=== PATIENT | male | born 1960 | race African-American/Black ===

== ENCOUNTER 2020-04-19 05:54 | Outpatient (REF) | payer BC, SELFPAY ==
[2020-04-19 07:20] LABS: MANUAL DIFF FLAG NO
[2020-04-19 07:21] LABS: Basophils Percent Auto 0.3 % (0-2); Eosinophils Absolute Auto 0.4 X10*3/uL (0.0-0.4); Eosinophils Percent Auto 4.6 % (0-4); Hematocrit 41.9 % (42-52); Hemoglobin 13.7 g/dl (14.0-18.0); Imm Gran Abs Auto 0.03 X10*3/uL (0.00-0.03); Imm Gran Pct Auto 0.3 % (0.0-0.4); Lymphocytes Absolute Auto 4.2 X10*3/uL (1.2-4.9); Lymphocytes Percent Auto 46.3 % (20-40); Mean Corpuscular HGB Conc 32.7 g/dl (31.0-36.0); Mean Corpuscular Hemoglobin 29.1 pg (27.0-33.0); Mean Platelet Volume 12.1 fL (9.4-12.4); Monocytes Percent Auto 11.6 % (2-11); Neutrophils Absolute Auto 3.3 X10*3/uL (2.0-8.3); Neutrophils Percent Auto 36.9 % (45-73); Platelet Count 107 X10*3/uL (160-400); Red Blood Count 4.71 X10*6/uL (4.60-5.80); Red Cell Distribution Width 12.9 % (11.0-16.0)
[2020-04-19 07:34] LABS: Estimated Average Glucose 157 mg/dL; Hemoglobin A1c % 7.1 %
[2020-04-19 07:52] LABS: Alanine Aminotransferase 18 U/L (0-40); Alkaline Phosphatase 61 U/L (39-117); Anion Gap 13 (12-20); Aspartate Amino Transferase 27 U/L (5-37); Bilirubin Total 0.3 mg/dL (0.0-1.0); Blood Urea Nitrogen 37 mg/dL (9-16); Calcium 9.2 mg/dL (8.4-10.2); Carbon Dioxide 23 mmol/L (22-29); Chloride 105 mmol/L (96-108); Cholesterol 277 mg/dL; Estimated Glomerular Filt Rate 24; Glucose Random 184 mg/dL (60-115); HDL Cholesterol 27 mg/dL; Potassium 4.2 mmol/l (3.3-5.1); Sodium 137 mmol/L (135-145); Total Protein 7.4 g/dL (6.5-8.0); Triglycerides 727 mg/dL
[2020-04-20 14:47] LABS: Absolute CD3 Count 2829 cells/uL (840-3060); Absolute CD4 Count 1203 cells/uL (490-1740); Absolute CD8 Count 1442 cells/uL (180-1170); Absolute Lymphocytes 4272 cells/uL (850-3900); CD4 CD8 Ratio 0.83 (0.86-5.00); Percent CD3 Cells 66 % (57-85); Percent CD4 Cells 28 % (30-61); Percent CD8 Cells 34 % (12-42)
[2020-04-21 14:48] LABS: HIV RNA PCR Qn Copies 97 copies/mL (NOT DETECTED); HIV RNA PCR Qn Log Copies 1.99 (NOT DETECTED)
== END 2020-04-19 05:55 | disposition home or self-care (01) ==
LOC: HO.LAB 05:54
PROVIDERS: PCP Family Medicine; Visit Provider Family Medicine
DX: B20 Human immunodeficiency virus [HIV] disease (principal); E11.8 Type 2 diabetes mellitus with unspecified complications; E78.5 Hyperlipidemia, unspecified
CPT/HCPCS: 36415; 80053; 80061; 83036; 85025; 86359; 86360; 87536

== ENCOUNTER 2020-07-20 15:23 | Outpatient (REF) | payer BC, SELFPAY ==
[2020-07-20 16:09] LABS: PLT CLUMP 1; Red Cell Distribution Width 13.3 % (11.0-16.0); SCAN SMEAR FLAG 1
[2020-07-20 16:11] LABS: Basophils Percent Auto 0.5 % (0-2); Eosinophils Absolute Auto 0.3 X10*3/uL (0.0-0.4); Hematocrit 38.6 % (42-52); Hemoglobin 12.7 g/dl (14.0-18.0); Imm Gran Abs Auto 0.01 X10*3/uL (0.00-0.03); Imm Gran Pct Auto 0.1 % (0.0-0.4); Lymphocytes Absolute Auto 3.1 X10*3/uL (1.2-4.9); Lymphocytes Percent Auto 41.5 % (20-40); Mean Corpuscular HGB Conc 32.9 g/dl (31.0-36.0); Mean Corpuscular Hemoglobin 29.1 pg (27.0-33.0); Mean Corpuscular Volume 88.5 fL (80-98); Mean Platelet Volume 11.5 fL (9.4-12.4); Monocytes Absolute Auto 0.8 X10*3/uL (0.1-1.2); Monocytes Percent Auto 11.1 % (2-11); Neutrophils Absolute Auto 3.2 X10*3/uL (2.0-8.3); Neutrophils Percent Auto 42.8 % (45-73); Platelet Count 102 X10*3/uL (160-400); Red Blood Count 4.36 X10*6/uL (4.60-5.80); White Blood Count 7.5 X10*3/uL (4.8-10.8)
[2020-07-20 16:25] LABS: Alanine Aminotransferase 18 U/L (0-40); Albumin Level 3.9 g/dL (3.5-5.0); Alkaline Phosphatase 60 U/L (39-117); Anion Gap 12 (12-20); Aspartate Amino Transferase 24 U/L (5-37); Bilirubin Total 0.3 mg/dL (0.0-1.0); Blood Urea Nitrogen 31 mg/dL (9-16); Carbon Dioxide 26 mmol/L (22-29); Chloride 106 mmol/L (96-108); Estimated Glomerular Filt Rate 23; Glucose Random 156 mg/dL (60-115); Potassium 4.8 mmol/L (3.3-5.1); Sodium 139 mmol/L (135-145); Total Protein 7.1 g/dL (6.5-8.0)
[2020-07-21 09:44] LABS: CT PCR NOT DETECTED (Not Detect.); NG PCR NOT DETECTED (Not Detect.)
[2020-07-21 13:07] LABS: Absolute CD4 Count 738 cells/uL (490-1740); Absolute CD8 Count 1054 cells/uL (180-1170); Absolute Lymphocytes 3111 cells/uL (850-3900); Percent CD4 Cells 24 % (30-61); Percent CD8 Cells 34 % (12-42)
[2020-07-22 13:06] LABS: HCV Log PCR <1.18 NOT DETECTED Log IU/mL (NOT DETECTED); HepC Viral Load <15 NOT DETECTED IU/mL (NOT DETECTED)
[2020-07-22 17:02] LABS: HIV RNA PCR Qn Copies 53 Copies/mL; HIV RNA PCR Qn Log Copies 1.72 Log cps/mL
[2020-07-22 17:51] LABS: TS Negative Control Passed; TS Panel A 2; TS Panel B 0; TS Positive Control Passed; TSpotTB Negative (SeeBelow)
== END 2020-07-20 15:24 | disposition home or self-care (01) ==
LOC: HO.LAB 15:23
PROVIDERS: PCP Family Medicine; Visit Provider Internal Medicine Infectious Disease
DX: D83.1 Common variable immunodeficiency with predominant immunoregulatory T-cell disorders (principal)
CPT/HCPCS: 36415; 80053; 85025; 86360; 86481; 87491; 87522; 87536; 87591; 87900; 87901

== ENCOUNTER 2020-10-02 15:32 | Outpatient (REF) | payer BC, SELFPAY | END 2020-10-02 15:33 | disposition home or self-care (01) | LOC: HO.LAB 15:32 | PROVIDERS: Absent Provider Family Medicine; PCP Family Medicine; Visit Provider Internal Medicine Infectious Disease | DX: Z13.89 Encounter for screening for other disorder (principal) ==

== ENCOUNTER 2020-11-14 12:57 | Outpatient (REF) | payer BC, SELFPAY ==
--- NOTE | ~2020-11-14 | XR_ITS ---
EXAMINATION: XR HIP, LEFT CLINICAL INFORMATION: Pain COMPARISON: None TECHNIQUE: Two views of the left hip. FINDINGS: Bones and soft tissues are normal. No fracture. Alignment is anatomic. Hip joint space is maintained. XR/XR hip LT min 2V IMPRESSION: Normal left hip.
== END 2020-11-14 12:58 | disposition home or self-care (01) ==
LOC: HO.XRAY 12:57
PROVIDERS: Absent Provider Family Medicine; PCP Family Medicine; Visit Provider Emergency Medicine
DX: M25.552 Pain in left hip (principal)
CPT/HCPCS: 73502

== ENCOUNTER 2021-01-04 14:00 | Outpatient (RCR) | payer BC, SELFPAY | END 2021-01-19 15:11 | disposition home or self-care (01) | LOC: HO.PT 14:00 | PROVIDERS: PCP Nurse Practitioner Primary Care; Visit Provider Nurse Practitioner Primary Care | DX: M79.605 Pain in left leg (principal) | CPT/HCPCS: 97110; 97112; 97162; 97530 ==

== ENCOUNTER 2021-02-14 08:23 | Outpatient (REF) | payer BC, SELFPAY ==
--- NOTE | ~2021-02-14 | US_ITS ---
EXAMINATION: US ABDOMEN COMPLETE CLINICAL INFORMATION: Cirrhosis. COMPARISON: Abdominal ultrasound 07/28/2015. CT abdomen and pelvis 11/27/2017. TECHNIQUE: Real-time imaging of the abdominal viscera. FINDINGS: PANCREAS: The visualized pancreas is normal in size and contour and echogenicity with no pancreatic ductal distention or retroperitoneal effusion. The distal body and tail are obscured by bowel gas and not imaged. ABDOMINAL AORTA: The proximal, mid, and distal segments are normal in caliber. INFERIOR VENA CAVA: Visualized portions are normal. LIVER: The liver is within normal size and liver surface is smooth in contour. The parenchymal echogenicity appears normal and homogeneous. There is no focal parenchymal lesion or intrahepatic ductal dilatation. Doppler shows portal flow towards the liver. GALLBLADDER: No visible gallstone or sludge. No gallbladder wall thickening or pericholecystic fluid. Negative sonographic Lewis's sign. COMMON BILE DUCT: Normal in caliber measuring 0.3 cm in diameter. RIGHT KIDNEY: No hydronephrosis or renal calculi. The kidney measures 10.5 cm in maximum dimension. There is a simple cyst lower pole measuring 1.7 cm in size. A few other smaller subcentimeter cysts are also present upper to midpole. No additional follow-up required. LEFT KIDNEY: No hydronephrosis or renal calculi. The kidney measures 9.2 cm in maximum dimension. There is a simple cyst interpolar region measuring 1.1 cm. No additional follow-up required. SPLEEN: Normal. The spleen measures 11.5 cm in maximum dimension. FREE FLUID: None. US/US abdomen complete IMPRESSION: 1. Liver normal in size and homogeneous. Portal flow towards the liver. 2. Spleen normal in size. No ascites. 3. No cholelithiasis or ductal dilatation.
== END 2021-02-14 08:24 | disposition home or self-care (01) ==
LOC: HO.US 08:23
PROVIDERS: PCP Family Medicine; Visit Provider Family Medicine
DX: K74.69 Other cirrhosis of liver (principal)
CPT/HCPCS: 76700

== ENCOUNTER 2021-08-14 07:39 | Outpatient (REF) | payer BC, SELFPAY ==
--- NOTE | ~2021-08-14 | US_ITS ---
EXAMINATION: US ABDOMEN COMPLETE CLINICAL INFORMATION: Cirrhosis of liver. COMPARISON: Ultrasound abdomen complete 07/20/2021 and 02/14/2021. CT abdomen and pelvis 11/27/2017. TECHNIQUE: Real-time imaging of the abdominal viscera. FINDINGS: PANCREAS: Visualized pancreatic head and body are unremarkable. The distal body and tail are obscured by bowel gas. ABDOMINAL AORTA: The proximal, mid, and distal segments are normal in caliber. INFERIOR VENA CAVA: Visualized portions are normal. LIVER: The liver is normal in size. The liver contour is normal. Liver parenchyma is coarsened and heterogeneous compatible with history of cirrhosis. No focal hepatic lesion. There is no intrahepatic biliary duct dilatation seen. GALLBLADDER: The gallbladder is completely contracted. COMMON BILE DUCT: Normal in caliber measuring 0.3 cm in diameter. RIGHT KIDNEY: There is an anechoic 2.1 cm cyst at the lower pole of the kidney as well as an anechoic 9 mm cyst at the upper pole. No hydronephrosis or renal calculi. The kidney measures 11.4 cm in maximum dimension. LEFT KIDNEY: There is an anechoic simple cyst at the midpole which measures 1.3 x 1.1 x 1.5 cm. No hydronephrosis or renal calculi. The kidney measures 10.3 cm in maximum dimension. SPLEEN: Normal. The spleen measures 12.0 cm in maximum dimension. FREE FLUID: None. US/US abdomen complete IMPRESSION: Coarsened liver parenchyma compatible with cirrhosis without evidence of focal lesion. Incidental note of contracted gallbladder despite fasting state.
== END 2021-08-14 07:40 | disposition home or self-care (01) ==
LOC: HO.US 07:39
PROVIDERS: Visit Provider Family Medicine
DX: K74.69 Other cirrhosis of liver (principal)
CPT/HCPCS: 76700

== ENCOUNTER 2022-01-29 14:41 | Outpatient (REF) | payer BC, SELFPAY ==
--- NOTE | ~2022-01-29 | XR_ITS ---
EXAMINATION: XR SHOULDER, RIGHT CLINICAL INFORMATION: Pain right shoulder COMPARISON: None TECHNIQUE: AP external rotation, Grashey, scapular Y, and axillary views of the right shoulder. FINDINGS: There is loss of right AC joint space with periarticular spurring. Glenohumeral joint space is minimally reduced as well. No fracture, loose bodies or bony erosive changes seen no soft tissue calcification. XR/XR shoulder RT min 2V IMPRESSION: Mild degenerative changes right AC joint. No visible acute fracture or dislocation seen.
== END 2022-01-29 14:42 | disposition home or self-care (01) ==
LOC: HO.XRAY 14:41
PROVIDERS: PCP Family Medicine; Visit Provider Internal Medicine Geriatric Medicine
DX: M25.511 Pain in right shoulder (principal)
CPT/HCPCS: 73030

== ENCOUNTER 2022-02-27 09:52 | Outpatient (REF) | payer BC, SELFPAY ==
--- NOTE | ~2022-02-27 | US_ITS ---
EXAMINATION: US ABDOMEN COMPLETE CLINICAL INFORMATION: Chronic viral hepatitis C. HIV positive. COMPARISON: Ultrasound abdomen complete 08/14/2021 and 07/20/2021. CT abdomen and pelvis 11/27/2017. TECHNIQUE: Real-time imaging of the abdominal viscera. FINDINGS: PANCREAS: There is mild generalized increase in parenchymal echotexture, likely reflecting fatty infiltration. No mass or ductal dilatation is noted. There is no peripancreatic acute fluid collection. ABDOMINAL AORTA: The proximal, mid, and distal segments are normal in caliber. INFERIOR VENA CAVA: Visualized portions are normal. LIVER: The liver is normal in size, with a longitudinal span of 14.2 cm The liver contour is normal. Parenchymal echogenicity is coarse. No focal hepatic lesion. There is no intrahepatic biliary duct dilatation seen. GALLBLADDER: The gallbladder is contracted. No calculus or pericholecystic fluid is seen. COMMON BILE DUCT: Normal in caliber measuring 0.3 cm in diameter. RIGHT KIDNEY: At the lower pole, a 2.3 cm in maximal diameter anechoic, simple cyst is seen. No hydronephrosis or renal calculi. The kidney measures 12.1 cm in maximum dimension. LEFT KIDNEY: At the interpolar aspect, a 1.3 cm in maximal diameter anechoic, simple cyst is seen. No hydronephrosis or renal calculi. The kidney measures 10.6 cm in maximum dimension. At the lower pole, there is a vessel showing turbulent, bidirectional flow, possibly reflecting an arteriovenous fistula. There is a history of prior left renal biopsy. SPLEEN: Normal. The spleen measures 11.4 cm in maximum dimension. FREE FLUID: There is a small amount of free fluid posterior to the left hepatic lobe. US/US abdomen complete IMPRESSION: 1. There is generalized increase in hepatic echotexture, consistent with fatty infiltration or hepatocellular disease. Please correlate clinically. No focal hepatic mass or intrahepatic biliary dilatation is seen. 2. Benign, now simple appearing bilateral renal cysts are seen, for which no imaging follow-up is recommended. 3. There is a vessel at the inferior left kidney showing turbulent, bidirectional flow. The possibility of a fistula is raised, given the history of prior biopsy at this location. 4. There is a small amount of anechoic, free fluid noted posterior to the left hepatic lobe.
== END 2022-02-27 09:53 | disposition home or self-care (01) ==
LOC: HO.US 09:52
PROVIDERS: Visit Provider Family Medicine
DX: B18.2 Chronic viral hepatitis C (principal); B20 Human immunodeficiency virus [HIV] disease
CPT/HCPCS: 76700

== ENCOUNTER 2022-04-10 14:00 | Outpatient (RCR) | payer BC, SELFPAY ==
--- NOTE | 2022-03-01 14:01 | MHC.PT.EP ---
[facility] [place] Office [place] Office [place] Office [address] Steph Wadsworth [address] [phone] F: [phone] F: [phone] F: [phone] F: [phone] Physical Therapy Plan of Care Date of Evaluation: Date of Surgery: N/A Diagnosis: R rotator cuff tendonitis (RC) Assessment: pt is a 62 y/o male presenting to physical therapy w/ referring diagnosis of right rotator cuff tendinitis. Impairments include pain, decreased range of motion, decreased strength, impaired functional mobility, impaired postural awareness, and altered ambulation mechanics. pt is a good candidate for skilled PT due to age, potential remediation of impairments, typical disease/condition progression and prognosis, comorbidities, and motivation. pt would benefit from skilled PT intervention to provide a tailored strengthening and stretching exercise program, functional training, gait training, postural re-training, neuromuscular re-education, modalities as needed for pain, equipment safety demonstration. Frequency and Duration: The patient will be seen 2x/wk for 4 wks Short Term Goals: pt will be I w/ HEP to promote self-management of condition. pt will improve R shoulder flexion by 10 degrees to promote ease in reaching for objects on higher shelves. Senior Care Goals: pt will report a statistically significant improvement in self-reported outcome measure, SPADI, to promote return to PLOF. pt will tolerate x5 reps 50# object lifting overhead w/o verbal cueing for mechanics to promote return to work. Treatment Plan: Modalities to reduce pain, spasms and effusion. Manual therapy to restore motion and function. Therapeutic exercise to improve strength and flexibility. Neuromuscular re-education for posture and balance. Therapeutic activities to return to functional activities of daily living. Electronically signed by: Charley Manning PT, DPT Please sign and return to therapist. Thank you for your referral.
--- NOTE | 2022-04-23 17:19 | MHC.PT.DC ---
[facility] [place] Office [place] Office [place] Office [address] Steph Wadsworth 140 [facility] [phone] F: [phone] F: [phone] F: [phone] F: [phone] Physical Therapy Discharge Report Diagnosis: R rotator cuff tendonitis (RC) Date of Surgery: N/A Date of Evaluation: 03/01/22 Date of Discharge: 04/23/22 Treatments to Date: 7 Cancellations to Date: 2 No Shows to Date: 0 Discharge Status: Recommend MD Follow-up Visit Non-compliance Discharge Summary: The patient cancelled his last scheduled visit and has not attempted to make any more appointments in 25 days. He is being discharged from this physical therapy plan of care at this time. At time of last appointment he was reporting little to no improvement of his shoulder pain. He was planning to schedule an MRI of the shoulder soon. Electronically signed by: Charley Manning PT, DPT Please sign and return to therapist. Thank you for your referral.
== END 2022-04-23 17:20 | disposition home or self-care (01) ==
LOC: HO.PT 14:00
PROVIDERS: PCP Family Medicine; Visit Provider Physician Assistant
DX: M75.80 Other shoulder lesions, unspecified shoulder (principal)
CPT/HCPCS: 97110; 97162

== ENCOUNTER 2022-04-18 15:47 | Outpatient (REF) | payer BC, SELFPAY ==
--- NOTE | ~2022-04-18 | MR_ITS ---
EXAMINATION: MR SHOULDER WITHOUT CONTRAST, RIGHT CLINICAL INFORMATION: Right shoulder bicipital tendinitis. Right shoulder pain x3 months. COMPARISON: Radiograph dated 01/29/2022. TECHNIQUE: MRI of the shoulder without contrast was performed on a high-field scanner. FINDINGS: ROTATOR CUFF: A full-thickness insertional tear of the supraspinatus tendon measures 1.8 cm AP with retraction of the torn fibers medially by 1.8 cm. A partial-thickness, articular-sided component of the tear extends posteriorly into the anterior fibers of the infraspinatus tendon by 1 cm. Undersurface fibers or delaminated and medially retracted off along with the biceps britany to the level of the humeral head apex (2.4 cm). Plantar is moderate subscapularis tendinosis with fraying of the cephalad fibers at the insertion on the lesser tuberosity. Underlying subcortical cystic change and edema signal are evident at the lesser tuberosity in this region. There is grade 1 fatty replacement of the supraspinatus muscle without significant associated atrophy. Rotator cuff musculature is otherwise unremarkable. BICEPS: Normal. CORACOACROMIAL ARCH: The undersurface of the acromion is curved with a prominent anterior subacromial spur. Subacromial space measures 7 mm. The coracohumeral interval measures 7 mm. LABRUM/CAPSULE: A subtle focal tear is suspected at the posterosuperior glenoid labrum between the 10 o'clock position and 9 o'clock position, best seen on image 11/25 of series 2. The glenoid labrum appears degenerated posteriorly and relatively diminutive, partially replaced by marginal osteophytes. Labrum is otherwise intact. Joint capsule is unremarkable. GLENOHUMERAL JOINT/MARROW: No fracture or malalignment. Fgcaf-se-[id number] size marginal osteophytes at the glenoid, more pronounced posteriorly. Articular cartilage appears relatively well-preserved. No fractures. No effusion or loose bodies. MR/MR shoulder RT wo con IMPRESSION: 1. A 1.8 x 1.8 cm full-thickness insertional tear of the supraspinatus tendon with partial-thickness articular-sided extension into the anterior fibers of the infraspinatus tendon. No significant muscle atrophy. 2. Moderate subscapularis tendinosis with fraying of the cephalad fibers. 3. Prominent anterior subacromial spur. 4. Minimal glenohumeral osteoarthritis with a focal tear of the posterosuperior glenoid labrum.
== END 2022-04-18 15:48 | disposition home or self-care (01) ==
LOC: HO.MRI 15:47
PROVIDERS: Visit Provider Physician Assistant
DX: M75.21 Bicipital tendinitis, right shoulder (principal); M75.80 Other shoulder lesions, unspecified shoulder
CPT/HCPCS: 73221

== ENCOUNTER → 2022-05-02 14:27 | Outpatient (BNVA) | payer BC, SELFPAY | PROVIDERS: PCP Family Medicine; Visit Provider Orthopaedic Surgery | DX: Z13.89 Encounter for screening for other disorder (principal) ==

== ENCOUNTER 2022-05-03 09:23 | Outpatient (REF) | payer BC, SELFPAY ==
--- NOTE | ~2022-05-03 | US_ITS ---
EXAMINATION: US ABDOMEN COMPLETE CLINICAL INFORMATION: Chronic viral hepatitis C. COMPARISON: Ultrasound abdomen complete 02/27/2022 and 08/14/2021. CT abdomen and pelvis 11/27/2014. TECHNIQUE: Real-time imaging of the abdominal viscera. FINDINGS: PANCREAS: Normal. The visualized pancreatic head and body are normal in appearance. The remainder of the pancreas is obscured from visualization by the overlying bowel gas. ABDOMINAL AORTA: The proximal, mid, and distal segments are normal in caliber. INFERIOR VENA CAVA: Visualized portions are normal. LIVER: There is diffuse increased liver parenchymal echogenicity. No focal hepatic mass is seen. The liver is normal in size and contour. No biliary ductal dilatation. GALLBLADDER: The gallbladder is somewhat contracted, without evidence of stones, sludge, polyps, wall thickening or pericholecystic fluid. COMMON BILE DUCT: Normal in caliber measuring 0.2 cm in diameter. RIGHT KIDNEY: There are multiple simple cysts, the largest at the lower pole showing a maximal diameter of 2.5 cm. No hydronephrosis or renal calculi. The kidney measures 11.4 cm in maximum dimension. LEFT KIDNEY: There are multiple simple cysts, the largest at the interpolar aspect showing a maximal diameter 1.3 cm. No hydronephrosis or renal calculi. The kidney measures 10.8 cm in maximum dimension. At the lower pole, there is prominent vasculature bilaterally turbulent flow and increased velocities, suspicious for an arteriovenous fistula. SPLEEN: Normal. The spleen measures 11.6 cm in maximum dimension. FREE FLUID: None. US/US abdomen complete IMPRESSION: 1. There is generalized increase in hepatic echotexture, consistent with fatty infiltration or hepatocellular disease. Please correlate clinically. Provided history of chronic hepatitis C noted. No focal hepatic mass or intrahepatic biliary dilatation is seen. 2. There are benign, simple bilateral renal cysts, which no imaging follow-up recommended. 3. Question left renal lower pole arteriovenous fistula, again noted at the site of a prior renal biopsy.
== END 2022-05-03 09:24 | disposition home or self-care (01) ==
LOC: HO.US 09:23
PROVIDERS: PCP Family Medicine; Visit Provider Family Medicine
DX: B18.2 Chronic viral hepatitis C (principal); K74.60 Unspecified cirrhosis of liver
CPT/HCPCS: 76700

== ENCOUNTER 2022-05-17 07:19 | Outpatient (REF) | payer BC, SELFPAY ==
--- NOTE | ~2022-05-17 | XR_ITS ---
EXAMINATIONS: XR wrist RT min 3V, XR hand RT min 3V CLINICAL INFORMATION: Reason for Exam M25.539 - Pain in unspecified wrist COMPARISON: None VIEWS: Frontal lateral and oblique right wrist and right hand. FINDINGS: Mild degenerative osteoarthritic changes of the first carpometacarpal joint. Small round radiolucency with sclerotic border probably bone cyst in the head of the third metacarpal. There is no evidence of acute fracture or dislocation. The distal radius is intact. The radiocarpal, intercarpal and carpal/metacarpal joints are intact. Ulnar styloid is intact. The scapholunate joint is normal. The lunate is properly positioned. The [id number]-qdzv-qhyzjibg access is normal. The scaphoid bone is a properly articulating. XR/XR wrist RT min 3V IMPRESSION: * No fracture. * Mild degenerative osteoarthritis first carpometacarpal joint. * Small radiolucency with sclerotic border in the head of the third metacarpal suggesting nonaggressive bone lesion such as probably bone cyst or small enchondroma..
--- NOTE | ~2022-05-17 | XR_ITS ---
EXAMINATIONS: XR wrist RT min 3V, XR hand RT min 3V CLINICAL INFORMATION: Reason for Exam M25.539 - Pain in unspecified wrist COMPARISON: None VIEWS: Frontal lateral and oblique right wrist and right hand. FINDINGS: Mild degenerative osteoarthritic changes of the first carpometacarpal joint. Small round radiolucency with sclerotic border probably bone cyst in the head of the third metacarpal. There is no evidence of acute fracture or dislocation. The distal radius is intact. The radiocarpal, intercarpal and carpal/metacarpal joints are intact. Ulnar styloid is intact. The scapholunate joint is normal. The lunate is properly positioned. The [id number]-skgr-xxnbedso access is normal. The scaphoid bone is a properly articulating. XR/XR hand RT min 3V IMPRESSION: * No fracture. * Mild degenerative osteoarthritis first carpometacarpal joint. * Small radiolucency with sclerotic border in the head of the third metacarpal suggesting nonaggressive bone lesion such as probably bone cyst or small enchondroma..
== END 2022-05-17 07:20 | disposition home or self-care (01) ==
LOC: HO.HOSX 07:19
PROVIDERS: Visit Provider Physician Assistant
DX: L03.113 Cellulitis of right upper limb (principal); M79.641 Pain in right hand; M25.531 Pain in right wrist
CPT/HCPCS: 73110; 73130

== ENCOUNTER → 2022-05-20 09:22 | Outpatient (BNVA) | payer BC, SELFPAY | PROVIDERS: PCP Family Medicine; Visit Provider Physician Assistant | DX: L03.113 Cellulitis of right upper limb (principal) ==

== ENCOUNTER → 2022-05-24 10:37 | Outpatient (BNVA) | payer BC, SELFPAY | PROVIDERS: PCP Family Medicine; Visit Provider Physician Assistant | DX: Z13.89 Encounter for screening for other disorder (principal) ==

== ENCOUNTER → 2022-06-03 14:21 | Outpatient (BNVA) | payer BC, SELFPAY | PROVIDERS: PCP Family Medicine; Visit Provider Physician Assistant | DX: Z13.89 Encounter for screening for other disorder (principal) ==

== ENCOUNTER → 2022-07-08 13:03 | Outpatient (BNVA) | payer BC, SELFPAY | PROVIDERS: PCP Family Medicine; Visit Provider Physician Assistant | DX: Z13.89 Encounter for screening for other disorder (principal) ==

== ENCOUNTER 2022-07-17 11:24 | Inpatient (IN) | payer BC, SELFPAY ==
[2022-05-30 15:40] VITALS: BMI 34.0
--- NOTE | 2022-07-16 09:40 | P.CONAN_ITS ---
Documented by User: Maegan Gonzalez NP 07/16/22 09:51 HPI - Anesthesia Eval Consult details Narrative: 62yo M for Right Arthroscopic Rotator Cuff Repair Stage IV-V CKD, follows renal. Last seen 03/2022 with referral to [facility] transplant program. [facility] Active Problems Active Problems: All Active Problems (Updated 05/31/22 @ 09:46 by Karyn Toro RN) Rotator cuff tendonitis (Acute) Biceps tendinitis of right shoulder (Acute) Rotator cuff tear arthropathy of right shoulder (Acute) Diabetes mellitus (Acute) Cellulitis of right hand (Acute) Past Medical History Medical History Chronic kidney disease (CKD) Diabetes Hand pain, right HIV (human immunodeficiency virus infection) Hx of hepatitis C Hypertension Surgical History Surgical History Hx of circumcision Hx of colonoscopy Social History Social History Are you a primary director of patient care to a significant other at home: No Do you presently have visiting nurse or other home services: No Patient Tobacco Use Status: Former Tobacco user Quit Date: 2012 Tobacco use type: Cigarette Use of substances other than those prescribed or required for medical reasons: No Have you been hit, kicked, punched, or otherwise hurt by someone within the past year? 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 Meds Allergies Allergy/AdvReac Type Severity Reaction Status Date / Time No Known Allergies Allergy Verified 07/08/22 13:09 [No Known Allergies*] Home Medications Medication Instructions Recorded Confirmed Last Taken Type dolutegravir 50 mg-rilpivirine 25 1 tab PO DAILY 02/14/22 05/30/22 Unknown History mg tablet (Juluca) doxazosin 2 mg tablet 2 mg PO DAILY 02/14/22 05/30/22 Unknown History ergocalciferol (vitamin D2) 1,250 1,250 mcg PO QWEEK 02/14/22 05/30/22 Unknown History mcg (50,000 unit) capsule losartan 50 mg tablet 50 mg PO DAILY 02/14/22 05/30/22 Unknown History sitagliptin phosphate 25 mg tablet 25 mg PO DAILY 02/14/22 05/30/22 Unknown History (Januvia) acetaminophen 500 mg capsule 1,000 mg PO Q6H PRN Pain 05/30/22 05/30/22 Unknown History cholecalciferol (vitamin D3) 25 25 mcg PO DAILY 05/30/22 05/30/22 Unknown History mcg (1,000 unit) capsule (Vitamin D3) omega 3-fyk-qhr-fish oil 1,000 mg 1 cap PO DAILY 05/30/22 05/30/22 Unknown History (120 mg-180 mg) capsule (Fish Oil) Exam Exam Date and Time: July 16, 2022 0940 Height,Weight and Vital Signs: Height 5 ft 8 in Weight 101.605 kg Assessment and Plan Assessment Anesthesia Assessment: Chart Reviewed Documented by User: Charles Bae MD 07/17/22 08:52 PMFSH Past Medical History Medical History Chronic kidney disease (CKD) Diabetes Hand pain, right HIV (human immunodeficiency virus infection) Hx of hepatitis C Hypertension Family History Family history of problems with anesthesia: No Surgical History Surgical History Hx of circumcision Hx of colonoscopy History of Problems with Anesthesia: No Social History Social History Are you a primary director of patient care to a significant other at home: No Do you presently have visiting nurse or other home services: No Patient Tobacco Use Status: Former Tobacco user Quit Date: 2012 Tobacco use type: Cigarette Use of substances other than those prescribed or required for medical reasons: No Have you been hit, kicked, punched, or otherwise hurt by someone within the past year? 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 Meds Allergies Allergy/AdvReac Type Severity Reaction Status Date / Time No Known Allergies Allergy Verified 07/08/22 13:09 [No Known Allergies*] Home Medications Medication Instructions Recorded Confirmed Last Taken Type dolutegravir 50 mg-rilpivirine 25 1 tab PO DAILY 02/14/22 05/30/22 Unknown History mg tablet (Juluca) doxazosin 2 mg tablet 2 mg PO DAILY 02/14/22 05/30/22 Unknown History ergocalciferol (vitamin D2) 1,250 1,250 mcg PO QWEEK 02/14/22 05/30/22 Unknown History mcg (50,000 unit) capsule losartan 50 mg tablet 50 mg PO DAILY 02/14/22 05/30/22 Unknown History sitagliptin phosphate 25 mg tablet 25 mg PO DAILY 02/14/22 05/30/22 Unknown History (Januvia) acetaminophen 500 mg capsule 1,000 mg PO Q6H PRN Pain 05/30/22 05/30/22 Unknown History cholecalciferol (vitamin D3) 25 25 mcg PO DAILY 05/30/22 05/30/22 Unknown History mcg (1,000 unit) capsule (Vitamin D3) omega 8-qod-zgf-fish oil 1,000 mg 1 cap PO DAILY 05/30/22 05/30/22 Unknown History (120 mg-180 mg) capsule (Fish Oil) Exam Airway Mallampati Class: II TM Dist: >3cm Neck ROM: Limited Heart: rrr Lungs: cta Assessment and Plan Assessment Anesthesia Assessment: Anesthesia Plan Discussed Final Anesthetic Review Family History of Problems with Anesthesia: No History of Problems with Anesthesia: No NPO: Yes ASA Class: III Final Preanesthetic Review: No Changes in Pt Med Stat, Meds/Allgs Chart Reviewed, Consent Obtained/Reviewed and Anes Risks/Benef Reviewed Patient Risk: Intermediate Procedure Risk: Intermediate Anesthetic Plan Anesthetic Plan: GA and Regional Block Disposition: Standard PACU
[2022-07-17] VITALS (15 sets, daily range): BP systolic 97–177; BP diastolic 56–91; PULSE 75–94; RESP 15–18; TEMP 36.1–36.7; O2SAT 95–98; BMI 34.0
--- NOTE | 2022-07-17 | ECG_ITS ---
Test Reason : HTN Blood Pressure : / mmHG Vent. Rate : 089 BPM Atrial Rate : 089 BPM P-R Int : 160 ms QRS Dur : 076 ms QT Int : 354 ms P-R-T Axes : 056 -10 000 degrees QTc Int : 430 ms Normal sinus rhythm Normal ECG No previous ECGs available Referred By: Maegan Gonzalez Electronically Signed By:TOOTIE XAVIER
[2022-07-17 06:37] LABS: Glucose, Whole Blood 148 mg/dL (60-115)
[2022-07-17] MEDS: 0.9 % Sodium Chloride 1,000 ML 50 ML IVCONT (06:40)
[2022-07-17 07:22] LABS: Hematocrit 38.1 % (42.0-52.0); Hemoglobin 12.6 g/dl (14.0-18.0); Mean Corpuscular HGB Conc 33.1 g/dl (31.0-36.0); Mean Corpuscular Hemoglobin 29.1 pg (27.0-33.0); Mean Platelet Volume 11.3 fL (9.4-12.4); Platelet Count 115 X10*3/uL (160-400); Red Blood Count 4.33 X10*6/uL (4.60-5.80); Red Cell Distribution Width 13.3 % (11.0-16.0); White Blood Count 9.1 X10*3/uL (4.8-10.8)
[2022-07-17 07:23] LABS: Anion Gap 14 (12-20); Blood Urea Nitrogen 37 mg/dL (9-16); Calcium 9.1 mg/dL (8.4-10.2); Carbon Dioxide 20 mmol/L (22-29); Chloride 111 mmol/L (96-108); Glucose Fasting 159 mg/dL (60-99); Potassium 4.9 mmol/L (3.3-5.1); Sodium 140 mmol/L (135-145)
[2022-07-17 07:50] LABS: Creatinine Clr Calc Pharmacy 19.5; Estimated Glomerular Filt Rate 13
--- NOTE | 2022-07-17 09:32 | PM.OP ---
Brief Operative Note Date of Service: 07/17/22 Pre-op diagnosis: right RTC tear Post-op diagnosis: same Procedure: Right RTC repair Implants: [employer] double loaded medial row anchors [employer] knotless lateral anchors x 2 Surgeon: Isaías Cerna MD Anesthesia: GETA and regional Was an Deli Department Manager used for this Procedure?: Yes Deli Department Manager: Shyann Slaughter Estimated blood loss (mL): 20 IV fluids (mL): 50 Pathology: none sent Condition: stable Disposition: PACU
[2022-07-17 11:18] LABS: COVID-19 Test Negative (Negative); IDNOW Serial# 08D9AD1C
--- NOTE | 2022-07-17 12:55 | PM.EVENT ---
Event Note Date of Service: 07/17/22 Event Note: Patient is s/p Right shoulder RTC repair, the plan was to d/c home; however, labs performed this morning came back with BUN/Cr elevated at 37/4.46. The decision was made to admit the patient for extended stay with a nephrology consult for further evaluation and monitoring. Time Spent With Patient Time: Total time managing care of this patient today ____ minutes.
[2022-07-17] MEDS: Lactated Ringers 1,000 ML 100 ML IVCONT ×2 (14:40→22:41)
--- NOTE | 2022-07-17 14:54 | PHA.MEDREC ---
Pharmacy Consult ? Medication Reconciliation Pharmacy has reviewed the medication reconciliation completed by nursing. Add atrovastatin and allopurinol to home list. Madeline Garner, GuillerminaD
--- NOTE | 2022-07-17 15:56 | P.CONHOSP_ITS ---
History of Present Illness Data of Consult Service Date: 07/17/22 Primary Care Provider: Janet Magaña MD HPI 62 male with HTN, DM, HIV, CKD 3 . He had Right shoulder RTC repair today and after procedure was supposed to go home yet routine lab were checked and he was noted to have Cr of 4.46 so he's been observed overnight. There are no acute issues. His last know Creatine was 2. 83 in in July 2020. He has no trouble voiding Review of Systems Review of Systems: Gen: no fever Resp: no sob, no cough CV: no chest, no MONGE, no leg edema GI: No n/v, no abd pain Neuro: No confusion [facility] Medical History Chronic kidney disease (CKD) Diabetes Hand pain, right HIV (human immunodeficiency virus infection) Hx of hepatitis C Hypertension Surgical History Hx of circumcision Hx of colonoscopy Social History Household Members: Spouse Housing: House Are you a primary care transition mgr to a significant other at home: No Do you presently have visiting nurse or other home services: No Patient Tobacco Use Status: Former Tobacco user Quit Date: 2012 Tobacco use type: Cigarette Smoked in Last 30 Days: No e-Cigarette/Vaping Use: Never Used Patient Interested in Nicotine Replacement: No Patient Given Instructions on How to Stop Smoking: No Second Hand Smoke Exposure: No Use of substances other than those prescribed or required for medical reasons: No Currently Displaying Signs/Symptoms of Drug Intoxication Withdrawal: No Any prior treatment program specific to substance use: No Have you been hit, kicked, punched, or otherwise hurt by someone within the past year? 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, 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 Meds Allergies Allergy/AdvReac Type Severity Reaction Status Date / Time No Known Allergies Allergy Verified 07/08/22 13:09 [No Known Allergies*] Active Medications: Current Medications Acetaminophen (Acetaminophen 325 Mg Tablet) 650 mg PO Q6H PRN PRN Reason: Pain Dolutegravir Sodium (Dolutegravir Sodium 50 Mg Tablet) 50 mg PO DAILY [facility] Doxazosin Mesylate (Doxazosin Mesylate 2 Mg Tablet) 2 mg PO DAILY [facility]; Protocol Ergocalciferol (Ergocalciferol (Vitamin D2) 1,250 Mcg Capsule) 1,250 mcg PO Calderon@0900 [facility] Lactated Ringer's (Lr) 1,000 mls @ 100 mls/hr IVCONT .Q10H [facility] Last Admin: 07/17/22 14:40 Dose: 100 mls/hr Lactated Ringer's (Lr) 1,000 mls @ 100 mls/hr IVCONT .Q10H [facility] Last Admin: 07/17/22 14:45 Dose: Not Given Losartan Potassium (Losartan Potassium 50 Mg Tablet) 50 mg PO DAILY [facility]; Protocol Oxycodone HCl (Oxycodone Hcl Immed Release 5 Mg Tablet) 5 mg PO Q4H PRN PRN Reason: Pain, Moderate (Pain Scale 4-6 Oxycodone HCl (Oxycodone Hcl Er 10 Mg Tab.Er.12h) 10 mg PO BID [facility] Rilpivirine (Rilpivirine Hcl 25 Mg Tablet) 25 mg PO DAILY [facility] Sitagliptin Phosphate (Sitagliptin Phosphate 25 Mg Tablet) 25 mg PO DAILY [facility] Sodium Chloride (0.9 % Sodium Chloride Flush 3 Ml Syringe) 3 ml IVFLUSH QSHIFT [facility] Last Admin: 07/17/22 15:54 Dose: Not Given Vitamin D (Cholecalciferol (Vitamin D3) 25 Mcg Tablet) 25 mcg PO DAILY [facility] Home Medications Medication Instructions Recorded Confirmed Last Taken Type dolutegravir 50 mg-rilpivirine 25 1 tab PO DAILY 02/14/22 05/30/22 07/16/22 History mg tablet (Juluca) doxazosin 2 mg tablet 2 mg PO DAILY 02/14/22 05/30/22 07/16/22 History ergocalciferol (vitamin D2) 1,250 1,250 mcg PO CALDERON 02/14/22 07/17/22 07/16/22 History mcg (50,000 unit) capsule losartan 50 mg tablet 50 mg PO DAILY 02/14/22 05/30/22 07/16/22 History sitagliptin phosphate 25 mg tablet 25 mg PO DAILY 02/14/22 05/30/22 07/16/22 History (Januvia) acetaminophen 500 mg capsule 1,000 mg PO Q6H PRN Pain 05/30/22 07/17/22 Unknown History cholecalciferol (vitamin D3) 25 25 mcg PO DAILY 05/30/22 05/30/22 07/16/22 History mcg (1,000 unit) capsule (Vitamin D3) omega 6-dna-feq-fish oil 1,000 mg 1 cap PO DAILY 05/30/22 05/30/22 07/16/22 History (120 mg-180 mg) capsule (Fish Oil) allopurinol 100 mg tablet 50 mg PO MOTH 07/17/22 07/17/22 07/16/22 History atorvastatin 10 mg tablet 10 mg PO DAILY 07/17/22 07/17/22 07/16/22 History Physical Exam Vital Signs and Narrative: Vital Signs: Last Vital Signs Temp 97.6 F 07/17/22 13:33 Pulse 75 07/17/22 13:33 Resp 18 07/17/22 13:33 BP 126/71 07/17/22 13:33 Pulse Ox 96 07/17/22 13:33 O2 Del Method Room Air 07/17/22 13:33 O2 Flow Rate 5 07/17/22 10:19 BMI result Body Mass Index 34.0 Const: Other: Constitutional: Alert, in no distress, Mental Status: Oriented to person, place and time. Eyes: Pupils are equal, round and reactive to light. Ear, Nose and Throat: Oropharynx clear, mucous membranes moist. Ears and nose without eformities. Respiratory: Clear to auscultation. No wheezing, rales or rhonchi. Cardiovascular: S1 S2 regular. No murmurs, rubs or gallops. Gastrointestinal: Abdomen soft, non-tender, non-distended. Normal bowel sounds.? Neurologic: Cranial nerves II-XII grossly intact. No focal neurological deficits. Moves all extremities spontaneously.? Skin: No rashes or lesions.? Musculoskeletal: No cyanosis or clubbing. Psychiatric: Normal mood and affect? Results Labs 07/17/22 06:51 07/17/22 06:51 Labs: Laboratory Results - last 24 hr 07/17/22 07/17/22 07/17/22 06:33 06:51 06:51 MCV 88.0 MCH 29.1 MCHC 33.1 RDW 13.3 Plt Count 115 L MPV 11.3 Absolute Nucleated RBC 0.000 Nucleated RBC % (auto) 0.0 Anion Gap 14 Estim Creat Clear Calc 19.5 Estimated GFR 13 POC Glucose 148 H Fasting Glucose 159 H Calcium 9.1 COVID-19 (FRANCINE) COVID-19 Clin Com 07/17/22 10:49 MCV MCH MCHC RDW Plt Count MPV Absolute Nucleated RBC Nucleated RBC % (auto) Anion Gap Estim Creat Clear Calc Estimated GFR POC Glucose Fasting Glucose Calcium COVID-19 (FRANCINE) Negative COVID-19 Clin Com See Note Assessment and Plan (1) CKD (chronic kidney disease) stage 4, GFR 15-29 ml/min: Status: Acute Plan 62 male with HTN, DM, HIV, Hep C, HLD, CKD 3 . He had Right shoulder RTC repair today and after procedure was supposed to go home yet routine lab were checked and he was noted to have Cr of 4.46 so he's been observed overnight. There are no acute issues. His last know Creatine was 2. 83 in in July 2020. He has no trouble voiding * Stage 4 Severe CKD (GFR = 15-29 mL/min), I believe present Creatine reflects his baseline, try IVF, Kidney US, Nephrology consult as order * HTN--resume home meds * HIV-continue home meds (Losartan) * Diabetes--SSI, check glucse * HLD--statin (lipitor) Time Spent With Patient Time: Total time managing care of this patient today _30__ minutes.
[2022-07-17 16:35] LABS: Glucose, Whole Blood 130 mg/dL (60-115)
[2022-07-17] MEDS: oxyCODONE HCl Immed Release 5 MG TABLET PO (18:02)
[2022-07-17] MEDS: HYDROmorphone HCl 0.5 MG/0.5 ML SYRINGE 0.25 MG IVPUSH ×2 (18:50→22:40)
[2022-07-17 20:16] LABS: Glucose, Whole Blood 100 mg/dL (60-115)
[2022-07-17] MEDS: oxyCODONE HCl ER 10 MG TAB.ER.12H PO (20:44)
[2022-07-18 04:00] VITALS: BP 170/88; PULSE 116; RESP 18; TEMP 37.6; O2SAT 96
[2022-07-18] MEDS: HYDROmorphone HCl 0.5 MG/0.5 ML SYRINGE 0.25 MG IVPUSH (04:06)
[2022-07-18 06:33] LABS: Basophils Percent Auto 0.3 % (0-2); Eosinophils Absolute Auto 0.1 X10*3/uL (0.0-0.4); Eosinophils Percent Auto 0.9 % (0-4); Hematocrit 35.8 % (42.0-52.0); Hemoglobin 11.9 g/dl (14.0-18.0); Imm Gran Abs Auto 0.05 X10*3/uL (0.00-0.03); Imm Gran Pct Auto 0.4 % (0.0-0.4); Lymphocytes Absolute Auto 3.4 X10*3/uL (1.2-4.9); Lymphocytes Percent Auto 29.1 % (20-40); MANUAL DIFF FLAG SCAN; Mean Corpuscular HGB Conc 33.2 g/dl (31.0-36.0); Mean Corpuscular Hemoglobin 29.1 pg (27.0-33.0); Mean Corpuscular Volume 87.5 fL (80.0-98.0); Mean Platelet Volume 10.8 fL (9.4-12.4); Monocytes Absolute Auto 1.7 X10*3/uL (0.1-1.2); Monocytes Percent Auto 14.4 % (2-11); Neutrophils Absolute Auto 6.4 x10*3/uL (2.0-8.3); Neutrophils Percent Auto 54.9 % (45-73); Platelet Count 103 X10*3/uL (160-400); Red Blood Count 4.09 X10*6/uL (4.60-5.80); Red Cell Distribution Width 13.3 % (11.0-16.0); SCAN SMEAR FLAG 1; White Blood Count 11.7 X10*3/uL (4.8-10.8)
[2022-07-18 07:03] LABS: Anion Gap 15 (12-20); Blood Urea Nitrogen 31 mg/dL (9-16); Calcium 8.4 mg/dL (8.4-10.2); Carbon Dioxide 19 mmol/L (22-29); Chloride 108 mmol/L (96-108); Creatinine Clr Calc Pharmacy 21.6; Estimated Glomerular Filt Rate 15; Glucose Fasting 121 mg/dL (60-99); Glucose Random 120 mg/dL (60-115); Potassium 5.5 mmol/L (3.3-5.1); Sodium 136 mmol/L (135-145)
[2022-07-18 07:11] LABS: SLIDE REVIEW VERIFIED
[2022-07-18 07:35] LABS: Glucose, Whole Blood 115 mg/dL (60-115)
[2022-07-18] MEDS: Rilpivirine HCL 25 MG TABLET PO (07:58)
[2022-07-18] MEDS: oxyCODONE HCl ER 10 MG TAB.ER.12H PO ×2 (07:58→20:08)
[2022-07-18] MEDS: Dolutegravir Sodium 50 MG TABLET PO (07:58)
[2022-07-18] MEDS: Cholecalciferol (Vitamin D3) 25 MCG TABLET PO (07:58)
[2022-07-18] MEDS: Losartan Potassium 50 MG TABLET PO (07:59)
[2022-07-18] MEDS: Acetaminophen 325 MG TABLET 650 MG PO (07:59)
[2022-07-18 08:00] VITALS: BP 177/85; PULSE 113; RESP 20; TEMP 37.4; O2SAT 96
[2022-07-18] MEDS: oxyCODONE HCl Immed Release 5 MG TABLET PO ×3 (08:00→20:17)
[2022-07-18] MEDS: SITagliptin Phosphate 25 MG TABLET PO (08:00)
[2022-07-18] MEDS: Atorvastatin Calcium 10 MG TABLET PO (08:00)
[2022-07-18] MEDS: Doxazosin Mesylate 2 MG TABLET PO (08:00)
[2022-07-18] MEDS: Lactated Ringers 1,000 ML 100 ML IVCONT (08:03)
[2022-07-18] MEDS: allopurinoL 100 MG TABLET 50 MG PO (09:02)
--- NOTE | 2022-07-18 10:35 | PM.CNNEP ---
History of Present Illness Reason for Consult Consult date: 07/18/22 Reason for consult: CKD Chief Complaint Chief complaint: Unspecified rotator cuff tear,Other specific arthr History of Present Illness Narrative: 62-year-old man with a history of longstanding diabetes mellitus chronic kidney disease with a baseline creatinine of 3.8 back in March 2022, biopsy-proven FSGS. He has about 4 g of proteinuria. He has HIV and is on highly active anti-retroviral therapy. He underwent shoulder surgery. Subsequently blood work revealed a serum creatinine of 4.4. He was admitted for observation. Ringer's lactate has been started. Serum creatinine is marginally improved to 4.04. Potassium increased to 5.5. This consultation requested for management of acute kidney injury. Review of Systems Constitutional: Denies fatigue Eyes: Denies blurry vision Denies epistaxis and Denies tinnitus Respiratory: Denies chest congestion and Denies cough Genitourinary: Denies oliguria and Denies difficulty urinating Musculoskeletal: Denies numbness and Denies stiffness Skin/Breast: Denies dry skin and Denies pruritus Denies numbness Psychiatric: Denies irritability Endocrine: Denies fatigue PMFSH Past Medical History Medical History Chronic kidney disease (CKD) Diabetes Hand pain, right HIV (human immunodeficiency virus infection) Hx of hepatitis C Hypertension Surgical History Surgical History Hx of circumcision Hx of colonoscopy Social History Social History Household Members: Spouse Housing: House Are you a primary managed care liaison to a significant other at home: No Do you presently have visiting nurse or other home services: No Patient Tobacco Use Status: Former Tobacco user Quit Date: 2012 Tobacco use type: Cigarette e-Cigarette/Vaping Use: Never Used Second Hand Smoke Exposure: No service: No Current occupational status: employed 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, 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 Meds Allergies Allergy/AdvReac Type Severity Reaction Status Date / Time No Known Allergies Allergy Verified 07/08/22 13:09 [No Known Allergies*] Active Medications: Current Medications Acetaminophen (Acetaminophen 325 Mg Tablet) 650 mg PO Q6H PRN PRN Reason: Pain Last Admin: 03/30/23 07:59 Dose: 650 mg Allopurinol (Allopurinol 100 Mg Tablet) 50 mg PO MOTH [facility] Last Admin: 07/18/22 09:02 Dose: 50 mg Atorvastatin Calcium (Atorvastatin Calcium 10 Mg Tablet) 10 mg PO DAILY [facility] Last Admin: 07/18/22 08:00 Dose: 10 mg Dolutegravir Sodium (Dolutegravir Sodium 50 Mg Tablet) 50 mg PO DAILY [facility] Last Admin: 07/18/22 07:58 Dose: 50 mg Doxazosin Mesylate (Doxazosin Mesylate 2 Mg Tablet) 2 mg PO DAILY [facility]; Protocol Last Admin: 07/18/22 08:00 Dose: 2 mg Ergocalciferol (Ergocalciferol (Vitamin D2) 1,250 Mcg Capsule) 1,250 mcg PO Calderon@0900 [facility] Hydromorphone HCl (Hydromorphone Hcl 0.5 Mg/0.5 Ml Syringe) 0.25 mg IVPUSH Q4H PRN; Protocol PRN Reason: Pain, Severe (Pain Scale 7-10) Last Admin: 07/18/22 04:06 Dose: 0.25 mg Lactated Ringer's (Lr) 1,000 mls @ 100 mls/hr IVCONT .Q10H [facility] Last Admin: 07/18/22 08:03 Dose: 100 mls/hr Insulin Human Lispro (Insulin Lispro 100 Unit/Ml 3 Ml Vial) 0 unit SUBCUT QIDACHS [facility]; Protocol Last Admin: 07/18/22 07:42 Dose: Not Given Losartan Potassium (Losartan Potassium 50 Mg Tablet) 50 mg PO DAILY [facility]; Protocol Last Admin: 07/18/22 07:59 Dose: 50 mg Oxycodone HCl (Oxycodone Hcl Immed Release 5 Mg Tablet) 5 mg PO Q4H PRN PRN Reason: Pain, Moderate (Pain Scale 4-6 Last Admin: 07/18/22 08:00 Dose: 5 mg Oxycodone HCl (Oxycodone Hcl Er 10 Mg Tab.Er.12h) 10 mg PO BID [facility] Last Admin: 07/18/22 07:58 Dose: 10 mg Rilpivirine (Rilpivirine Hcl 25 Mg Tablet) 25 mg PO DAILY [facility] Last Admin: 07/18/22 07:58 Dose: 25 mg Sitagliptin Phosphate (Sitagliptin Phosphate 25 Mg Tablet) 25 mg PO DAILY [facility] Last Admin: 07/18/22 08:00 Dose: 25 mg Sodium Chloride (0.9 % Sodium Chloride Flush 3 Ml Syringe) 3 ml IVFLUSH QSHIFT [facility] Last Admin: 07/18/22 08:35 Dose: Not Given Vitamin D (Cholecalciferol (Vitamin D3) 25 Mcg Tablet) 25 mcg PO DAILY [facility] Last Admin: 07/18/22 07:58 Dose: 25 mcg Home Medications Medication Instructions Recorded Confirmed Last Taken Type dolutegravir 50 mg-rilpivirine 25 1 tab PO DAILY 02/14/22 05/30/22 07/16/22 History mg tablet (Juluca) doxazosin 2 mg tablet 2 mg PO DAILY 02/14/22 05/30/22 07/16/22 History ergocalciferol (vitamin D2) 1,250 1,250 mcg PO CALDERON 02/14/22 07/17/22 07/16/22 History mcg (50,000 unit) capsule losartan 50 mg tablet 50 mg PO DAILY 02/14/22 05/30/22 07/16/22 History sitagliptin phosphate 25 mg tablet 25 mg PO DAILY 02/14/22 05/30/22 07/16/22 History (Januvia) acetaminophen 500 mg capsule 1,000 mg PO Q6H PRN Pain 05/30/22 07/17/22 Unknown History cholecalciferol (vitamin D3) 25 25 mcg PO DAILY 05/30/22 05/30/22 07/16/22 History mcg (1,000 unit) capsule (Vitamin D3) omega 6-tfq-dpi-fish oil 1,000 mg 1 cap PO DAILY 05/30/22 05/30/22 07/16/22 History (120 mg-180 mg) capsule (Fish Oil) allopurinol 100 mg tablet 50 mg PO MOTH 07/17/22 07/17/22 07/16/22 History atorvastatin 10 mg tablet 10 mg PO DAILY 07/17/22 07/17/22 07/16/22 History Physical Exam Vital Signs: Last Vital Signs Temp 99.4 F 07/18/22 08:00 Pulse 113 H 07/18/22 08:00 Resp 20 07/18/22 08:00 BP 177/85 H 07/18/22 08:00 Pulse Ox 96 07/18/22 08:00 O2 Del Method Room Air 07/18/22 08:00 O2 Flow Rate 5 07/17/22 10:19 BMI result Body Mass Index 34.0 Constitutional: Alert, in no distress, Mental Status: Oriented to person, place and time. Eyes: Pupils are equal, round and reactive to light. Ear, Nose and Throat: Oropharynx clear, mucous membranes moist. Ears and nose without eformities. Respiratory: Clear to auscultation. No wheezing, rales or rhonchi. Cardiovascular: S1 S2 regular. No murmurs, rubs or gallops. Gastrointestinal: Abdomen soft, non-tender, non-distended. Normal bowel sounds.? Neurologic: Cranial nerves II-XII grossly intact. No focal neurological deficits. Moves all extremities spontaneously.? Skin: No rashes or lesions.? Musculoskeletal: No cyanosis or clubbing. Psychiatric: Normal mood and affect? Results Lab Results 07/18/22 06:21 07/18/22 06:21 Lab results: Chemistry 07/17/22 07/18/22 06:51 06:21 Sodium 140 136 Potassium 4.9 5.5 H Carbon Dioxide 20 L 19 L BUN 37 H 31 H Creatinine 4.46 H* 4.04 H* Calcium 9.1 8.4 D Hematology 07/17/22 07/18/22 06:51 06:21 WBC 9.1 11.7 H Hgb 12.6 L 11.9 L Plt Count 115 L 103 L Assessment and Plan (1) CKD (chronic kidney disease) stage 4, GFR 15-29 ml/min: Status: Acute Plan Novel has stage 4 chronic kidney disease with a baseline creatinine of about 3.8 mg/dL with EGFR of 17 mL/minute. He sustained acute kidney injury postoperatively most likely due to hypoperfusion. With volume repletion the serum creatinine is marginally improved. At present renal function is close to baseline. He has mild hyperkalemia this may be due to use of Ringer's lactate with continuous potassium in the setting of advanced renal failure. He has membranes obstructive uropathy. Recommendation Agree with IV hydration. I will change Ringer's lactate to normal saline at 80 cc/hour x1 L. Lokelma 10 g p.o. x1 g to correct the hyperkalemia. He should be ready for discharge in the next 24 hours if serum creatinine continues to improve. He needs close outpatient follow-up. We will be happy to follow him as needed. Thank you Time Spent With Patient Time: Total time managing care of this patient today ____ minutes. Procedures Date of Service Date of Service: 07/18/22
[2022-07-18 11:10] LABS: Glucose, Whole Blood 165 mg/dL (60-115)
[2022-07-18] MEDS: Sodium Zirconium Cyclosilicate 10 GM POWD.PACK PO (11:21)
[2022-07-18] MEDS: 0.9 % Sodium Chloride 1,000 ML 80 ML IVCONT (11:23)
[2022-07-18] MEDS: Insulin Lispro 100 UNIT/ML 3 ML VIAL SUBCUT (11:41)
--- NOTE | 2022-07-18 12:36 | PM.PNORT ---
Subjective Subjective Date of Service: 07/18/22 Interval history: POD 1 s/p Rt RTC repair no overnight events sling intact denies sob, cp, palpitations. Physical Exam Vital Signs: Vital Signs: Last Vital Signs Temp 99.4 F 07/18/22 08:00 Pulse 113 H 07/18/22 08:00 Resp 20 07/18/22 08:00 BP 177/85 H 07/18/22 08:00 Pulse Ox 96 07/18/22 08:00 O2 Del Method Room Air 07/18/22 08:00 O2 Flow Rate 5 07/17/22 10:19 BMI result Body Mass Index 34.0 Extrem: Other: incision clean dry and intact. No erythema or effusion. Neurovascularly intact. Procedures Date of Service Date of Service: 07/18/22 Progress Note: A&P Assessment and plan (1) Rotator cuff tear arthropathy of right shoulder: Status: Acute Assessment and Plan: Pain mgmnt Sling at all times ok to remove with PT nephrology consult: IV fluids recheck labs tomorrow dispo pending med clearance. Time Spent With Patient Time: Total time managing care of this patient today ____ minutes. Quality Stroke Does the patient have a stroke diagnosis?: No VTE Prior VTE?: No VTE Risk Level:: Surgical - moderate VTE Device Contraindication: N/A - Device Ordered VTE Drug Contraindication: Treatment Not Indicated
--- OUTSIDE RECORDS SUMMARY | 2022-07-18 13:02 | XMS_ITS | Continuity of Care Document ---
Author Name Unknown Organization [facility] ter Address [address] [place] [id number]- Care Team Providers Care Director Enterprise Sales Name Role Phone Janet Magaña MD Primary Care Physician [place] [facility] [place](s): 03/29/22 - 05/08/[address] [address]- Attending Physician: Yaya Dawson MD Admitting Physician: Yaya Dawson MD Referring Physician: Yaya Dawson MD Allergies, Adverse Reactions, Alerts No Known Allergies Medications Biktarvy oral tablet 1 tablet, By Mouth, Daily, 0 Refills, Maintenance, 11/21/17 8:27:48 EDT Start Date: 11/21/17 Status: Ordered Fish Oil 1000 mg oral capsule 1 capsule = 1,000 mg, By Mouth, 2 times a day, 0 Refills, Maintenance, 11/21/17 8:26:35 EDT, Capsule Start Date: 11/21/17 Status: Ordered Januvia 25 mg oral tablet 1 tablet = 25 mg, By Mouth, Daily, # 30 tablet, 0 Refills, Maintenance, 11/21/17 8:27:01 EDT, Tablet Start Date: 11/21/17 Status: Ordered losartan 25 mg oral tablet 25 mg, 1, tablet, By Mouth, Daily, # 30 tablet, Refills 0, Maintenance, 11/21/17 8:25:43 EDT Start Date: 11/21/17 Status: Ordered Vitamin D3 oral tablet 1 tablet = 400 International_Units, By Mouth, Daily, # 30 tablet, 0 Refills, Maintenance, 11/21/17 8:26:46 EDT, Tablet Start Date: 11/21/17 Status: Ordered Patient Care team information Care Team Personnel Name: Janet Magaña MD Position: [facility] Outreach Member Role: PCP Address: Address: [address] [place] [address]- Care Team Related Persons Name: BRAGADAQUAN Address: [place] [address]
--- OUTSIDE RECORDS SUMMARY | 2022-07-18 13:02 | XMS_ITS | Continuity of Care Document ---
Author Name Unknown Organization [facility] Address [address] [facility] [address] [place] [address]- Care Team Providers Care Family Practice Physician Assistant Name Role Phone Janet Magaña MD Primary Care Physician [id number] Date(s): 03/09/22 - 05/08/22 [facility] [address] [facility] [address] [place] [address]- Attending Physician: Yaya Dawson MD Admitting Physician: Yaya Dawson MD Allergies, Adverse Reactions, [...] Team Personnel Name: Janet Magaña MD Position: S Outreach Member Role: PCP Address: Address: [address] [place] [address]- Care Team Related Persons Name: DAQUAN BRAGA Address: [place] [address]
--- OUTSIDE RECORDS SUMMARY | 2022-07-18 13:02 | XMS_ITS | Continuity of Care Document ---
Author Name Unknown Organization [facility] ter Address [address] [place] [address]- Care Team Providers Care Marketing Communications Associate Name Role Phone Gómez GONZALEZ, Janet Primary Care Physician [phone] Encounter [facility] [place] Date(s): 05/27/22 - 07/06/[address] [address]- Attending Physician: Jayme Littlejohn MD Admitting Physician: Jayme Littlejohn MD Referring Physician: Jayme Littlejohn MD Allergies, Adverse Reactions, Alerts No Known [...] S Outreach Member Role: PCP Address: Address: [address] [place] [address]- Care Team Related Persons Name: DAQUAN BRAGA Address: [place] [address]
--- OUTSIDE RECORDS SUMMARY | 2022-07-18 13:02 | XMS_ITS | Continuity of Care Document ---
Author Name Unknown Organization [facility] Address [address] [facility] [address] [place] [address]- Care Team Providers Care Watershed Manager Name Role Phone Janet Magaña MD Primary Care Physician [phone] Encounter [facility] [place] Date(s): 05/07/22 - 07/06/22 [facility] [address] [facility] [address] [place] [address]- Attending Physician: Jayme Littlejohn MD Admitting Physician: Jayme Littlejohn MD Allergies, Adverse Reactions, [...] Team Personnel Name: Janet Magaña MD Position: [facility] Outreach Member Role: PCP Address: Address: [address] [place] [address]- Care Team Related Persons Name: DAQUAN BRAGA Address: [place] [address]
--- NOTE | 2022-07-18 14:10 | HO.POSTANES ---
Post Anesthesia Evaluation Post Anesthesia Evaluation Vital Signs: Vital Signs Temp Pulse Resp BP Pulse Ox O2 Del Method 07/18/22 08:00 99.4 F 113 H 20 177/85 H 96 Room Air 07/18/22 04:00 99.6 F 116 H 18 170/88 H 96 Room Air Anesthesia: Nerve Block and General Mental Status: Awake Pain Control: Satisfactory Nausea/Vomiting: None Hydration: Adequate Anesthesia-Related Issues: No Anes. Related Issues
--- NOTE | 2022-07-18 15:22 | MHC.CM.PN ---
DEMETRA 07/18/22 MALE S/P ROTATOR [facility]IVES WITH [facility] WILL TRANSPORT VAXXED X4
[2022-07-18 16:00] VITALS: BP 157/79; PULSE 109; RESP 18; TEMP 37.6; O2SAT 96
[2022-07-18 16:29] LABS: Glucose, Whole Blood 128 mg/dL (60-115)
[2022-07-18 19:49] VITALS: PULSE 109; RESP 18; TEMP 37.9; O2SAT 96
[2022-07-18 20:19] VITALS: BP 183/104; PULSE 103
--- NOTE | 2022-07-18 20:24 | PC.NURSE ---
BP elevated 183/104 pule 103,temp 100.3 ,medicated with Roxicodone for # 4 surgical pain,Dr. Christine notified
[2022-07-18 21:41] LABS: Glucose, Whole Blood 120 mg/dL (60-115)
[2022-07-19] MEDS: 0.9 % Sodium Chloride 1,000 ML 80 ML IVCONT (00:07)
[2022-07-19 01:12] VITALS: BP 168/94; PULSE 100; RESP 20; TEMP 37.7
[2022-07-19 04:00] VITALS: BP 162/82; PULSE 117; RESP 18; TEMP 38.3; O2SAT 99
[2022-07-19] MEDS: Acetaminophen 325 MG TABLET 650 MG PO (04:25)
[2022-07-19] MEDS: oxyCODONE HCl Immed Release 5 MG TABLET PO (04:26)
[2022-07-19 06:05] VITALS: TEMP 37.6
[2022-07-19 06:20] LABS: Basophils Percent Auto 0.2 % (0-2); Eosinophils Absolute Auto 0.1 X10*3/uL (0.0-0.4); Eosinophils Percent Auto 0.8 % (0-4); Hematocrit 35.7 % (42.0-52.0); Hemoglobin 11.9 g/dl (14.0-18.0); Imm Gran Abs Auto 0.06 X10*3/uL (0.00-0.03); Imm Gran Pct Auto 0.4 % (0.0-0.4); Lymphocytes Percent Auto 30.1 % (20-40); MANUAL DIFF FLAG SCAN; Mean Corpuscular HGB Conc 33.3 g/dl (31.0-36.0); Mean Corpuscular Hemoglobin 29.1 pg (27.0-33.0); Mean Corpuscular Volume 87.3 fL (80.0-98.0); Mean Platelet Volume 10.4 fL (9.4-12.4); Monocytes Absolute Auto 2.2 X10*3/uL (0.1-1.2); Monocytes Percent Auto 16.4 % (2-11); Neutrophils Percent Auto 52.1 % (45-73); Red Blood Count 4.09 X10*6/uL (4.60-5.80); Red Cell Distribution Width 13.2 % (11.0-16.0); SCAN SMEAR FLAG 1; White Blood Count 13.4 X10*3/uL (4.8-10.8)
[2022-07-19 06:21] LABS: Platelet Count 97 X10*3/uL (160-400)
[2022-07-19 06:34] LABS: Anion Gap 13 (12-20); Blood Urea Nitrogen 31 mg/dL (9-16); Calcium 8.4 mg/dL (8.4-10.2); Carbon Dioxide 20 mmol/L (22-29); Chloride 107 mmol/L (96-108); Creatinine Clr Calc Pharmacy 22.5; Estimated Glomerular Filt Rate 16; Glucose Fasting 118 mg/dL (60-99); Potassium 5.1 mmol/L (3.3-5.1); Sodium 135 mmol/L (135-145)
[2022-07-19 06:42] LABS: SLIDE REVIEW VERIFIED
[2022-07-19] MEDS: oxyCODONE HCl ER 10 MG TAB.ER.12H PO (07:08)
[2022-07-19] MEDS: Rilpivirine HCL 25 MG TABLET PO (07:08)
[2022-07-19] MEDS: Cholecalciferol (Vitamin D3) 25 MCG TABLET PO (07:09)
[2022-07-19] MEDS: Atorvastatin Calcium 10 MG TABLET PO (07:09)
[2022-07-19] MEDS: Losartan Potassium 50 MG TABLET PO (07:09)
[2022-07-19] MEDS: Dolutegravir Sodium 50 MG TABLET PO (07:09)
[2022-07-19] MEDS: SITagliptin Phosphate 25 MG TABLET PO (07:09)
[2022-07-19] MEDS: Doxazosin Mesylate 2 MG TABLET PO (07:10)
[2022-07-19 08:00] VITALS: BP 168/93; PULSE 112; RESP 20; TEMP 37.4; O2SAT 92
--- NOTE | 2022-07-19 08:08 | PM.DS ---
DS: Providers Provider Date of Service: 07/19/22 Date of admission: 07/17/22 11:24 Primary care physician: Janet Magaña MD Consults: 07/17/22 09:47 Consult to Nephrology Stat Consulting Provider: Ole Lopez Reason for consultation: poor renal fxn prior to shldr sx. Eval renal fxn 07/17/22 13:00 Consult to Hospitalist Routine Consulting Provider: Hospitalist Reason For Exam: Routine medical management/ eval renal function DS: Diagnosis Discharge Diagnosis (1) CKD (chronic kidney disease) stage 4, GFR 15-29 ml/min: Status: Acute DS: Summary Hospital Course Hospital Course: The patient underwent a successful right shoulder rotator cuff repair, they were transferred to PACU and then to the floor to recover due to CrCl/kidney fxn. During their stay, their vitals were stable, afebrile at 99.7. Nephrology was consulted and CrCl improved from 4.04 to 3.87. Prior to discharge, their dressing and incisions were clean dry and intact and the plan was to be discharged home with out patient nephrology followup. Time Spent with Patient Time attestation: Total time managing care of this patient today ____ minutes. Discharge coordination time: Less than 30 minutes Quality: Safe Use of Opioids Does Pt have an Active Cancer Diagnosis on the Problem List?: No Quality: Stroke Does the patient have a stroke diagnosis?: No Physical Exam Vital Signs: Vital Signs: Last Vital Signs Temp 99.7 F 07/19/22 06:05 Pulse 117 H 07/19/22 04:00 Resp 18 07/19/22 04:00 BP 162/82 H 07/19/22 04:00 Pulse Ox 99 07/19/22 04:00 O2 Del Method Room Air 07/19/22 04:00 O2 Flow Rate 5 07/17/22 10:19 BMI result Body Mass Index 34.0 Extrem: Other: incision clean dry and intact. No erythema or effusion. Neurovascularly intact. DS: Data Data Completed and Pending Labs on day of discharge: Laboratory Results - last 24 hr 07/18/22 07/18/22 07/18/22 11:06 16:18 21:38 WBC RBC Hgb Hct MCV MCH MCHC RDW Plt Count MPV Immature Gran % (Auto) Neut % (Auto) Lymph % (Auto) [place] % (Auto) Eos % (Auto) Baso % (Auto) Lymph # (Auto) [place] # (Auto) Eos # (Auto) Baso # (Auto) Abs Immat Gran (auto) Absolute Neuts (auto) Absolute Nucleated RBC Nucleated RBC % (auto) Smear Tech's Comments Sodium Potassium Chloride Carbon Dioxide Anion Gap BUN Creatinine Estim Creat Clear Calc Estimated GFR POC Glucose 165 H 128 H 120 H Fasting Glucose Calcium 07/19/22 07/19/22 06:04 06:04 WBC 13.4 H RBC 4.09 L Hgb 11.9 L Hct 35.7 L MCV 87.3 MCH 29.1 MCHC 33.3 RDW 13.2 Plt Count 97 L MPV 10.4 Immature Gran % (Auto) 0.4 Neut % (Auto) 52.1 Lymph % (Auto) 30.1 [place] % (Auto) 16.4 H Eos % (Auto) 0.8 Baso % (Auto) 0.2 Lymph # (Auto) 4.0 [place] # (Auto) 2.2 H Eos # (Auto) 0.1 Baso # (Auto) 0.0 Abs Immat Gran (auto) 0.06 H Absolute Neuts (auto) 7.0 Absolute Nucleated RBC 0.000 Nucleated RBC % (auto) 0.0 Smear Tech's Comments VERIFIED Sodium 135 Potassium 5.1 Chloride 107 Carbon Dioxide 20 L Anion Gap 13 BUN 31 H Creatinine 3.87 H Estim Creat Clear Calc 22.5 Estimated GFR 16 POC Glucose Fasting Glucose 118 H Calcium 8.4 Discharge Plan Discharge Anticipated Discharge Date/Time: 07/19/22 08:07 Patient Disposition: Home, Self-Care Discharge Diagnosis: s/p rt shldr ARCR Kidney disease Ref[place]: [place] [facility] [place] 1 Week (07/30/22 11:00 Physical Therapy ) Shyann Slaughter PA-C [Physician Burglar Alarm Inspector] - 1 Week (07/29/22 12:30 [facility] [place] [facility] Shyann Slaughter PA-C) Janet Magaña MD [Primary Care Provider] - 1 Week Discharge Medications: New oxycodone 5 mg Tablet 5 mg PO Q4H PRN (Reason: Pain, Moderate (Pain Scale 4-6) 7 Days Qty: 42 0RF Rx Instructions: Partial Fill upon patient request. Continued acetaminophen 500 mg Capsule 1,000 mg PO Q6H PRN (Reason: Pain) cholecalciferol (vitamin D3) [Vitamin D3] 25 mcg (1,000 unit) Capsule 25 mcg PO DAILY omega 4-srm-ots-fish oil [Fish Oil] 1,000 mg (120 mg-180 mg) Capsule 1 cap PO DAILY atorvastatin 10 mg tablet 10 mg PO DAILY allopurinol 100 mg tablet 50 mg PO MOTH Juluca 50-25 mg tablet 1 tab PO DAILY Januvia 25 mg tablet 25 mg PO DAILY ergocalciferol (vitamin D2) 1,250 mcg (50,000 unit) capsule 1,250 mcg PO CALDERON doxazosin 2 mg tablet 2 mg PO DAILY losartan 50 mg tablet 50 mg PO DAILY Discharge Orders: Discharge Order (Routine); Ordered 07/19/22 Ordered By: Shyann Slaughter Diet: Regular diet Activity on Discharge: Sling Stand Alone Forms: Patient Portal Discharge page Care Plan Goals: recover from rt shoulder rotator cuff repair Health Concerns: Renal fxn Plan of Treatment: Wear sling at all times-OK to remove for pendulum exercises throughout the day No lifting-OK to move arm at elbow and wrist Do not bathe or shower--OK to remove bandage after day 3, cover with bandaids. [place] [facility] [place] with any questions or concerns. Follow up with orthopedics in 7-10 days post op FOLLOWUP WITH DR. FORD OUTPATIENT NEPHROLOGY Assessment: Stable for d/c
[2022-07-19 08:14] LABS: Glucose, Whole Blood 118 mg/dL (60-115)
--- NOTE | 2022-07-19 08:26 | P.PNIM_ITS ---
Subjective Subjective Date of Service: 07/19/22 Physical Exam Vital Signs: Vital Signs: Last Vital Signs Temp 99.4 F 07/19/22 08:00 Pulse 112 H 07/19/22 08:00 Resp 20 07/19/22 08:00 BP 168/93 H 07/19/22 08:00 Pulse Ox 92 07/19/22 08:00 O2 Del Method Room Air 07/19/22 08:00 O2 Flow Rate 5 07/17/22 10:19 BMI result Body Mass Index 34.0 Objective Data Active Medications Acetaminophen (Acetaminophen 325 Mg Tablet) 650 mg PO Q6H PRN PRN Reason: Pain Last Admin: 07/19/22 04:25 Dose: 650 mg Documented By: ASHU Allopurinol (Allopurinol 100 Mg Tablet) 50 mg PO MOTH [facility] Last Admin: 07/18/22 09:02 Dose: 50 mg Documented By: KEO Atorvastatin Calcium (Atorvastatin Calcium 10 Mg Tablet) 10 mg PO DAILY [facility] Last Admin: 07/19/22 07:09 Dose: 10 mg Documented By: ASHU Dolutegravir Sodium (Dolutegravir Sodium 50 Mg Tablet) 50 mg PO DAILY [facility] Last Admin: 07/19/22 07:09 Dose: 50 mg Documented By: ASHU Doxazosin Mesylate (Doxazosin Mesylate 2 Mg Tablet) 2 mg PO DAILY [facility]; Protocol Last Admin: 07/19/22 07:10 Dose: 2 mg Documented By: ASHU Ergocalciferol (Ergocalciferol (Vitamin D2) 1,250 Mcg Capsule) 1,250 mcg PO Cat@0900 [facility] Hydromorphone HCl (Hydromorphone Hcl 0.5 Mg/0.5 Ml Syringe) 0.25 mg IVPUSH Q4H PRN; Protocol PRN Reason: Pain, Severe (Pain Scale 7-10) Last Admin: 07/18/22 04:06 Dose: 0.25 mg Documented By: NOÉ Insulin Human Lispro (Insulin Lispro 100 Unit/Ml 3 Ml Vial) 0 unit SUBCUT QIDACHS [facility]; Protocol Last Admin: 07/19/22 08:17 Dose: Not Given Documented By: KEO Non-Admin Reason: No Insulin Coverage Losartan Potassium (Losartan Potassium 50 Mg Tablet) 50 mg PO DAILY [facility]; Protocol Last Admin: 07/19/22 07:09 Dose: 50 mg Documented By: ASHU Oxycodone HCl (Oxycodone Hcl Immed Release 5 Mg Tablet) 5 mg PO Q4H PRN PRN Reason: Pain, Moderate (Pain Scale 4-6 Last Admin: 07/19/22 04:26 Dose: 5 mg Documented By: ASHU Oxycodone HCl (Oxycodone Hcl Er 10 Mg Tab.Er.12h) 10 mg PO BID [facility] Last Admin: 07/19/22 07:08 Dose: 10 mg Documented By: ASHU Rilpivirine (Rilpivirine Hcl 25 Mg Tablet) 25 mg PO DAILY [facility] Last Admin: 07/19/22 07:08 Dose: 25 mg Documented By: ASHU Sitagliptin Phosphate (Sitagliptin Phosphate 25 Mg Tablet) 25 mg PO DAILY [facility] Last Admin: 07/19/22 07:09 Dose: 25 mg Documented By: ASHU Sodium Chloride (0.9 % Sodium Chloride Flush 3 Ml Syringe) 3 ml IVFLUSH QSHIFT [facility] Last Admin: 07/19/22 07:09 Dose: Not Given Documented By: ASHU Non-Admin Reason: IV Running Vitamin D (Cholecalciferol (Vitamin D3) 25 Mcg Tablet) 25 mcg PO DAILY [facility] Last Admin: 07/19/22 07:09 Dose: 25 mcg Documented By: ASHU Labs 07/19/22 06:04 07/19/22 06:04 Labs: Laboratory Results - last 24 hr 07/18/22 07/18/22 07/18/22 11:06 16:18 21:38 MCV MCH MCHC RDW Plt Count MPV Immature Gran % (Auto) Neut % (Auto) Lymph % (Auto) [place] % (Auto) Eos % (Auto) Baso % (Auto) Lymph # (Auto) [place] # (Auto) Eos # (Auto) Baso # (Auto) Abs Immat Gran (auto) Absolute Neuts (auto) Absolute Nucleated RBC Nucleated RBC % (auto) Smear Tech's Comments Anion Gap Estim Creat Clear Calc Estimated GFR POC Glucose 165 H 128 H 120 H Fasting Glucose Calcium 07/19/22 07/19/22 07/19/22 06:04 06:04 08:09 MCV 87.3 MCH 29.1 MCHC 33.3 RDW 13.2 Plt Count 97 L MPV 10.4 Immature Gran % (Auto) 0.4 Neut % (Auto) 52.1 Lymph % (Auto) 30.1 [place] % (Auto) 16.4 H Eos % (Auto) 0.8 Baso % (Auto) 0.2 Lymph # (Auto) 4.0 [place] # (Auto) 2.2 H Eos # (Auto) 0.1 Baso # (Auto) 0.0 Abs Immat Gran (auto) 0.06 H Absolute Neuts (auto) 7.0 Absolute Nucleated RBC 0.000 Nucleated RBC % (auto) 0.0 Smear Tech's Comments VERIFIED Anion Gap 13 Estim Creat Clear Calc 22.5 Estimated GFR 16 POC Glucose 118 H Fasting Glucose 118 H Calcium 8.4 Assessment and Plan (1) CKD (chronic kidney disease) stage 4, GFR 15-29 ml/min: Status: Acute (2) PAULINA (acute kidney injury): Status: Acute Plan 62 male with HTN, DM, HIV, Hep C,? HLD, CKD 3 . He had? Right shoulder RTC repair today and after procedure was supposed to go home yet routine lab were checked and he was noted to have Cr of 4.46 so he's been observed overnight. The re are no acute issues. His last know Creatine was 2. 83 in? in July 2020. He has no trouble voiding * Stage 4 Severe CKD (GFR = 15-29 mL/min), with mild PAULINA, improved with fluid. Outpatient follow up with PCP and Nephrology * HTN--resume home meds * HIV-continue home meds (Losartan) * Diabetes--SSI, check glucse * HLD--statin (lipitor) * Ok to dc outpatient follow up Time Spent With Patient Time: Total time managing care of this patient today ____ minutes. Quality Stroke Does the patient have a stroke diagnosis?: No VTE Prior VTE?: No VTE Risk Level:: Surgical - moderate VTE Device Contraindication: N/A - Device Ordered VTE Drug Contraindication: Treatment Not Indicated
--- NOTE | 2022-07-19 09:10 | MHC.CM.PN ---
pt dcd home no skilled servceis ordered by
--- NOTE | 2022-07-26 16:13 | P.OP_ITS ---
Operative Note Operative Note Date of Service: 07/17/22 Narrative: Date of Service: 07/17/22 Pre-op diagnosis: right RTC tear Post-op diagnosis: same Procedure: Right RTC repair Implants: Yates [employer] Nephew double loaded medial row anchors Yates [employer]hew knotless lateral anchors x 2 Surgeon: Isaías Cerna MD Anesthesia: GETA and regional Was an Mainframe Systems Administrator used for this Procedure?: Yes Mainframe Systems Administrator: Shyann Slaughter Estimated blood loss (mL): 20 IV fluids (mL): 50 Pathology: none sent Condition: stable Disposition: PACU Procedure in detail:? Patient was brought to the operating room and placed the the beach chair position. All bony prominences were well padded and the limb was prepped and draped in standard sterile fashion. A time out was called to identify proper site, proper procedure and proper surgeon. IV antibiotics per weight were administered. I began by making a posterolateral stab incision with a 15 blade. A blunt trochar was placed into the glenohumeral joint and I insufflated the joint with saline and a 30 degree arthroscope was placed. I established an outside- in anterior portal just distal to the biceps tendon. I then began my inspection of the glenohumeral joint. There was an intact biceps and biceps- labral anchor with mild degenerative tearing of the labrum circumferentially with G1 change at the inferior glenoid without associated humeral head changes. There was a full thickness undersurface RTC tear. The subcapularis was intact I debrided the loose cartilage of the glenoid and the degenerative labral tearing. I then removed the trochar and entered the subacromial space. A direct lateral portal was then established and I performed a bursectomy. The cuff was then examined. There was a retracted tear of the supra and infraspinatus with retraction.The tear was mobile to the bare area. I released the suscapularis an terioly and superiorly.? I then placed two medial row double loaded anchors and then brought the suture tape through the medial cuff. I added two looped sutures at the anterior and posterior most aspect of the tear. I then debrided the bare area down to bleeding bone and, using a cross bridge configuration, brought the limbs to each of 2 lateral anchors. This re-approximated the cuff anatomy near anatomically. I was satisfied with the repair and there was no tension on the cuff. I then performed a 5 mm subacromial decompression. Once I was satisfied with the repair final images were captured and I removed all instrumentation. Portals were closed with nylon. Patient was placed in an abduction sling, extubated and brought to the recovery room in stable condition. There were no known complications. Large RTC rehab protocol
== END 2022-07-19 09:34 | disposition home or self-care (01) | DRG 317 ==
LOC: HO.S3 22:02 → HO.SSSA 07-18 13:00
PROVIDERS: Nurse Practitioner; Physician Assistant; Admitting Provider Orthopaedic Surgery; PCP Family Medicine; Visit Provider Orthopaedic Surgery
PROC: 0LM14ZZ Reattachment of Right Shoulder Tendon, Percutaneous Endoscopic Approach (ICD-10-PCS; principal; 2022-07-17 07:30)
DX: M75.101 Unspecified rotator cuff tear or rupture of right shoulder, not specified as traumatic (principal); E11.22 Type 2 diabetes mellitus with diabetic chronic kidney disease; N17.9 Acute kidney failure, unspecified; N18.4 Chronic kidney disease, stage 4 (severe); E87.5 Hyperkalemia; E78.5 Hyperlipidemia, unspecified; I12.9 Hypertensive chronic kidney disease with stage 1 through stage 4 chronic kidney disease, or unspecified chronic kidney disease; Z21 Asymptomatic human immunodeficiency virus [HIV] infection status; Z20.822 Contact with and (suspected) exposure to COVID-19; Z86.19 Personal history of other infectious and parasitic diseases; Z87.891 Personal history of nicotine dependence; Z79.899 Other long term (current) drug therapy
CPT/HCPCS: 36415; 80048; 82947; 85025; 85027; 87635; 93005; C1713; J0131; J0171; J0690; J1170; J2250; J2370; J2405; J3010

== ENCOUNTER → 2022-07-22 10:44 | Outpatient (BNVA) | payer BC, SELFPAY | PROVIDERS: PCP Family Medicine; Visit Provider Physician Assistant | DX: Z13.89 Encounter for screening for other disorder (principal) ==

== ENCOUNTER 2022-07-30 06:05 | Emergency (ER) | payer BC, SELFPAY ==
--- NOTE | ~2022-07-30 | XR_ITS ---
EXAMINATION: XR FOOT, RIGHT CLINICAL INFORMATION: Swelling of right foot COMPARISON: None available. TECHNIQUE: 3 views of the right foot. FINDINGS: The three views of the right foot are obtained without weightbearing. There is likely a chronic pes planus and hindfoot valgus deformity. Although a mild dorsal talar beak is noted, there is no visible tarsal coalition. Bones have normal alignment. Joint spaces are maintained. No fracture or subluxation. No erosions or periostitis. Peripheral vascular calcifications are noted, including posterior tibial artery and dorsalis pedis. There appears to be nonspecific, mild soft tissue swelling of the medial hindfoot/midfoot region. XR/XR foot RT min 3V IMPRESSION: * No acute osseous injury in the right foot. * No evidence of osteomyelitis. * There appears to be mild soft tissue swelling of the medial hindfoot/midfoot region. Query if this corresponds to the clinical site of swelling. This is a nonspecific observation. These radiographs would not be able to exclude any tendon abnormality.
[2022-07-30 06:15] VITALS: BMI 32.2
[2022-07-30 06:17] VITALS: BP 114/77; PULSE 87; RESP 18; TEMP 36.7; O2SAT 97
[2022-07-30 06:30] LABS: Glucose, Whole Blood 125 mg/dL (60-115)
[2022-07-30 06:30] LABS: MANUAL DIFF FLAG NO
[2022-07-30 06:31] LABS: Basophils Percent Auto 0.4 % (0-2); Eosinophils Absolute Auto 0.3 X10*3/uL (0.0-0.4); Eosinophils Percent Auto 3.1 % (0-4); Hematocrit 35.4 % (42.0-52.0); Hemoglobin 11.8 g/dl (14.0-18.0); Imm Gran Abs Auto 0.05 X10*3/uL (0.00-0.03); Imm Gran Pct Auto 0.5 % (0.0-0.4); Lymphocytes Absolute Auto 3.4 X10*3/uL (1.2-4.9); Lymphocytes Percent Auto 33.1 % (20-40); Mean Corpuscular HGB Conc 33.3 g/dl (31.0-36.0); Mean Corpuscular Hemoglobin 29.1 pg (27.0-33.0); Mean Corpuscular Volume 87.2 fL (80.0-98.0); Mean Platelet Volume 9.7 fL (9.4-12.4); Monocytes Absolute Auto 1.5 X10*3/uL (0.1-1.2); Monocytes Percent Auto 14.2 % (2-11); Neutrophils Percent Auto 48.7 % (45-73); Platelet Count 205 X10*3/uL (160-400); Red Blood Count 4.06 X10*6/uL (4.60-5.80); Red Cell Distribution Width 13.1 % (11.0-16.0); White Blood Count 10.2 X10*3/uL (4.8-10.8)
[2022-07-30 06:48] LABS: Alanine Aminotransferase 14 U/L (0-40); Albumin Level 3.5 g/dL (3.5-5.0); Alkaline Phosphatase 74 U/L (39-117); Anion Gap 14 (12-20); Aspartate Amino Transferase 25 U/L (5-37); Bilirubin Total 0.5 mg/dL (0.0-1.0); Blood Urea Nitrogen 54 mg/dL (9-16); Carbon Dioxide 20 mmol/L (22-29); Chloride 107 mmol/L (96-108); Creatinine Clr Calc Pharmacy 17.4; Estimated Glomerular Filt Rate 12; Glucose Random 158 mg/dL (60-115); Potassium 5.3 mmol/L (3.3-5.1); Sodium 136 mmol/L (135-145); Total Protein 6.3 g/dL (6.5-8.0); Uric Acid 8.7 mg/dL (3.4-7.0)
--- NOTE | 2022-07-30 07:32 | ED.GENADULT ---
HPI - General Adult General Chief complaint: Extremity Injury, Lower Stated complaint: Foot Swelling/Pain Time Seen by Provider: 07/30/22 07:30 Source: patient Limitations: no limitations History of Present Illness HPI narrative: Patient with increased pain with walking, no trauma, no redness, no fever, no swelling Onset (ago): month(s) Severity: mild Quality: burning Pain Consistency: intermittent Exacerbating factors: other (walking on foot) Associated symptoms: denies other symptoms Related Data Home Medications Medication Instructions Recorded Confirmed dolutegravir 50 mg-rilpivirine 25 1 tab PO DAILY 02/14/22 05/30/22 mg tablet (Juluca) doxazosin 2 mg tablet 2 mg PO DAILY 02/14/22 05/30/22 ergocalciferol (vitamin D2) 1,250 1,250 mcg PO CALDERON 02/14/22 07/17/22 mcg (50,000 unit) capsule losartan 50 mg tablet 50 mg PO DAILY 02/14/22 05/30/22 sitagliptin phosphate 25 mg tablet 25 mg PO DAILY 02/14/22 05/30/22 (Januvia) acetaminophen 500 mg capsule 1,000 mg PO Q6H PRN Pain 05/30/22 07/17/22 cholecalciferol (vitamin D3) 25 25 mcg PO DAILY 05/30/22 05/30/22 mcg (1,000 unit) capsule (Vitamin D3) omega 3-ulc-xee-fish oil 1,000 mg 1 cap PO DAILY 05/30/22 05/30/22 (120 mg-180 mg) capsule (Fish Oil) allopurinol 100 mg tablet 50 mg PO MOTH 07/17/22 07/17/22 atorvastatin 10 mg tablet 10 mg PO DAILY 07/17/22 07/17/22 Previous Rx's Medication Instructions Recorded docusate sodium 100 mg capsule 200 mg PO DAILY #180 caps 07/24/22 oxycodone 5 mg tablet 5 mg PO Q6H PRN Pain, Moderate 07/25/22 (Pain Scale 4-6 7 days #28 tabs Allergies Allergy/AdvReac Type Severity Reaction Status Date / Time No Known Allergies Allergy Verified 07/22/22 10:46 [No Known Allergies*] Review of Systems Review of Systems: Yes all other systems are reviewed and are negative Musculoskeletal: Comments: foot pain PMFSH Past Medical History Medical History Chronic kidney disease (CKD) Diabetes Hand pain, right HIV (human immunodeficiency virus infection) Hx of hepatitis C Hypertension Surgical History Hx of circumcision Hx of colonoscopy Social History Social History Household Members: Spouse Housing: House Are you a primary care transition manager to a significant other at home: No Do you presently have visiting nurse or other home services: No Patient Tobacco Use Status: Former Tobacco user Quit Date: 2012 Tobacco use type: Cigarette Smoked in Last 30 Days: No e-Cigarette/Vaping Use: Never Used Second Hand Smoke Exposure: No Use of substances other than those prescribed or required for medical reasons: No Advance Directives: No Advance Directives Information Provided: Yes service: No Current occupational status: employed 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, 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 Physical Exam ED Vital Signs: Vital Signs - 24 hr 07/30/22 06:17 07/30/22 08:02 Temperature 98.1 F 97.5 F Pulse Rate 87 84 Respiratory Rate 18 18 Blood Pressure 114/77 130/80 Pulse Oximetry 97 98 Oxygen Delivery Method Room Air Room Air BMI result Body Mass Index 32.2 Const General: healthy appearing Nutritional Appearance: average body habitus Orientation/consciousness: oriented to person and patient oriented x3 Limitations: no limitations HENMT Head: Yes normal to inspection Ears: external ears normal General nose exam: Normal external nose present Mouth: Normal oral and palatal mucosa present and oropharynx normal Throat: Yes posterior oropharynx normal Eyes General: appearance normal, both eyes and all related structures Neck Neck: Yes normal visual inspection Chest Chest palpation & inspection: normal inspection of the chest Resp Auscultation: clear to auscultation bilaterally Cardio Jugular venous distension: no JVD Rate: regular rate Rhythm: regular rhythm Heart sounds: S1 normal heart sound present and S2 normal heart sound present GI Inspection: Yes normal to inspection Palpation (GI): Soft to palpation, nontender and No hepatosplenomegaly present Auscultation: normal bowel sounds General: Yes no CVA tenderness Back/Spine/Pelvis Back: no CVA tenderness Skin General skin exam: no rashes or lesions noted Neuro General: oriented to person and patient oriented x3 Cranial nerves: Yes CN's II-XII intact bilaterally Motor exam (neuro): 5/5 motor strength present throughout Extrem Other: no redness, no swelling, good pulses, pain to plantar fascia Psych Appearance: grossly normal Course Reevaluation(s) Reevaluation #1: Patient with a combination of plantar fascitis and diabetic neuropathy, no evidence of infection, or vascular insufficiency. His renal function is worse Time: 08:21 Medical Decision Making Differential Diagnosis Differential Diagnoses: The differential diagnosis associated with the presentation includes (Plantar fascitis, diabetic neuropathy, vascular insufficiency, kidney failure were all considered) Admission/Observation Consideration of admission/observation: Escalation of care including admission/observation considered (In a patient with worsening renal function and leg pain, admission was considered) Lab Data MDM Lab Attestation statement: I reviewed the patient's lab results. (worsening renal function was noted) 07/30/22 06:25 07/30/22 06:24 Labs: Lab Results 07/30/22 07/30/22 07/30/22 Range/Units 06:14 06:24 06:25 WBC 10.2 (4.8-10.8) X10*3/uL RBC 4.06 L (4.60-5.80) X10*6/uL Hgb 11.8 L (14.0-18.0) g/dl Hct 35.4 L (42.0-52.0) % MCV 87.2 (80.0-98.0) fL MCH 29.1 (27.0-33.0) pg MCHC 33.3 (31.0-36.0) g/dl RDW 13.1 (11.0-16.0) % Plt Count 205 D (160-400) X10*3/uL MPV 9.7 (9.4-12.4) fL Immature Gran % (Auto) 0.5 H (0.0-0.4) % Neut % (Auto) 48.7 (45-73) % Lymph % (Auto) 33.1 (20-40) % Banner % (Auto) 14.2 H (2-11) % Eos % (Auto) 3.1 (0-4) % Baso % (Auto) 0.4 (0-2) % Lymph # (Auto) 3.4 (1.2-4.9) X10*3/uL Banner # (Auto) 1.5 H (0.1-1.2) X10*3/uL Eos # (Auto) 0.3 (0.0-0.4) X10*3/uL Baso # (Auto) 0.0 (0.0-0.2) X10*3/uL Abs Immat Gran (auto) 0.05 H (0.00-0.03) X10*3/uL Absolute Neuts (auto) 5.0 (2.0-8.3) x10*3/uL Absolute Nucleated RBC 0.000 (0.0-0.012) X10*3/uL Nucleated RBC % (auto) 0.0 (0.0-0.2) /100WBC Sodium 136 (135-145) mmol/L Potassium 5.3 H (3.3-5.1) mmol/L Chloride 107 (96-108) mmol/L Carbon Dioxide 20 L (22-29) mmol/L Anion Gap 14 (12-20) BUN 54 H (9-16) mg/dL Creatinine 4.86 H* (0.5-1.4) mg/dL Estim Creat Clear Calc 17.4 Estimated GFR 12 POC Glucose 125 H (60-115) mg/dL Random Glucose 158 H (60-115) mg/dL Uric Acid 8.7 H (3.4-7.0) mg/dL Calcium 9.0 D (8.4-10.2) mg/dL Total Bilirubin 0.5 (0.0-1.0) mg/dL AST 25 (5-37) U/L ALT 14 (0-40) U/L Alkaline Phosphatase 74 (39-117) U/L Total Protein 6.3 L (6.5-8.0) g/dL Albumin 3.5 (3.5-5.0) g/dL Independent Interpretation I performed an independent interpretation of an: Plain X-Ray (osteopenia and osteoarthritis of foot) Chronic Conditions Patient?s care impacted by: Diabetes, Hypertension and Other (renal failure) Discharge Plan Discharge Clinical Impression: Plantar fasciitis, Diabetic neuropathy, Renal failure Patient Disposition: Home, Self-Care Instructions: Plantar Fasciitis (ED), Plantar Fasciitis Exercises (ED), Diabetic Peripheral Neuropathy (ED), Impaired Kidney Function (ED) Additional Instructions: You may take tylenol for pain Prescriptions: No Action docusate sodium 100 mg capsule 200 mg PO DAILY Qty: 180 0RF oxycodone 5 mg tablet 5 mg PO Q6H PRN (Reason: Pain, Moderate (Pain Scale 4-6) 7 Days Qty: 28 0RF Rx Instructions: Partial Fill upon patient request. acetaminophen 500 mg Capsule 1,000 mg PO Q6H PRN (Reason: Pain) cholecalciferol (vitamin D3) [Vitamin D3] 25 mcg (1,000 unit) Capsule 25 mcg PO DAILY omega 2-ssj-umg-fish oil [Fish Oil] 1,000 mg (120 mg-180 mg) Capsule 1 cap PO DAILY atorvastatin 10 mg tablet 10 mg PO DAILY allopurinol 100 mg tablet 50 mg PO MOTH Juluca 50-25 mg tablet 1 tab PO DAILY Januvia 25 mg tablet 25 mg PO DAILY ergocalciferol (vitamin D2) 1,250 mcg (50,000 unit) capsule 1,250 mcg PO CALDERON doxazosin 2 mg tablet 2 mg PO DAILY losartan 50 mg tablet 50 mg PO DAILY Referrals: Janet Magaña MD [Primary Care Provider] - 3 days
[2022-07-30 08:02] VITALS: BP 130/80; PULSE 84; RESP 18; TEMP 36.4; O2SAT 98
[2022-07-30] MEDS: Acetaminophen 325 MG TABLET 650 MG PO (08:42)
== END 2022-07-30 08:44 | disposition home or self-care (01) ==
PROVIDERS: Emergency Provider Emergency Medicine; PCP Family Medicine
DX: M72.2 Plantar fascial fibromatosis (principal); R60.0 Localized edema; E11.40 Type 2 diabetes mellitus with diabetic neuropathy, unspecified; M79.671 Pain in right foot; N19 Unspecified kidney failure; Z79.899 Other long term (current) drug therapy; Z87.891 Personal history of nicotine dependence
CPT/HCPCS: 36415; 73630; 80053; 82947; 84550; 85025; 99283; 99284

== ENCOUNTER → 2022-08-19 13:09 | Outpatient (BNVA) | payer BC, SELFPAY | PROVIDERS: PCP Family Medicine; Visit Provider Physician Assistant | DX: Z13.89 Encounter for screening for other disorder (principal) ==

== ENCOUNTER → 2022-09-25 11:23 | Outpatient (BNVA) | payer BC, SELFPAY | PROVIDERS: PCP Family Medicine; Referring Provider Family Medicine; Visit Provider Surgery ==

== ENCOUNTER → 2022-09-30 11:06 | Outpatient (BNVA) | payer BC, SELFPAY | PROVIDERS: PCP Family Medicine; Visit Provider Physician Assistant ==

== ENCOUNTER 2022-10-30 14:00 | Outpatient (RCR) | payer BC, SELFPAY ==
--- NOTE | 2022-11-19 07:41 | MHC.PT.DC ---
[facility] [place] Office [place] Office [place] Office [address] Steph Wadsworth [address] [phone] F: [phone] F: [phone] F: [phone] F: [phone] Physical Therapy Discharge Report Diagnosis: S/P R RTCR Date of Surgery: 07/18/22 Date of Evaluation: 07/23/22 Date of Discharge: 11/19/22 Treatments to Date: 20 Cancellations to Date: 0 No Shows to Date: 0 Discharge Status: Achieved Goals Improved Function Independent with HEP Discharge Summary: The patient reported he only consistently has discomfort with sleeping and certain weather conditions. He does continue to demonstrate some upper trapezius compensation with active range above 100* but has a comprehensive home exercise program to continue working on his mobility and strength. He is discharged from this physical therapy plan of care to his home exercise program. Electronically signed by: ABDIEL RAYGOZA PT DPT Please sign and return to therapist. Thank you for your referral.
== END 2022-11-19 07:40 | disposition home or self-care (01) ==
LOC: HO.PT 14:00
PROVIDERS: PCP Family Medicine; Visit Provider Orthopaedic Surgery
DX: Z98.890 Other specified postprocedural states (principal)
CPT/HCPCS: 97110; 97140; 97161; 97530

== ENCOUNTER 2022-11-28 13:59 | Outpatient (AMB) | payer SELFPAY ==
--- NOTE | 2022-11-28 14:03 | MHC.OFFVIS ---
Intake Intake Visit Reasons: OV - RT RTC Repair 07/17/22 NE Intake Note: Joselo is a 62 year old right hand dominant male who presents today for a follow up appointment his right RTC repair, 07/17/22. Patient reports no pain or discomfort. He states he finish PT and it helped him with his ROM and strength. Having concerns of left ankle pain. Allergies No Known Allergies [No Known Allergies*] Allergy (Verified 11/28/22 14:07) HPI OV - RT RTC Repair 07/17/22 NE HPI Details 62-year-old right hand dominant male who presents in the office today 4 months status post right rotator cuff repair, which was performed on 07/17/[address] Cerna. The patient reports no pain or discomfort while in the office today. Patient confirms completion of physical therapy, with improvement of ROM and strengthening. Patient reports having left ankle pain. [facility] Medical History Chronic kidney disease (CKD) Diabetes Encounter for screening colonoscopy Hand pain, right HIV (human immunodeficiency virus infection) Hx of hepatitis C Hypertension Surgical History Hx of circumcision Hx of colonoscopy Social History Household Members: Spouse Housing: House Are you a primary school child care attendant to a significant other at home: No Do you presently have visiting nurse or other home services: No Patient Tobacco Use Status: Former Tobacco user Quit Date: 2012 Tobacco use type: Cigarette e-Cigarette/Vaping Use: Never Used Second Hand Smoke Exposure: No service: No Current occupational status: employed 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 55 strength with empty can. Negative drop arm. NVI. Assessment & Plan Assessment & Plan (1) S/P right rotator cuff repair: Comment: Right rotator cuff repair 07/17/2022 NE Code(s): Z98.890 - Other specified postprocedural states Plan Mr. Santana is a 62-year-old right hand dominant male who presents in the office today 4 months status post right rotator cuff repair, which was performed on 07/17/[address] Cerna. The patient reports no pain or discomfort while in the office today. Patient confirms completion of physical therapy, with improvement of ROM and strengthening. Patient reports having left ankle pain. The patient has completed physical therapy and has met all goals. No additional treatment is required. Follow up will be PRN, or sooner if needed. The patient will be referred to Rhematology for further evaluation and treatment of a gout flare up in his left foot. He has a history of gout in his hand. Orders: Referrals Rheumatology Referral M10.9 - Gout, unspecified Patient Instructions: Scribed for Shyann Slaughter PA-C by Brii Crouch medical technologist prn, on 11/28/2022 at 2:01 pm, EST. Coding Level of Care Code Est Pt Level 3 (66935) Diagnoses S/P right rotator cuff repair Z98.890
== END 2022-11-28 14:19 | disposition home or self-care (01) ==
PROVIDERS: PCP Family Medicine; Visit Provider Physician Assistant
DX: Z47.89 Encounter for other orthopedic aftercare (principal); M75.101 Unspecified rotator cuff tear or rupture of right shoulder, not specified as traumatic; M12.811 Other specific arthropathies, not elsewhere classified, right shoulder
CPT/HCPCS: 99213

== ENCOUNTER → 2022-11-28 13:59 | Outpatient (BNVA) | payer BC, SELFPAY | PROVIDERS: PCP Family Medicine; Visit Provider Physician Assistant ==

== ENCOUNTER 2022-12-16 11:46 | Outpatient (REF) | payer OTHER, SELFPAY ==
[2022-12-16 13:02] LABS: MANUAL DIFF FLAG NO
[2022-12-16 13:15] LABS: Basophils Absolute Auto 0.1 X10*3/uL (0.0-0.2); Basophils Percent Auto 0.6 % (0-2); Eosinophils Absolute Auto 0.3 X10*3/uL (0.0-0.4); Eosinophils Percent Auto 3.5 % (0-4); Hematocrit 37.5 % (42.0-52.0); Hemoglobin 12.2 g/dl (14.0-18.0); Imm Gran Abs Auto 0.03 X10*3/uL (0.00-0.03); Imm Gran Pct Auto 0.4 % (0.0-0.4); Lymphocytes Absolute Auto 3.7 X10*3/uL (1.2-4.9); Lymphocytes Percent Auto 42.7 % (20-40); Mean Corpuscular HGB Conc 32.5 g/dl (31.0-36.0); Mean Corpuscular Hemoglobin 29.2 pg (27.0-33.0); Mean Corpuscular Volume 89.7 fL (80.0-98.0); Mean Platelet Volume 11.3 fL (9.4-12.4); Monocytes Absolute Auto 0.9 X10*3/uL (0.1-1.2); Monocytes Percent Auto 10.9 % (2-11); Neutrophils Absolute Auto 3.6 x10*3/uL (2.0-8.3); Neutrophils Percent Auto 41.9 % (45-73); Platelet Count 119 X10*3/uL (160-400); Red Blood Count 4.18 X10*6/uL (4.60-5.80); Red Cell Distribution Width 13.2 % (11.0-16.0); White Blood Count 8.6 X10*3/uL (4.8-10.8)
[2022-12-16 14:19] LABS: Alanine Aminotransferase 10 U/L (0-40); Albumin Level 3.5 g/dL (3.5-5.0); Alkaline Phosphatase 73 U/L (39-117); Anion Gap 12 (12-20); Aspartate Amino Transferase 18 U/L (5-37); Bilirubin Total 0.3 mg/dL (0.0-1.0); Blood Urea Nitrogen 58 mg/dL (9-16); Calcium 8.9 mg/dL (8.4-10.2); Carbon Dioxide 19 mmol/L (22-29); Chloride 114 mmol/L (96-108); Estimated Glomerular Filt Rate 9; Glucose Random 119 mg/dL (60-115); Potassium 5.8 mmol/L (3.3-5.1); Sodium 139 mmol/L (135-145); Total Protein 6.7 g/dL (6.5-8.0)
[2022-12-17 14:04] LABS: HIV RNA PCR Qn Copies 33 copies/mL (NOT DETECTED); HIV RNA PCR Qn Log Copies 1.52 (NOT DETECTED)
== END 2022-12-16 11:47 | disposition home or self-care (01) ==
LOC: HO.HHCL 11:46
PROVIDERS: Visit Provider Family Medicine
DX: B20 Human immunodeficiency virus [HIV] disease (principal)
CPT/HCPCS: 36415; 80053; 85025; 87536

== ENCOUNTER 2023-05-08 11:57 | Outpatient (REF) | payer OTHER, SELFPAY ==
[2023-05-08 13:20] LABS: MANUAL DIFF FLAG NO
[2023-05-08 13:34] LABS: Basophils Percent Auto 0.5 % (0-2); Eosinophils Absolute Auto 0.2 X10*3/uL (0.0-0.4); Eosinophils Percent Auto 2.8 % (0-4); Hematocrit 35.8 % (42.0-52.0); Hemoglobin 11.8 g/dl (14.0-18.0); Imm Gran Abs Auto 0.03 X10*3/uL (0.00-0.03); Imm Gran Pct Auto 0.4 % (0.0-0.4); Lymphocytes Absolute Auto 3.4 X10*3/uL (1.2-4.9); Lymphocytes Percent Auto 39.7 % (20-40); Mean Corpuscular Hemoglobin 29.9 pg (27.0-33.0); Mean Corpuscular Volume 90.9 fL (80.0-98.0); Mean Platelet Volume 11.7 fL (9.4-12.4); Monocytes Percent Auto 11.6 % (2-11); Neutrophils Absolute Auto 3.8 x10*3/uL (2.0-8.3); Platelet Count 104 X10*3/uL (160-400); Red Blood Count 3.94 X10*6/uL (4.60-5.80); Red Cell Distribution Width 12.8 % (11.0-16.0); White Blood Count 8.5 X10*3/uL (4.8-10.8)
[2023-05-08 14:02] LABS: Alanine Aminotransferase 10 U/L (0-40); Albumin Level 3.2 g/dL (3.5-5.0); Alkaline Phosphatase 75 U/L (39-117); Anion Gap 13 (12-20); Aspartate Amino Transferase 16 U/L (5-37); Bilirubin Total 0.4 mg/dL (0.0-1.0); Blood Urea Nitrogen 47 mg/dL (9-16); Calcium 8.9 mg/dL (8.4-10.2); Carbon Dioxide 23 mmol/L (22-29); Chloride 110 mmol/L (96-108); Estimated Glomerular Filt Rate 7; Glucose Random 95 mg/dL (60-115); Potassium 4.6 mmol/L (3.3-5.1); Sodium 141 mmol/L (135-145); Total Protein 6.4 g/dL (6.5-8.0)
[2023-05-09 12:04] LABS: Absolute CD3 Count 2436 cells/uL (840-3060); Absolute CD4 Count 821 cells/uL (490-1740); Absolute CD8 Count 1563 cells/uL (180-1170); Absolute Lymphocytes 3686 cells/uL (850-3900); CD4 CD8 Ratio 0.53 (0.86-5.00); Percent CD3 Cells 66 % (57-85); Percent CD4 Cells 22 % (30-61); Percent CD8 Cells 42 % (12-42)
[2023-05-09 13:59] LABS: HCV Log PCR <1.18 NOT DETECTED Log IU/mL (NOT DETECTED); HepC Viral Load <15 NOT DETECTED IU/mL (NOT DETECTED)
[2023-05-09 14:59] LABS: HIV RNA PCR Qn Copies 25 copies/mL (NOT DETECTED)
== END 2023-05-08 11:58 | disposition home or self-care (01) ==
LOC: HO.HHCL 11:57
PROVIDERS: Visit Provider Student in an Organized Health Care Education/Training Program
DX: B20 Human immunodeficiency virus [HIV] disease (principal)
CPT/HCPCS: 36415; 80053; 85025; 86359; 86360; 87522; 87536

== ENCOUNTER 2023-08-08 10:19 | Outpatient (REF) | payer OTHER, SELFPAY ==
[2023-08-08 12:49] LABS: Creatinine Urine 165.94 mg/dL
[2023-08-08 13:07] LABS: Microalbum/Creatinine Ratio Ur 1205.2 ug/mg cr (<30); Microalbumin Urine > 2000.0 mg/L
[2023-08-08 14:16] LABS: Cholesterol 199 mg/dL (<200); HDL Cholesterol 41 mg/dL (>40); LDL Cholesterol Calculated 113 mg/dL (<100); Triglycerides 225 mg/dL (<150)
[2023-08-08 14:35] LABS: Uric Acid 4.3 mg/dL (3.4-7.0)
[2023-08-08 15:18] LABS: Reflex LDLD? No
== END 2023-08-08 10:20 | disposition home or self-care (01) ==
LOC: HO.HHCL 10:19
PROVIDERS: Visit Provider Family Medicine
DX: I12.0 Hypertensive chronic kidney disease with stage 5 chronic kidney disease or end stage renal disease (principal); E11.22 Type 2 diabetes mellitus with diabetic chronic kidney disease; N18.6 End stage renal disease; E78.5 Hyperlipidemia, unspecified; M1A.30X0 Chronic gout due to renal impairment, unspecified site, without tophus (tophi); Z99.2 Dependence on renal dialysis
CPT/HCPCS: 36415; 80061; 82043; 82570; 84550

== ENCOUNTER 2023-08-13 13:44 | Outpatient (REF) | payer OTHER, SELFPAY ==
--- NOTE | ~2023-08-13 | MM_ITS ---
EXAMINATION: BONE DENSITOMETRY CLINICAL INDICATION: Other specified disorders of bone density. COMPARISON: This is the patient's baseline examination. TECHNIQUE: Using a [employer] [place] DXA System (software version: 13.1) manufactured by [employer], dual-energy x-ray absorptiometry was performed of the lumbar spine and left hip. The images are of good technical quality. Summary results are attached. FINDINGS: LEFT FEMUR, NECK: BMD 1.347 g/cm2, Z-score 2.9, T-score 2.1, normal. LEFT FEMUR, TOTAL: BMD 1.330 g/cm2, Z-score 1.9, T-score 1.6, normal. AP SPINE L1-L4: BMD 1.486 g/cm2, Z-score 2.2, T-score 2.2, normal. IDENTIFIED RISK FACTORS: Renal, secondary osteoporosis (chronic liver disease?). HISTORY OF FRACTURE: None listed. MEDICATIONS: Vitamin D. MM/XR DEXA axial skeleton IMPRESSION: 1. DIAGNOSIS: Normal bone density based on the lowest T-score value of 1.6 in the total femur applying World Health Organization criteria. 2. 10-YEAR FRACTURE RISK PREDICTION, FRAX: According to the guidelines, FRAX calculation should only be performed on patients in the osteopenia bone density category. Therefore, FRAX was not performed on this patient.? 3. Treatment Recommendations: NOF guidelines recommend consideration for treatment in postmenopausal women and men age 50 and older presenting with the following: -A hip or vertebral (clinical or morphometric) fracture. -T-score less than or equal to -2.5 at the femoral neck or spine after appropriate evaluation to exclude secondary causes. -Low bone mass at the hip or spine and a 10-year fracture probability by FRAX of greater than or equal to 3% for hip fracture or greater than or equal to 20% for major osteoporotic fracture based on the [place] adapted WHO algorithm. 4. Other Recommendations: All treatment decisions require clinical judgment and consideration of individual patient factors, including patient preferences, comorbidities, previous drug use, risk factors not captured in the FRAX model (e.g. frailty, falls, vitamin D deficiency, increased bone turnover, interval significant decline in bone density) and possible under or overestimation of fracture risk by FRAX. FUTURE SCAN RECOMMENDATION: People with diagnosed cases of osteoporosis or at high risk for fracture should have regular bone mineral density tests. For patients eligible for Medicare, routine testing is allowed once every 2 years. The testing frequency can be increased to one year for patients who have rapidly progressing disease, those who are receiving or discontinuing medical therapy to restore bone mass, or have additional risk factors.
== END 2023-08-13 13:45 | disposition home or self-care (01) ==
LOC: HO.MAMMO 13:44
PROVIDERS: PCP Family Medicine; Visit Provider Family Medicine
DX: N18.6 End stage renal disease (principal); B20 Human immunodeficiency virus [HIV] disease; E21.3 Hyperparathyroidism, unspecified; M85.80 Other specified disorders of bone density and structure, unspecified site; Z13.820 Encounter for screening for osteoporosis; Z99.2 Dependence on renal dialysis
CPT/HCPCS: 77080

== ENCOUNTER 2023-08-18 07:43 | Outpatient (REF) | payer OTHER, SELFPAY ==
--- NOTE | ~2023-08-18 | US_ITS ---
EXAMINATION: US COMPLETE ABDOMEN WITH LIVER ELASTOGRAPHY CLINICAL INFORMATION: Hepatitis C and cirrhosis. COMPARISON: Abdominal ultrasound dated 05/03/2022. TECHNIQUE: Real-time imaging of the abdominal viscera. Noninvasive ultrasound liver fibrosis assessment is performed using [employer] point quantification shear wave elastography (2D-SWE) with a C5-2 MHz transducer. Multiple elastography samples are obtained. FINDINGS: PANCREAS: Normal. The visualized pancreatic head and body are normal in appearance. The remainder of the pancreas is obscured from visualization by the overlying bowel gas. ABDOMINAL AORTA: The proximal, middle, and distal aortic segments are normal in caliber. INFERIOR VENA CAVA: Visualized portions are normal. LIVER: The liver demonstrates normal size, contour and heterogeneously increased echogenicity. No focal lesion or intrahepatic biliary duct dilatation. The right lobe measures 13.8 cm in length. The left lobe measures 12.6 cm in length. Portal flow is towards the liver (hepatopetal). Shear wave liver elastography median stiffness is 1.84 m/s (reference: normal median stiffness is 1.3 m/s or less). IQR/median stiffness to assess sampling precision is 0.11 (reference: good quality data set is IQR/median stiffness of 0.15 or less). GALLBLADDER: Toward the gallbladder fossa in the body portion, there is focal wall thickening to 8 mm. The gallbladder is physiologically distended without evidence of stones, sludge, polyps or pericholecystic fluid. COMMON BILE DUCT: Normal in caliber measuring 0.3 cm in diameter. RIGHT KIDNEY: There are benign, simple cysts, the largest at the lower pole measuring 2.4 cm. These require no imaging follow-up. No hydronephrosis. No renal calculi or focal parenchymal lesions. The kidney measures 10.4 cm in maximum dimension. LEFT KIDNEY: At the interpolar aspect, a 1.3 cm benign, simple cyst is seen, for which no imaging follow-up is recommended. No hydronephrosis. No renal calculi or focal parenchymal lesions. The kidney measures 10.1 cm in maximum dimension. SPLEEN: Normal. The spleen measures 11.4 cm in maximum dimension. FREE FLUID: None. US/US abdomen comp w elastography IMPRESSION: 1. There is generalized increase in hepatic echotexture, consistent with fatty infiltration or hepatocellular disease. Please correlate clinically. No focal hepatic mass or intrahepatic biliary dilatation is seen. 2. Liver elastography: Measurements are suggestive of compensated advanced chronic liver disease but need further test for confirmation. 3. There is focal gallbladder wall thickening to 8 mm, suggesting adenomyomatosis. General Surgery evaluation and management is recommended. REFERENCE: Society of Radiologists in Ultrasound Liver Stiffness Thresholds (2020): LIVER STIFFNESS THRESHOLDS: *Liver Stiffness equal or less than 1.3 m/s: High probability of being normal. *Liver Stiffness less than 1.7 m/s: In the absence of other known clinical signs, rules out compensated advanced chronic liver disease. *Liver Stiffness 1.7-2.1 m/s: Suggestive of compensated advanced chronic liver disease but need further test for confirmation. *Liver Stiffness over 2.1 m/s: Rules in compensated advanced chronic liver disease. *Liver Stiffness over 2.4 m/s: Suggestive of clinically significant portal hypertension. QUALITY OF DATA SET: *IQR/Median value equal or less than 0.15 implies a quality data set. *IQR/Median value over 0.15 implies a poor quality data set. SIGNIFICANT CHANGE FROM PRIOR EXAM: Significant change if liver stiffness measurement is 10% or greater from prior exam. OTHER CONSIDERATIONS: The stage of liver fibrosis may be overestimated in the setting of acute hepatitis, liver inflammation, elevated liver function tests, hepatic vascular congestion, obstructive cholestasis, non-fasting state, and infiltrative diseases such as amyloidosis and lymphoma. In some patients with NAFLD, the liver stiffness thresholds for compensated advanced chronic liver disease may be lower. In causes other than viral hepatitis and NAFLD, liver stiffness thresholds are not well established.
== END 2023-08-18 07:44 | disposition home or self-care (01) ==
LOC: HO.US 07:43
PROVIDERS: PCP Family Medicine; Visit Provider Family Medicine
DX: B18.2 Chronic viral hepatitis C (principal); K74.60 Unspecified cirrhosis of liver
CPT/HCPCS: 76700; 76981

== ENCOUNTER 2023-08-18 09:23 | Outpatient (REF) | payer OTHER, SELFPAY ==
[2023-08-18 11:40] LABS: MANUAL DIFF FLAG NO
[2023-08-18 11:49] LABS: Basophils Percent Auto 0.4 % (0-2); Eosinophils Absolute Auto 0.3 X10*3/uL (0.0-0.4); Eosinophils Percent Auto 3.7 % (0-4); Hematocrit 36.8 % (42.0-52.0); Imm Gran Abs Auto 0.03 X10*3/uL (0.00-0.03); Imm Gran Pct Auto 0.4 % (0.0-0.4); Lymphocytes Absolute Auto 3.2 X10*3/uL (1.2-4.9); Lymphocytes Percent Auto 39.3 % (20-40); Mean Corpuscular HGB Conc 32.6 g/dl (31.0-36.0); Mean Corpuscular Hemoglobin 29.9 pg (27.0-33.0); Mean Corpuscular Volume 91.8 fL (80.0-98.0); Mean Platelet Volume 11.2 fL (9.4-12.4); Monocytes Absolute Auto 0.9 X10*3/uL (0.1-1.2); Monocytes Percent Auto 11.3 % (2-11); Neutrophils Absolute Auto 3.7 x10*3/uL (2.0-8.3); Neutrophils Percent Auto 44.9 % (45-73); Platelet Count 88 X10*3/uL (160-400); Red Blood Count 4.01 X10*6/uL (4.60-5.80); Red Cell Distribution Width 14.8 % (11.0-16.0); White Blood Count 8.2 X10*3/uL (4.8-10.8)
[2023-08-18 13:07] LABS: Alanine Aminotransferase 24 U/L (0-40); Albumin Level 3.9 g/dL (3.5-5.0); Alkaline Phosphatase 79 U/L (39-117); Anion Gap 16 (12-20); Aspartate Amino Transferase 22 U/L (5-37); Bilirubin Total 0.4 mg/dL (0.0-1.0); Blood Urea Nitrogen 40 mg/dL (9-16); Calcium 9.5 mg/dL (8.4-10.2); Carbon Dioxide 21 mmol/L (22-29); Chloride 109 mmol/L (96-108); Estimated Glomerular Filt Rate 8; Glucose Random 122 mg/dL (60-115); Potassium 4.8 mmol/L (3.3-5.1); Sodium 141 mmol/L (135-145); Total Protein 6.9 g/dL (6.5-8.0)
[2023-08-18 13:22] LABS: CT PCR NOT DETECTED (Not Detect.); NG PCR NOT DETECTED (Not Detect.)
[2023-08-18 13:29] LABS: HBS Num1 175.31 mIU/mL (0-7.99); HBc Num1 0.76 S/CO (0.00-0.79); Hepatitis B Core Antibody Nonreactive (Nonreactive); ~Hepatitis B Surface Antibody REACTIVE (Nonreactive)
[2023-08-18 13:34] LABS: HBsAGNum1 0.28 S/CO (0.00-0.99); Hepatitis B Surface Antigen Negative (Negative); Syphilis Screen Nonreactive (Nonreactive)
[2023-08-19 09:29] LABS: Absolute CD3 Count 2086 cells/uL (840-3060); Absolute CD4 Count 866 cells/uL (490-1740); Absolute CD8 Count 1166 cells/uL (180-1170); Absolute Lymphocytes 3471 cells/uL (850-3900); CD4 CD8 Ratio 0.74 (0.86-5.00); Percent CD3 Cells 60 % (57-85); Percent CD4 Cells 25 % (30-61); Percent CD8 Cells 34 % (12-42)
[2023-08-20 12:59] LABS: HIV RNA PCR Qn Copies 61 copies/mL (NOT DETECTED); HIV RNA PCR Qn Log Copies 1.79 (NOT DETECTED)
[2023-08-20 20:03] LABS: Alpha Fetoprotein 8.9 ng/mL (<6.1)
[2023-08-21 05:09] LABS: Rubeola IgG (Measles) >300.00 AU/mL
[2023-08-21 08:49] LABS: TS Negative Control Passed; TS Panel A 1; TS Panel B 0; TS Positive Control Passed; TSpotTB Negative (Negative)
== END 2023-08-18 09:24 | disposition home or self-care (01) ==
LOC: HO.HHCL 09:23
PROVIDERS: Visit Provider Student in an Organized Health Care Education/Training Program
DX: B20 Human immunodeficiency virus [HIV] disease (principal)
CPT/HCPCS: 0353U; 36415; 80053; 82105; 85025; 86359; 86360; 86481; 86704; 86706; 86735; 86762; 86765; 86780; 87340; 87536

== ENCOUNTER 2023-10-15 09:04 | Outpatient (REF) | payer OTHER, SELFPAY ==
[2023-10-16 12:58] LABS: HIV RNA PCR Qn Copies 80 copies/mL (NOT DETECTED)
[2023-10-26 22:09] LABS: HIV 1 Integrase Proviral DNA DETECTED; HIV 1 PR RT Proviral DNA DETECTED
== END 2023-10-15 09:05 | disposition home or self-care (01) ==
LOC: HO.HHCL 09:04
PROVIDERS: Visit Provider Student in an Organized Health Care Education/Training Program
DX: B20 Human immunodeficiency virus [HIV] disease (principal)
CPT/HCPCS: 36415; 87536; 87900; 87901; 87906

== ENCOUNTER 2023-10-20 13:13 | Outpatient (AMB) | payer BC, SELFPAY ==
--- NOTE | 2023-10-20 13:25 | A.OFFVIS_ITS ---
Vital Signs 10/20/23 13:35 Height 5 ft 6 in Weight 202 lb BMI 32.6 BP 160/93 H Blood Pressure Location Rt brachial Position Sitting Pulse 77 Intake Visit Reasons: abnorman US Intake Note: Patient referred for abnormal abdomen US. Kidney dialsis 3x wk. Patient c/o: denies abdominal pain, vomiting, nausea. Reports normal BM. ABD US: 08-18-23. Clinical Appeals Auditor Required: No Accompanied by: Leni spouse Allergies No Known Allergies [No Known Allergies*] Allergy (Verified 10/20/23 13:30) HPI Comments Details: Patient presents with his . He is unclear as to why he is here. Patient had a liver elastography demonstrating portal hypertensive changes. Patient has history of hep C and has received immunotherapy in the past for this. Proximally 3 years ago, patient was doing heavy lifting has placed him employment and noticed some discomfort in his umbilicus and has a hernia here. Patient has no other GI issues or complaints. Chart was reviewed and patient evaluate [facility] Medical History (Updated 10/20/23 @ 13:34 by JOSE Amanda) Fistula of artery Rotator cuff impingement syndrome of left shoulder Encounter for screening colonoscopy HIV (human immunodeficiency virus infection) Chronic kidney disease (CKD) Hand pain, right Hx of hepatitis C Diabetes Hypertension Surgical History (Updated 10/20/23 @ 13:47 by Venkatesh Bloom MD) Hx of circumcision Hx of colonoscopy Social History (Updated 10/20/23 @ 13:35 by JOSE Amanda) Household Members: Spouse Housing: House Are you a primary housekeeper child care to a significant other at home: No Do you presently have visiting nurse or other home services: No Alcohol intake: former Patient Tobacco Use Status: Former Tobacco user Tobacco use type: Cigarette e-Cigarette/Vaping Use: Never Used Second Hand Smoke Exposure: No service: No Current occupational status: employed 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 Bilateral groin exam negative. Genitalia within normal limits. Small reducible proximally 2 cm umbilical hernia. Abdomen corpulent, otherwise benign Assessment & Plan Assessment & Plan (1) Umbilical hernia: Code(s): K42.9 - Umbilical hernia without obstruction or gangrene Category: Surgical Plan Regarding umbilical hernia, at present, the patient wishes to be treated conservatively. Patient may need to follow-up with either her quality control assessor or senior qa engineer regarding his liver findings on ultrasound. No acute surgical issues at this time. We will defer to patient's private medical doctor regarding further workup. All questions answered. Coding Level of Care Code New Pt Level 4 (99091) Diagnoses Umbilical hernia K42.9
[2023-10-20 13:35] VITALS: BP 160/93; PULSE 77; BMI 32.6
== END 2023-10-20 13:50 | disposition home or self-care (01) ==
PROVIDERS: PCP Family Medicine; Visit Provider Surgery
DX: K42.9 Umbilical hernia without obstruction or gangrene (principal)
CPT/HCPCS: 99203

== ENCOUNTER → 2023-10-20 13:13 | Outpatient (BNVA) | payer OTHER, SELFPAY | PROVIDERS: PCP Family Medicine; Visit Provider Surgery ==

== ENCOUNTER 2024-06-23 09:37 | Outpatient (REF) | payer BC, SELFPAY ==
--- NOTE | ~2024-06-23 | XR_ITS ---
EXAMINATION: XR KNEE, RIGHT CLINICAL INFORMATION: right knee pain and swelling. Hx gout COMPARISON: None available. TECHNIQUE: Four views of the right knee. FINDINGS: No acute cortical disruption or malalignment. No lytic or blastic lesions. No suprapatellar bursa joint effusion. Small exostosis at the quadriceps tendon insertion. Vascular calcifications.. XR/XR knee RT 3V IMPRESSION: No acute fracture or dislocation. Enthesopathy, quadriceps tendon. Atherosclerosis disease, peripheral. Electronically signed by: Mckay Mensah MD 06/23/2024 10:16 AM KAMRYN
--- OUTSIDE RECORDS SUMMARY | 2024-06-23 10:57 | XMS_ITS | Clinical Summary ---
Author Organization [facility], Address [address] [place] [address] Phone Care Team Providers Care Electric Motor Analyst Name Role Phone Janet Magaña MD Primary Care Provider [phone] Allergies Active Allergy Reactions Criticality Noted Date Comments Aspirin Other (see comments) Low 06/19/2016 Pt states not allergy Glipizide Other (see comments) Low 06/19/2016 Not an allergy per patient Caused hypoglycemia Nsaids Low 03/27/2023 Unaware/Not sure Just can't take them Medications Januvia 25 MG tablet 1 Active Juluca 50-25 MG tablet Take 1 tablet by mouth 1 (one) time each day 2 Active doxazosin (CARDURA) 2 MG tablet Take 2 mg by mouth every night Active ergocalciferol 1.25 MG (39847 UT) capsule TAKE 1 CAPSULE EVERY WEEK 13 capsule 3 3 Active sodium bicarbonate 650 MG tablet Take 1 tablet (650 mg total) by mouth in the morning and 1 tablet (650 mg total) in the evening and 1 tablet (650 mg total) before bedtime. 90 tablet 3 3 Active allopurinol (ZYLOPRIM) 100 MG tablet TAKE 0.5 TABLET BY MOUTH TWICE A WEEK ON FRIDAY AND Friday 3 Active atorvastatin (LIPITOR) 10 MG tablet 3 Active Sodium Zirconium Cyclosilicate (Lokelma) 10 g pack Take 10 g by mouth 3 times weekly on Friday 12 each 4 Active Additional Information Patient not taking.Reported on 08/22/2023 omega-3 (FISH OIL) 300 MG capsule Take by mouth 1 (one) time each day Active Folic Acid-Cholecalcife rol (CHOLECAL DF PO) Take by mouth Active Active Problems Problem Noted Date Diagnosed Date Acidosis 02/25/2023 Hyperkalemia 02/25/2023 Hepatitis 02/24/2023 Tuberculosis 02/24/2023 HIV detected 02/24/2023 Gout 02/24/2023 Stage 5 chronic kidney disease 10/08/2022 Focal segmental glomerulosclerosis 02/10/2020 Renal disorder due to type 2 diabetes mellitus 0 08/02/2019 Proteinuria 08/02/2019 Chronic kidney disease, stage 4 (severe) 019 Hypertensive disorder 04/08/2019 IgA nephropathy 04/08/2019 Resolved Problems Problem Noted Date Diagnosed Date Resolved Date Hyperlipidemia 08/02/2019 11/20/2020 Dyslipidemia 04/08/2019 07/27/2019 Type 2 diabetes mellitus 04/08/201905/2020 Encounters Date Type Department Care Team Description 06/22/2024 Treatment [facility], [address] [place] [address] Cristino Greene MD End stage renal disease; Dependence on renal dialysis 06/17/2024 Orders Only [facility] [address] [address] Dae Lentz MD 06/15/2024 Treatment [facility], [address] [place] [address] Cristino Greene MD 06/10/2024 Orders Only [facility] [address] [address] Dae Lentz MD 06/08/2024 Treatment [facility], [address] [place] [address] Anna Stuart FNP-C 06/03/2024 Orders Only [facility] [address] [address] Dae Lentz MD 06/01/2024 Treatment [facility] [address] [place] [address] Cristino Greene MD 05/27/2024 Orders Only [facility] [address] [place] [address] Dae Lentz MD 05/25/2024 Treatment [facility] [address] [place] [address] Anna Stuart TABLE KEEPER-C 05/20/2024 Orders Only [facility] [address] [address] Dae Lnetz MD 05/18/2024 Treatment [facility] [address] [place] [address] Anna Stuart TABLE KEEPER-C 05/15/2024 Orders Only [facility] [address] [address] Dae Lentz MD 05/07/2024 Treatment [facility] [address] [place] [address] Cristino Greene MD 05/06/2024 Orders Only [facility] [address] [address] Dae Lentz MD 04/29/2024 Orders Only [facility] [address] [address] Dae Lentz MD 04/29/2024 Treatment [facility] [address] [place] [address] Olu Robles PA 04/22/2024 Orders Only [facility] [address] [address] Dae Lentz MD 04/22/2024 Treatment [facility] [address] [place] [address] Olu Robles PA 04/15/2024 Orders Only [facility] [address] [address] Dae Lentz MD 04/08/2024 Orders Only [facility] [address] [address] Dae Lentz MD 04/06/2024 Treatment [facility] [address] [place] [address] Olu Robles PA 04/01/2024 Orders Only [facility] [address] [address] Dae Lentz MD 03/30/2024 Treatment [facility] [address] [place] [address] Olu Robles PA 03/25/2024 Orders Only [facility] [address] [address] Dae Lentz MD 03/25/2024 Treatment [facility] [address] [place] [address] Cristino Greene MD from Last 3 Months Immunizations Name Administration Dates Next Due Hepatitis B 05/09/2016, 6,07/31/2015,03/28 Influenza Split High Dose Pr eservative Free IM 12/05/2014 Influenza, Recombinant, Quad rivalent, Pf 02/27/2020 Influenza, Unspecified 02/07/2022,2020,02/27/2020,01/19,02/06/2018,03/10/2017,01/25/2016 ,01/17/2015,12/20/2009 Meningococcal, Unspecified 03/27/2017,10/17/2016 Moderna SARS-COV-2 01/12/2021,07/06/2020, 021 Pneumococcal Conjugate 13-Valent 01/25/2016 Pneumococcal Polysaccharide 03/28/2014 SARS-CoV-2, Unspecified 02/07/2022 Td, Unspecified 04/21/2005 Tdap 05/06/2012 Family History Medical History Relation Comments Diabetes Mother Hypertension Mother Relation Status Comments Father Mother Unknown Social History Tobacco Use Types Packs/Day Years Used Date Smoking Tobacco: Former Cigarettes Q uit: 09/01/2012 Tobacco Cessation:Counseling Given: Not Answered Comments:Smoking History Info:Every day Alcohol Use Standard Drinks/Week Comments Not Currently 0 (1 standard drink = 0.6 oz pure alcohol) Alcoholic Drinks/day: Occasional social drink Sex and Gender Information Value Date Recorded Sex Assigned at Not on file Legal Sex Male 4:37 PM EST Gender Identity Not on file Sexual Orientation Not on file Last Filed Vital Signs Vital Sign Reading Time Taken Comments Blood Pressure 158/86 09/18/2023 7:58 AM EDT Pulse 83 09/18/2023 7:58 AM EDT Temperature 36.3 ??C (97.3 ??F) 08/22/2023 9:50 AM ED T Respiratory Rate 16 05/16/2023 1:16 PM EST Oxygen Saturation 96% 09/18/2023 7:58 AM EDT Inhaled Oxygen Concentration - - Weight 90.7 kg (200 lb) 09/18/2023 7:58 AM EDT Height 172.7 cm (5' 8 ) 09/18/2023 7:58 AM EDT Body Mass Index 30.41 09/18/2023 7:58 AM EDT Plan of Treatment Health Maintenance Due Date Last Done Comments Hepatitis B Vaccine (1 of 5 - Risk Dialysis 4-dose series) 1980 05/09/2016, 02/20/2016, 07/31/2015, Additional history exists Colorectal Cancer Screening: Annual FOBT 01/31/2008 Colorectal Cancer Screening: Colonoscopy 01/31/2008 Colorectal Cancer Screening: Sigmoidoscopy 01/31/2008 Pneumococcal Vaccine: 65+ Ye ars (3 of 3 - PPSV23 or PCV20) 03/28/2019 01/25/2016, 03/28/2014 Pneumococcal Vaccine: Pediat rics (0 to 5 Years) and At-Risk Patients (6 to 64 Years) (3 of 3 - PPSV23 or PCV20) 03/28/2019 01/25/2016, 03/28/2014 Diabetes: Ophthalmology Exam 04/08/2019 Diabetes: Pedal Pulse Checked 04/08/2019 Diabetes: Sensory Foot Exam 04/08/2019 Diabetes: Visual Foot Exam 04/08/2019 Influenza Vaccine (#1) 2023 2, 01/12/2021, 02/27/2020, Additional history exists Diabetes: Hemoglobin A1C 08/04/2024 025, 02/05/2024, 08/07/2023, Additional history exists Procedures Procedure Name Priority Date/Time Associated Diagnosis Comments HEMATOLOGY Routine 06/17/2024 IMMUNO CHEMISTRY Routine 06/10/2024 CHEMISTRY Routine 06/10/2024 HEMATOLOGY Routine 06/10/2024 CHEMISTRY Routine 06/10/2024 HEMATOLOGY Routine 06/03/2024 [facility] LAB RESULTS Routine 05/27/2024 HD KINETICS Routine 05/27/2024 POST CHEMISTRY Routine 05/27/2024 CHEMISTRY Routine 05/27/2024 HEMATOLOGY Routine 05/27/2024 HEMATOLOGY Routine 05/20/2024 CHEMISTRY Routine 05/15/2024 HEMATOLOGY Routine 05/15/2024 TRACE ELEMENTS Routine 05/06/2024 IMMUNO CHEMISTRY Routine 05/06/2024 SPECIAL CHEMISTRY Routine 05/06/2024 CHEMISTRY Routine 05/06/2024 SPECIAL CHEMISTRY Routine 05/06/2024 HEMATOLOGY Routine 05/06/2024 CHEMISTRY Routine 05/06/2024 RENAL FUNCTION PANEL Routine 05/04/2024 9:20 AM EST HEMATOLOGY Routine 04/29/2024 [facility] LAB RESULTS Routine 04/22/2024 HD KINETICS Routine 04/22/2024 POST CHEMISTRY Routine 04/22/2024 CHEMISTRY Routine 04/22/2024 HEMATOLOGY Routine 04/22/2024 HEMATOLOGY Routine 04/15/2024 HEMATOLOGY Routine 04/08/2024 IMMUNO CHEMISTRY Routine 04/08/2024 CHEMISTRY Routine 04/08/2024 CHEMISTRY Routine 04/08/2024 HEMATOLOGY Routine 04/01/2024 [facility] LAB RESULTS Routine 03/25/2024 HD KINETICS Routine 03/25/2024 POST CHEMISTRY Routine 03/25/2024 CHEMISTRY Routine 03/25/2024 HEMATOLOGY Routine 03/25/2024 from Last 3 Months Results * (ABNORMAL) HEMATOLOGY (06/17/2024) Only the most recent of13 resultswithin the time period is included. Hemoglobin 12.8(L) 14.0 - 18.0 g/dL [facility] Hemoglobin x 3 38.4(L) 42.0 - 54.0 % [facility] 06/17/2024 06/19/2024 11: 11 AM EST Narrative [facility] - 06/19/2024 Unless otherwise specified, test(s) performed at: [facility], [address] [place] [address] OVERNIGHT CASHIER: Joey Ornelas M.D. For any questions, please call customer service at FREQUENCY:OTHER Resulting Agency Comment Specimen source: Blood Dae Lentz MD LAB BLOOD ORDERABLES Final Re sult Performing Organization Address City/[facility]/ZIP Co de Phone Number [facility] See order comments or contact performing lab Unknown, [place] * IMMUNO CHEMISTRY (06/10/2024) Only the most recent of3 resultswithin the time period is included. Pathologist [facility] Hep B Surface Ag Negative Negative [facility] 06/10/2024 06/11/2024 9:3 5 AM EST Narrative Resulting Agency Comment Specimen source: Serum Dae Lentz MD LAB BLOOD ORDERABLES Final Re sult Performing Organization Address [facility] Co de Phone Number [facility] See order comments or contact performing lab Unknown, [place] * (ABNORMAL) [facility] Chemistry (06/10/2024) Only the most recent of10 resultswithin the time period is included. Pathologist [facility] Creatinine 10.09(H) 0.60 - 1.30 mg/dL [facility] Sodium 141 136 - 145 mEq/L [facility] Potassium 4.8 3.5 - 5.1 mEq/L [facility] Bicarbonate (CO2) 23 22 - 29 mEq/L [facility] Calcium 9.3 8.4 - 10.2 mg/dL [facility] Corrected Calcium 9.2 8.4 - 10.2 mg/dL [facility] Comment: Corrected Calcium is not equivalent to measured Ionized Calcium. Phosphorus 5.9(H) 2.6 - 4.5 mg/dL [facility] Calcium Phosphorus Product 55(H) 0 - 54 [facility] Calcium Phosporus Product, Cor 54 0 - 54 [facility] Alkaline Phosphatase 69 40 - 129 U/L [facility] ALT (SGPT) 14 7 - 52 U/L [facility] Albumin 4.1 3.5 - 5.2 g/dL [facility] Iron 105 45 - 160 mcg/dL [facility] UIBC 225 155 - 355 mcg/dL [facility] TIBC 330 185 - 515 mcg/dL [facility] Iron Saturation (TSat) 32 20 - 55 % [facility] Ferritin 121 22 - 322 ng/mL [facility] 06/10/2024 06/11/2024 9:3 5 AM EST Narrative [facility] - 06/11/2024 Unless otherwise specified, test(s) performed at: [facility], [address] [place] [address] OVERNIGHT CASHIER: Joey Ornelas M.D. For any questions, please call customer service at FREQUENCY:MONTHLY Resulting Agency Comment Specimen source: Serum Dae Lentz MD LAB BLOOD ORDERABLES Edited R esult - Final Performing Organization Address [facility] de Phone Number [facility] See order comments or contact performing lab Unknown, [place] * HD KINETICS (05/27/2024) Only the most recent of3 resultswithin the time period is included. % Urea Reduction 69 65 - 80 % [facility] 05/27/2024 06/01/2024 10: 29 AM EST Narrative Resulting Agency Comment Specimen source: Plasma Dae Lentz MD LAB BLOOD ORDERABLES Final Re sult Performing Organization Address [facility] de Phone Number [facility] See order comments or contact performing lab Unknown, [place] * POST CHEMISTRY (05/27/2024) Only the most recent of3 resultswithin the time period is included. BUN Post Dialysis 16 6 - 19 mg/dL [facility] 05/27/2024 06/01/2024 10: 29 AM EST Narrative [facility] - 06/01/2024 Unless otherwise specified, test(s) performed at: [facility], [address] [place] [id number] OVERNIGHT CASHIER: Joey Ornelas M.D. For any questions, please call customer service at FREQUENCY:OTHER Resulting Agency Comment Specimen source: Plasma Dae Lentz MD LAB BLOOD ORDERABLES Final Re sult [facility] See order comments or contact performing lab Unknown, [place] * [facility] Lab Results (05/27/2024) Only the most recent of3 resultswithin the time period is included. Pathologist [facility] eKdrt/V 1.23 [facility] PCR 69.59 [facility] spKt/V Gotch 1.41 [facility] eKt/V ([place]) 1.22 [facility] spKt/V (Daugirdas II) 1.40 [facility] nPCR_HD 0.90 [facility] WSTDKT/V 2.3 [facility] eKt/V Gotch 1.23 [facility] e Center eNPCR 0.84 [facility] 05/27/2024 05/27/2024 [facility] [place] LAB BLOOD ORDERABLES Final Result Performing Organization Address [facility] de Phone Number [facility] Contact Performing lab Unknown, [place] * SPECIAL CHEMISTRY (05/06/2024) Only the most recent of2 resultswithin the time period is included. Vitamin D, 25-OH, Total 57.1 30.0 - 100.0 ng/mL [facility] Comment: Please Note:? Effective February 17, 2023, the methodology for this test has changed to the [facility]. 05/06/2024 05/08/2024 11: 30 AM EST Narrative Resulting Agency Comment Specimen source: Serum Dae Lentz MD LAB BLOOD BANK TEST ORDERABLE S Final Result Performing Organization Address City/[facility]/ZIP Co de Phone Number [facility] See order comments or contact performing lab Unknown, [place] * TRACE ELEMENTS (05/06/2024) Aluminum <5 0 - 10 mcg/L [facility] Comment: This test was developed and its performance characteristics determined by [facility]. It has not been cleared or approved by the FDA. The laboratory is regulated under CLIA as qualified to perform high complexity testing. This test is used for clinical purposes. It should not be regarded as investigational or for research. 05/06/2024 05/08/2024 11: 28 AM EST Narrative [facility] - 05/10/2024 Unless otherwise specified, test(s) performed at: [facility], [address] [place] [address] OVERNIGHT CASHIER: Joey Ornelas M.D. For any questions, please call customer service at FREQUENCY:MONTHLY Resulting Agency Comment Specimen source: Serum Dae Lentz MD LAB BLOOD ORDERABLES Final Re sult [facility] See order comments or contact performing lab Unknown, [place] * (ABNORMAL) Renal Function Panel (05/04/2024 9:20 AM EST) Pathologist [facility] Glucose 93 70 - 99 mg/dL [facility] BUN 54(H) 8 - 27 mg/dL [facility] Creatinine 9.94(H) 0.76 - 1.27 mg/dL [facility] eGFR CKD-EPI CR 2020 5(L) >59 mL/min/1.7 3 [facility] BUN/Creatinine Ratio 5(L) 10 - 24 [facility] Sodium 139 134 - 144 mmol/L [facility] Potassium 5.1 3.5 - 5.2 mmol/L [facility] Chloride 102 96 - 106 mmol/L [facility] Bicarbonate (CO2) 21 20 - 29 mmol/L [facility] Calcium 9.5 8.6 - 10.2 mg/dL [facility] Albumin 4.4 3.9 - 4.9 g/dL [facility] Phosphorus 5.5(H) 2.8 - 4.1 mg/dL [facility] 05/04/2024 9:20 AM EST 05/04/2024 us Jeffry Santana MD LAB BLOOD ORDERABLES Final Resul t [facility] [address] [place] [address] from Last [address] [place] [address] [place] [address] Care Teams Electric Motor Analyst Relationship Specialty Start Date End Date Janet Magaña MD PCP - General 02/23/19
--- OUTSIDE RECORDS SUMMARY | 2024-06-23 10:57 | XMS_ITS | Encounter Summary ---
Author Organization [facility], Address [address] [place] [address] Phone Care Team Providers Care Shore Working Supervisor Name Role Phone Janet Magaña MD Primary Care Provider [phone] Encounter Details Date Type Department Care Team (Late st Contact Info) Description 08/05/2022 Documentation Only [facility], [address] [place] [address] Jeffry Santana MD [address] [place] [address] Social History Tobacco Use Types Packs/Day Years Used Date Smoking Tobacco: Former Cigarettes Q uit: 09/01/2012 Comments:Smoking History Inf o:Every day Sex and Gender Information Value Date Recorded Sex Assigned at Not on file Legal Sex Male 4:37 PM EST Gender Identity Not on file Sexual Orientation Not on file documented as of this encounter Plan of Treatment Not on file documented as of this encounter Visit Diagnoses Not on filedocumented in this encounter Care Teams Shore Working Supervisor Relationship Specialty Start Date End Date Janet Magaña MD PCP - General 02/23/19 documented as of this encounter
--- OUTSIDE RECORDS SUMMARY | 2024-06-23 10:57 | XMS_ITS | Encounter Summary ---
Author Organization [facility], Address [address] [place] [address] Phone Care Team Providers Care Meringuer Name Role Phone Janet Magaña MD Primary Care Provider [phone] Encounter Details Date Type Department Care Team (Late st Contact Info) Description 08/05/2022 Documentation Only [facility], [address] [place] [address] Jeffry Santana MD [address] [place] [address] Social History Tobacco Use Types [...] on filedocumented in this encounter Care Teams Meringuer Relationship Specialty Start Date End Date Janet Magaña MD PCP - General 02/23/19 documented as of this encounter
--- OUTSIDE RECORDS SUMMARY | 2024-06-23 10:57 | XMS_ITS | Encounter Summary ---
Author Organization [facility], Address [address] [place] [address] Phone Care Team Providers Care Deportation Officer Name Role Phone Janet Magaña MD Primary Care Provider [phone] Encounter Details Date Type Department Care Team (Late st Contact Info) Description 06/13/2023 Orders Only [facility], [address] [place] [address] Jeffry Santana MD [address] [facility] [place] [id number] Stage 5 chronic kidney disease (HCC) Social History Tobacco Use Types Packs/Day Years Used Date Smoking Tobacco: Former Cigarettes Q uit: 09/01/2012 Comments:Smoking History Inf o:Every day Alcohol Use Standard Drinks/Week Comments Not [...] Procedure Name Priority Date/Time Associated Diagnosis Comments RENAL FUNCTION PANEL Routine 06/16/2023 2:25 PM EST Stage 5 chronic kidney disease (HCC) documented in this encounter Results * (ABNORMAL) Renal Function Panel (06/16/2023 2:25 PM EST) Glucose 155(H) (70-99) MG/DL [facility] BUN 39(H) (8-23) MG/DL [facility] Creatinine 7.3(H) (0.7-1.2) MG/DL [facility] Sodium 141 (133-145) MMOL/L [facility] Potassium 5.1 (3.6-5.2) MMOL/L [facility] Chloride 106 (98-107) MMOL/L [facility] Bicarbonate (CO2) 22 (22-29) MMOL/L [facility] Anion Gap 13 (4-17) [facility] Albumin 3.9 (3.4-4.8) GM/DL [facility] Calcium 9.3 (8.6-10.5) MG/DL [facility] Phosphorus, Serum 3.9 (2.5-4.5) MG/DL [facility] Est GFR Non 8 ML/MIN/1.7 3 M2 [facility] Comment: Creatinine based estimated glomerular filtration (eGFR) in adults is calculated using the National Kid[employer] recommended 2020 CKD-EPI equation. Estimates GFR from serum creatinine, age and sex. Testing performed or reported by [facility], a Service of [facility], [address] [place] [address] Naun Ha MD, Neonatal Icu Coordinator [facility]# [id number] Blood (Blood, Venous) 06/16/2023 2:25 PM EST 06/16/2023 2:36 PM EST us Jeffry Santana MD LAB BLOOD ORDERABLES Final Resul t [facility] documented in this encounter Visit Diagnoses Diagnosis Stage 5 chronic kidney disease (HCC) documented in this encounter Care Teams Deportation Officer Relationship Specialty Start Date End Date Janet Magaña MD PCP - General 02/23/19 documented as of this encounter
--- OUTSIDE RECORDS SUMMARY | 2024-06-23 10:57 | XMS_ITS | Encounter Summary ---
Author Organization [facility], Address [address] [place] [address] Phone Care Team Providers Care Button Cutter Name Role Phone Janet Magaña MD Primary Care Provider [phone] Encounter Details Date Type Department Care Team (Late st Contact Info) Description 07/17/2022 Documentation Only [facility], [address] [place] [address] Merrill Ariza, DO [address] [place] [address] Social History Tobacco Use Types [...] on filedocumented in this encounter Care Teams Button Cutter Relationship Specialty Start Date End Date Janet Magaña MD PCP - General 02/23/19 documented as of this encounter
--- OUTSIDE RECORDS SUMMARY | 2024-06-23 10:57 | XMS_ITS | Encounter Summary ---
Author Organization [facility], Address [address] [place] [address] Phone Care Team Providers Care Science Editor Name Role Phone Janet Magaña MD Primary Care Provider [phone] Encounter Details Date Type Department Care Team (Late st Contact Info) Description 04/18/2023 Orders Only [facility], [address] [place] [address] Jeffry Santana MD [address] [facility] [place] [address] Stage 5 chronic kidney disease (HCC) Social [...] Associated Diagnosis Comments RENAL FUNCTION PANEL Routine 04/23/2023 1:01 PM EST Stage 5 chronic kidney disease (HCC) documented in this encounter Results * (ABNORMAL) Renal Function Panel (04/23/2023 1:01 PM EST) Glucose 81 (70-99) MG/DL [facility] BUN 52(H) (8-23) MG/DL [facility] Creatinine 7.8(H) (0.7-1.2) MG/DL [facility] Sodium 142 (133-145) MMOL/L [facility] Potassium 4.9 (3.6-5.2) MMOL/L [facility] Chloride 108(H) (98-107) MMOL/L [facility] Bicarbonate (CO2) 24 (22-29) MMOL/L [facility] Anion Gap 10 (4-17) [facility] Albumin 3.4 (3.4-4.8) GM/DL [facility] Calcium 8.2(L) (8.6-10.5) MG/DL [facility] Phosphorus, Serum 4.4 (2.5-4.5) MG/DL [facility] Est GFR Non 7 ML/MIN/1.7 3 M2 [facility] Comment: Creatinine based estimated glomerular filtration (eGFR) in adults is calculated using the National Kidney Foundation recommended 2020 CKD-EPI equation. Estimates GFR from serum creatinine, age and sex. Testing performed or reported by [facility], a Service of [facility], [address] [place] [address] Naun Ha MD, Plug Making Operator [facility]# [id number] Blood (Blood, Venous) 04/23/2023 1:01 PM EST 04/23/2023 1:02 PM EST us Jeffry Santana MD LAB BLOOD ORDERABLES Final Resul t [facility] documented in this encounter Visit Diagnoses Diagnosis Stage 5 chronic kidney disease (HCC) documented in this encounter Care Teams Science Editor Relationship Specialty Start Date End Date Janet Magaña MD PCP - General 02/23/19 documented as of this encounter
--- OUTSIDE RECORDS SUMMARY | 2024-06-23 10:57 | XMS_ITS | Encounter Summary ---
Author Organization [facility] [place], Address [address] [place] [address] Phone Care Team Providers Care Hydrometeorology Teacher Name Role Phone Janet Magaña MD Primary Care Provider [phone] Encounter Details Date Type Department Care Team (Late st Contact Info) Description 02/21/2023 Documentation Only [facility], [address] [place] [address] Jenn Vivar [address] [place] [address] Social History Tobacco Use Types Packs/Day Years [...] on filedocumented in this encounter Care Teams Hydrometeorology Teacher Relationship Specialty Start Date End Date Janet Magaña MD PCP - General 02/23/19 documented as of this encounter
--- OUTSIDE RECORDS SUMMARY | 2024-06-23 10:57 | XMS_ITS | Encounter Summary ---
Author Organization [facility] [place], Address [address] [place] [address] Phone Care Team Providers Care Consulting Group Analyst Name Role Phone Janet Magaña MD Primary Care Provider [phone] Encounter Details Date Type Department Care Team (Late st Contact Info) Description 08/05/2022 Documentation Only [facility] [place], [address] [place] [address] Jeffry Santana MD [address] [place] [address] Social History Tobacco Use Types [...] on filedocumented in this encounter Care Teams Consulting Group Analyst Relationship Specialty Start Date End Date Janet Magaña MD PCP - General 02/23/19 documented as of this encounter
--- OUTSIDE RECORDS SUMMARY | 2024-06-23 10:57 | XMS_ITS | Encounter Summary ---
Author Organization [facility] [place], Address [address] [place] [address] Phone Care Team Providers Care Geochemistry Teacher Name Role Phone Janet Magaña MD Primary Care Provider [phone] Encounter Details Date Type Department Care Team (Late st Contact Info) Description 12/26/2023 Orders Only [facility] [place], [address] [place] [address] Jeffry Santana MD [address] [facility] [address] [place] [phone] Stage 5 chronic kidney disease (HCC) Social [...] Associated Diagnosis Comments RENAL FUNCTION PANEL Routine 05/04/2024 9:20 AM EST documented in this encounter Results * (ABNORMAL) Renal Function Panel (05/04/2024 9:20 AM EST) Glucose 93 70 - 99 mg/dL [facility] BUN 54(H) 8 - 27 mg/dL [facility] Creatinine 9.94(H) 0.76 - 1.27 mg/dL [facility] eGFR CKD-EPI CR 2020 5(L) >59 mL/min/1.7 3 [facility] BUN/Creatinine Ratio 5(L) 10 - 24 [facility] Sodium 139 134 - 144 mmol/L [facility] Potassium 5.1 3.5 - 5.2 mmol/L [facility] Chloride 102 96 - 106 mmol/L [facility] Bicarbonate (CO2) 21 20 - 29 mmol/L [facility] Calcium 9.5 8.6 - 10.2 mg/dL [facility] Albumin 4.4 3.9 - 4.9 g/dL [facility] Phosphorus 5.5(H) 2.8 - 4.1 mg/dL [facility] 05/04/2024 9:20 AM EST 05/04/2024 us Jeffry Santana MD LAB BLOOD ORDERABLES [facility] [address] [place] [address] documented in this encounter Visit Diagnoses Diagnosis Stage 5 chronic kidney disease (HCC) documented in this encounter Care Teams Geochemistry Teacher Relationship Specialty Start Date End Date Janet Magaña MD PCP - General 02/23/19 documented as of this encounter
--- OUTSIDE RECORDS SUMMARY | 2024-06-23 10:57 | XMS_ITS | Encounter Summary ---
Author Organization [facility] [place], Address [address] [place] [address] Phone Care Team Providers Care Nutrition Teacher Name Role Phone Janet Magaña MD Primary Care Provider [phone] Encounter Details Date Type Department Care Team (Late st Contact Info) Description 11/28/2023 Orders Only [facility] [place], [address] [place] [address] Jeffry Santana MD [address] [place] [phone] Stage 5 chronic kidney disease (HCC) Social [...] documented as of this encounter Visit Diagnoses Diagnosis Stage 5 chronic kidney disease (HCC) documented in this encounter Care Teams Nutrition Teacher Relationship Specialty Start Date End Date Janet Magaña MD PCP - General 02/23/19 documented as of this encounter
--- OUTSIDE RECORDS SUMMARY | 2024-06-23 10:57 | XMS_ITS | Encounter Summary ---
Author Organization [facility] [place], Address [address] [place] [address] Phone Care Team Providers Care Consultative Sales Associate Name Role Phone Janet Magaña MD Primary Care Provider [phone] Encounter Details Date Type Department Care Team (Late st Contact Info) Description 02/21/2023 Documentation Only [facility] [place], [address] [place] [address] Jenn Vivar [address] [place] [address] Social History Tobacco Use Types [...] on filedocumented in this encounter Care Teams Consultative Sales Associate Relationship Specialty Start Date End Date Janet Magaña MD PCP - General 02/23/19 documented as of this encounter
--- OUTSIDE RECORDS SUMMARY | 2024-06-23 10:57 | XMS_ITS | Encounter Summary ---
Author Organization [facility] [place], Address [address] [place] [address] Phone Care Team Providers Care Glass Driller Name Role Phone Janet Magaña MD Primary Care Provider [phone] Encounter Details Date Type Department Care Team (Late st Contact Info) Description 11/21/2017 Documentation Only [facility] [place], [address] [place] [address] Jeffry Santana MD [address] [place] [address] Social History Tobacco Use Types Packs/Day Years Used Date Smoking Tobacco: Never Assessed Sex and Gender Information Value Date Recorded Sex Assigned at Not on file Legal Sex Male 4:37 PM EST Gender Identity Not on file Sexual Orientation Not on file documented as of this encounter Plan of Treatment Not on file documented as of this encounter Visit Diagnoses Not on filedocumented in this encounter Care Teams Glass Driller Relationship Specialty Start Date End Date Janet Magaña MD PCP - General 02/23/19 documented as of this encounter
--- OUTSIDE RECORDS SUMMARY | 2024-06-23 10:57 | XMS_ITS | Encounter Summary ---
Author Organization [facility] [place], Address [address] [place] [address] Phone Care Team Providers Care Metal Sprayer Protective Coating Name Role Phone Janet Magaña MD Primary Care Provider [phone] Encounter Details Date Type Department Care Team (Late st Contact Info) Description 10/31/2023 Orders Only [facility] [place], [address] [place] [address] Jeffry Santana MD [address] [place] [phone] Stage 5 chronic kidney disease (HCC) Social [...] (HCC) documented in this encounter Care Teams Metal Sprayer Protective Coating Relationship Specialty Start Date End Date Janet Magaña MD PCP - General 02/23/19 documented as of this encounter
--- OUTSIDE RECORDS SUMMARY | 2024-06-23 10:57 | XMS_ITS | Encounter Summary ---
Author Organization [facility] [place], Address [address] [place] [address] Phone Care Team Providers Care History Faculty Member Name Role Phone Janet Magaña MD Primary Care Provider [phone] Encounter Details Date Type Department Care Team (Late st Contact Info) Description 03/21/2023 Orders Only [facility] [place], [address] [place] [address] Jeffry Santana MD [address] [facility] [place] [address] Stage 5 chronic kidney disease [...] Associated Diagnosis Comments RENAL FUNCTION PANEL Routine 03/24/2023 12:19 PM EST Stage 5 chronic kidney disease (HCC) documented in this encounter Results * (ABNORMAL) Renal Function Panel (03/24/2023 12:19 PM EST) Glucose 100(H) (70-99) MG/DL [facility] BUN 54(H) (8-23) MG/DL [facility] Creatinine 6.6(H) (0.7-1.2) MG/DL [facility] Sodium 142 (133-145) MMOL/L [facility] Potassium 4.9 (3.6-5.2) MMOL/L [facility] Chloride 111(H) (98-107) MMOL/L [facility] Bicarbonate (CO2) 19(L) (22-29) MMOL/L [facility] Anion Gap 12 (4-17) [facility] Albumin 3.7 (3.4-4.8) GM/DL [facility] Calcium 8.7 (8.6-10.5) MG/DL [facility] Phosphorus, Serum 4.4 (2.5-4.5) MG/DL [facility] Est GFR Non 9 ML/MIN/1.7 3 M2 [facility] Comment: Creatinine based estimated glomerular filtration (eGFR) in adults is calculated using the National Kidney Foundation recommended 2020 CKD-EPI equation. Estimates GFR from serum creatinine, age and sex. Testing performed or reported by [facility], a Service of [facility], [address] [place] [address] Naun Ha MD, Slip Cover Cutter [facility]# [id number] Blood (Blood, Venous) 03/24/2023 12:19 PM EST 03/24/2023 12:33 PM EST us Jeffry Santana MD LAB BLOOD ORDERABLES Final Resul t [facility] documented in this encounter Visit Diagnoses Diagnosis Stage 5 chronic kidney disease (HCC) documented in this encounter Care Teams History Faculty Member Relationship Specialty Start Date End Date Janet Magaña MD PCP - General 02/23/19 documented as of this encounter
--- OUTSIDE RECORDS SUMMARY | 2024-06-23 10:57 | XMS_ITS | Encounter Summary ---
Author Organization [facility] [place], Address [address] [place] [address] Phone Care Team Providers Care Costume Technician Name Role Phone Janet Magaña MD Primary Care Provider [phone] Encounter Details Date Type Department Care Team (Late st Contact Info) Description 09/30/2022 Documentation Only [facility], [address] [place] [address] Merle Figueredo [address] [place] [address] Social History Tobacco Use Types [...] on filedocumented in this encounter Care Teams Costume Technician Relationship Specialty Start Date End Date Janet Magaña MD PCP - General 02/23/19 documented as of this encounter
--- OUTSIDE RECORDS SUMMARY | 2024-06-23 10:57 | XMS_ITS | Encounter Summary ---
Author Organization [facility] [place], Address [address] [place] [address] Phone Care Team Providers Care Insecticide Supervisor Name Role Phone Janet Magaña MD Primary Care Provider [phone] Encounter Details Date Type Department Care Team (Late st Contact Info) Description 09/18/2022 Documentation Only [facility], [address] [place] [address] Merle Figueredo [address] [place] [address] Social History Tobacco Use Types [...] on filedocumented in this encounter Care Teams Insecticide Supervisor Relationship Specialty Start Date End Date Janet Magaña MD PCP - General 02/23/19 documented as of this encounter
--- OUTSIDE RECORDS SUMMARY | 2024-06-23 10:57 | XMS_ITS | Encounter Summary ---
Author Organization [facility] [place], Address [address] [place] [address] Phone Care Team Providers Care Ammonia Operator Name Role Phone Janet Magaña MD Primary Care Provider [phone] Encounter Details Date Type Department Care Team (Late st Contact Info) Description 06/29/2021 Documentation Only [facility] [place], [address] [place] [place] [address] Jeffry Santana MD [address] [place] [address] Social History Tobacco Use Types [...] on filedocumented in this encounter Care Teams Ammonia Operator Relationship Specialty Start Date End Date Janet Magaña MD PCP - General 02/23/19 documented as of this encounter
--- OUTSIDE RECORDS SUMMARY | 2024-06-23 10:57 | XMS_ITS | Encounter Summary ---
Author Organization [facility] [place], Address [address] [place] [address] Phone Care Team Providers Care Fretted Instruments Inspector Name Role Phone Janet Magaña MD Primary Care Provider [phone] Encounter Details Date Type Department Care Team (Late st Contact Info) Description 08/29/2022 Documentation Only [facility], [address] [place] [address] Merrill Ariza, DO [address] [place] [address] Social History Tobacco Use Types [...] on filedocumented in this encounter Care Teams Fretted Instruments Inspector Relationship Specialty Start Date End Date Janet Magaña MD PCP - General 02/23/19 documented as of this encounter
--- OUTSIDE RECORDS SUMMARY | 2024-06-23 10:57 | XMS_ITS | Encounter Summary ---
Author Organization [facility] [place], Address [address] [place] [address] Phone Care Team Providers Care Pet Care Attendant Name Role Phone Janet Magaña MD Primary Care Provider [phone] Encounter Details Date Type Department Care Team (Late st Contact Info) Description 08/05/2022 Documentation Only [facility] [place], [address] [place] [address] Jeffry Santana MD [address] [place] [address] Social History Tobacco Use Types [...] on filedocumented in this encounter Care Teams Pet Care Attendant Relationship Specialty Start Date End Date Janet Magaña MD PCP - General 02/23/19 documented as of this encounter
--- OUTSIDE RECORDS SUMMARY | 2024-06-23 10:57 | XMS_ITS | Encounter Summary ---
Author Organization [facility] [place], Address [address] [place] [address] Phone Care Team Providers Care Emu Farm Worker Name Role Phone Janet Magaña MD Primary Care Provider [phone] Encounter Details Date Type Department Care Team (Late st Contact Info) Description 12/09/2022 Documentation Only [facility] [place], [address] [place] [address] Jeffry Santana MD [address] [place] [address] Social History Tobacco Use Types [...] on filedocumented in this encounter Care Teams Emu Farm Worker Relationship Specialty Start Date End Date Janet Magaña MD PCP - General 02/23/19 documented as of this encounter
--- OUTSIDE RECORDS SUMMARY | 2024-06-23 10:57 | XMS_ITS | Encounter Summary ---
Author Organization [facility] [place], Address [address] [place] [address] Phone Care Team Providers Care Store Team Member Name Role Phone Janet Magaña MD Primary Care Provider [phone] Encounter Details Date Type Department Care Team (Late st Contact Info) Description 12/05/2021 Documentation Only [facility] [place], [address] [place] [address] Jeffry Santana MD [address] [place] [address] Social History Tobacco Use Types [...] on filedocumented in this encounter Care Teams Store Team Member Relationship Specialty Start Date End Date Janet Magaña MD PCP - General 02/23/19 documented as of this encounter
--- OUTSIDE RECORDS SUMMARY | 2024-06-23 10:57 | XMS_ITS | Encounter Summary ---
Author Organization [facility] [place], Address [address] [place] [address] Phone Care Team Providers Care Buying Agent Name Role Phone Janet Magaña MD Primary Care Provider [phone] Encounter Details Date Type Department Care Team (Late st Contact Info) Description 10/03/2023 Orders Only [facility], [address] [place] [address] Jeffry Santana MD [address] [place] [address] Stage 5 chronic kidney disease (HCC) Social [...] (HCC) documented in this encounter Care Teams Buying Agent Relationship Specialty Start Date End Date Janet Magaña MD PCP - General 02/23/19 documented as of this encounter
--- OUTSIDE RECORDS SUMMARY | 2024-06-23 10:57 | XMS_ITS | Encounter Summary ---
Author Organization [facility] [place], Address [address] [place] [address] Phone Care Team Providers Care Medical Insurance Biller Name Role Phone Janet Magaña MD Primary Care Provider [phone] Encounter Details Date Type Department Care Team (Late st Contact Info) Description 03/27/2022 Documentation Only [facility] [place], [address] [place] [address] Jeffry Santana MD [address] [place] [address] Social History Tobacco Use Types [...] on filedocumented in this encounter Care Teams Medical Insurance Biller Relationship Specialty Start Date End Date Janet Magaña MD PCP - General 02/23/19 documented as of this encounter
--- OUTSIDE RECORDS SUMMARY | 2024-06-23 10:57 | XMS_ITS | Encounter Summary ---
Author Organization [facility] [place], Address [address] [place] [address] Phone Care Team Providers Care Control Room Tender Name Role Phone Janet Magaña MD Primary Care Provider [phone] Encounter Details Date Type Department Care Team (Late st Contact Info) Description 11/08/2022 Office Communication [facility] [place], - [place] [address] [facility] [address] [place] [address] Jeffry Santana MD [address] [place] [address] [facility] [id number] Social History Tobacco Use Types Packs/Day Years [...] on filedocumented in this encounter Care Teams Control Room Tender Relationship Specialty Start Date End Date Janet Magaña MD PCP - General 02/23/19 documented as of this encounter
--- OUTSIDE RECORDS SUMMARY | 2024-06-23 10:57 | XMS_ITS | Encounter Summary ---
Author Organization [facility] [place], Address [address] [place] [address] Phone Care Team Providers Care Superintendent Renting Managing Name Role Phone Janet Magaña MD Primary Care Provider [phone] Encounter Details Date Type Department Care Team (Late st Contact Info) Description 08/05/2022 Documentation Only [facility], [address] [place] [address] Jeffry Santana MD [address] [place] [address] Social History Tobacco Use Types [...] on filedocumented in this encounter Care Teams Superintendent Renting Managing Relationship Specialty Start Date End Date Janet Magaña MD PCP - General 02/23/19 documented as of this encounter
--- OUTSIDE RECORDS SUMMARY | 2024-06-23 10:57 | XMS_ITS | Encounter Summary ---
Author Organization [facility] [place], Address [address] [place] [address] Phone Care Team Providers Care Dental Ceramist Helper Name Role Phone Janet Magaña MD Primary Care Provider [phone] Encounter Details Date Type Department Care Team (Late st Contact Info) Description 03/25/2022 Documentation Only [facility] [place], [address] [place] [address] Jeffry Santana MD [address] [place] [address] Social History Tobacco Use Types [...] on filedocumented in this encounter Care Teams Dental Ceramist Helper Relationship Specialty Start Date End Date Janet Magaña MD PCP - General 02/23/19 documented as of this encounter
--- OUTSIDE RECORDS SUMMARY | 2024-06-23 10:57 | XMS_ITS | Encounter Summary ---
Author Organization [facility] [place], Address [address] [place] [address] Phone Care Team Providers Care Stacker Straightener Name Role Phone Janet Magaña MD Primary Care Provider [phone] Reason for Visit * Reason Comments Med Refill Encounter Details Date Type Department Care Team (Late st Contact Info) Description 06/17/2023 Refill [facility] [place], [facility] [address] [facility] [address] [place] [address] Jeffry Santana MD [address] [place] [address] [facility] [place] [address] Social History Tobacco Use Types Packs/Day Years [...] on filedocumented in this encounter Care Teams Stacker Straightener Relationship Specialty Start Date End Date Janet Magaña MD PCP - General 02/23/19 documented as of this encounter
--- OUTSIDE RECORDS SUMMARY | 2024-06-23 10:57 | XMS_ITS | Encounter Summary ---
Author Organization [facility] [place], Address [address] [place] [address] Phone Care Team Providers Care Gun Perforator Name Role Phone Janet Magaña MD Primary Care Provider [phone] Encounter Details Date Type Department Care Team (Late st Contact Info) Description 07/11/2023 Orders Only [facility] [place], [address] [place] [address] Jeffry Santana MD [address] [place] [address] Stage 5 chronic kidney disease (HCC) Social [...] (HCC) documented in this encounter Care Teams Gun Perforator Relationship Specialty Start Date End Date Janet Magaña MD PCP - General 02/23/19 documented as of this encounter
--- OUTSIDE RECORDS SUMMARY | 2024-06-23 10:58 | XMS_ITS | Encounter Summary ---
Author Organization [facility], Address [address] [place] [address] Phone Care Team Providers Care Straightedge Man Name Role Phone Janet Magaña MD Primary Care Provider Encounter Details Date Type Department Care Team (Late st Contact Info) Description 06/10/2024 Orders Only [facility] [address] [place] [phone] Dae Lentz MD [address] [place] [address] [place] [phone] Social History Tobacco Use Types Packs/Day Years [...] Procedure Name Priority Date/Time Associated Diagnosis Comments IMMUNO CHEMISTRY Routine 06/10/2024 HEMATOLOGY Routine 06/10/2024 CHEMISTRY Routine 06/10/2024 CHEMISTRY Routine 06/10/2024 documented in this encounter Results * IMMUNO CHEMISTRY (06/10/2024) Hep B Surface Ag Negative Negative [facility] 06/10/2024 06/11/2024 9:3 5 AM EST Narrative Resulting Agency Comment Specimen source: Serum Dae Lentz MD LAB BLOOD ORDERABLES Final Re sult [facility] See order comments or contact performing lab Unknown, [place] * (ABNORMAL) [facility] (06/10/2024) Pathologist [facility] Creatinine 10.09(H) 0.60 - 1.30 mg/dL [...] 06/11/2024 Unless otherwise specified, test(s) performed at: [facility], [address] [place] [id number] AIRLINE DISPATCHER: Joey Ornelas M.D. For any questions, please call customer service at FREQUENCY:MONTHLY Resulting Agency Comment Specimen source: Serum Dae Lentz MD LAB BLOOD ORDERABLES Edited R esult - Final Performing Organization Address [facility] de Phone Number [facility] See order comments or contact performing lab Unknown, [place] * (ABNORMAL) HEMATOLOGY (06/10/2024) Hemoglobin 13.0(L) 14.0 - 18.0 g/dL [facility] Hemoglobin x 3 39(L) 42.0 - 54.0 % [facility] 06/10/2024 06/11/2024 9:0 0 AM EST Narrative [facility] - 06/11/2024 Unless otherwise specified, test(s) performed at: [facility], [address] [place], [place] [id number] AIRLINE DISPATCHER: Joey Ornelas M.D. For any questions, please call customer service at FREQUENCY:MONTHLY Resulting Agency Comment Specimen source: Blood Dae Lentz MD LAB BLOOD ORDERABLES Final Re sult Performing Organization Address [facility] de Phone Number [employer] See order comments or contact performing lab Unknown, [place] * (ABNORMAL) [facility] (06/10/2024) Pathologist [facility] PTH 528(H) 16 - 80 pg/mL [facility] 06/10/2024 06/11/2024 8:5 5 AM EST Narrative [facility] - 06/11/2024 Unless otherwise specified, test(s) performed at: [facility], [address] [place] [id number] AIRLINE DISPATCHER: Joey Ornelas M.D. For any questions, please call customer service at FREQUENCY:MONTHLY Resulting Agency Comment Specimen source: Plasma Dae Lentz MD LAB BLOOD ORDERABLES Final Re sult Performing Organization Address [facility] de Phone Number [employer] See order comments or contact performing lab Unknown, [place] documented in this encounter Visit Diagnoses Not on filedocumented in this encounter Care Teams Straightedge Man Relationship Specialty Start Date End Date Janet Magaña MD PCP - General 02/23/19 documented as of this encounter
--- OUTSIDE RECORDS SUMMARY | 2024-06-23 10:58 | XMS_ITS | Encounter Summary ---
Author Organization [facility], Address [address] [place] [address] Phone Care Team Providers Care Manager Government Name Role Phone Janet Magaña MD Primary Care Provider [phone] Encounter Details Date Type Department Care Team (Late st Contact Info) Description 06/17/2024 Orders Only [facility] [address] [place] [address] Dae Lentz MD [address] [place] [address] [place] [phone] Social History Tobacco Use Types Packs/Day Years [...] Date/Time Associated Diagnosis Comments HEMATOLOGY Routine 06/17/2024 documented in this encounter Results * (ABNORMAL) HEMATOLOGY (06/17/2024) Hemoglobin 12.8(L) 14.0 - 18.0 g/dL [facility] Hemoglobin x 3 38.4(L) 42.0 - 54.0 % [facility] 06/17/2024 06/19/2024 11: 11 AM EST Narrative [facility] - 06/19/2024 Unless otherwise specified, test(s) performed at: [facility], [address] [place], [place] [id number] REFERRAL RN: Joey Ornelas M.D. For any questions, please call customer service at FREQUENCY:OTHER Resulting Agency Comment Specimen source: Blood us Dae Lentz MD LAB BLOOD ORDERABLES Final Re sult [facility] See order comments or contact performing lab Unknown, [place] documented in this encounter Visit Diagnoses Not on filedocumented in this encounter Care Teams Manager Government Relationship Specialty Start Date End Date Janet Magaña MD PCP - General 02/23/19 documented as of this encounter
--- OUTSIDE RECORDS SUMMARY | 2024-06-23 10:58 | XMS_ITS | Encounter Summary ---
Author Organization [facility] [place], Address [address] [place] [address] Phone Care Team Providers Care Copy Reader Name Role Phone Janet Magaña MD Primary Care Provider [phone] Encounter Details Date Type Department Care Team (Late st Contact Info) Description 06/29/2021 Documentation Only [facility], [address] [place] [address] Jeffry Santana MD [address] [place] [address] Social History Tobacco Use Types [...] on filedocumented in this encounter Care Teams Copy Reader Relationship Specialty Start Date End Date Janet Magaña MD PCP - General 02/23/19 documented as of this encounter
--- OUTSIDE RECORDS SUMMARY | 2024-06-23 10:58 | XMS_ITS | Encounter Summary ---
Author Organization [facility], Address [address] [place] [address] Phone Care Team Providers Care Broomcorn Thresher Name Role Phone Janet Magaña MD Primary Care Provider [phone] Encounter Details Date Type Department Care Team (Late st Contact Info) Description 06/15/2024 Treatment [facility], [address] [place] [address] Cristino Alvarado MD [address] [place] [address] [place] [phone] Social History Tobacco Use Types Packs/Day Years [...] on file documented as of this encounter Miscellaneous Notes * Dialysis Note - Cristino Alvarado MD - 06/15/2024 12:00 AM EST Patient: Joselo Santana : 1960 Note Type: Dialysis Rounds-Basic Service Date: 06/15/2024 This patient was personally seen for a basic visit as part of routine monthly dialysis care for end stage renal disease. Attending Planer Chain Offbearer: CRISTINO ALVARADO Dialysis Location: [facility] Schedule: Tu-Th-Sa Shift: 2 HOME MEDICATIONS [facility] Outpatient Medications atorvastatin 20 mg tablet Take 1 tablet by mouth once a day. doxazosin 2 mg tablet Take 1 tablet by mouth once a day. Januvia 25 mg tablet Take 1 tablet by mouth once a day. losartan 100 mg tablet Take 1 tablet by mouth every night at bedtime. Sevelamer Carbonate Tablet 800 mg tablet Take 3 Tablet By Mouth Three times a day With Meals. Current [facility] Allergies Allergen: No Known Allergies Allergen: No Known Drug Allergies Allergen: No Known Food Allergies DIALYSIS PRESCRIPTION Treatment Data Treatment Date: 06/15/2024 started at: 11:12 AM Dialysate / Machine Temp (prescribed): 36.0*C Dialysate / Machine Temp (actual): 36.0*C BFR (prescribed): 450 BFR (actual): 425 DFR (prescribed): Manual 800 DFR (actual): 800 Prescribed Time: 04:00 EDW (kg): 88.5 Dialyzer: 180NRe Optiflux Dialysate: 2.0 K, 2.50 Ca, 1.0 Mg, 100 Dextrose ([id number]) Sodium: 138 Bicarb: 36 Pre Dialysis Vitals Pre BP Sit: 157/94 Pre Wt (kg): 91.1 EDW Deviation (kg): 2.6 Temp: 98.9*F Current Dialysis Vitals BP Sit: 134/80 AP/DENTURE PROCESSOR: 222/176 Pulse: 80 TREATMENT MEDICATIONS ORDERS Heparin Sodium (Porcine) 1,000 Units/mL Systemic 500 units IVP Every Treatment 05/22/2024 - 05/21/2025 Heparin Sodium (Porcine) 1,000 Units/mL Systemic 4000 units IVP Every Treatment 05/20/2024 - 05/19/2025 BP AND FLUID ASSESSMENT Post BP Sit 135/84 - 06/12/2024 148/85 - 06/10/2024 140/80 - 06/08/2024 Post Wt (kg) 88.5 - 06/12/2024 88.8 - 06/10/2024 88.7 - 06/08/2024 EDW (kg) 88.5 - 06/12/2024 88.5 - 06/10/2024 88.5 - 06/08/2024 Deviation (kg) 0.0 - 06/12/2024 0.3 - 06/10/2024 0.2 - 06/08/2024 ADEQUACY ASSESSMENT Missed Treatments 0 - Last 30 days 0 - Last 60 days spKt/V (Daugirdas II) 1.40 (05/27/24) 1.47 (04/22/24) 1.47 (03/25/24) eKdrt/V 1.23 (05/27/24) 1.29 (04/22/24) 1.30 (03/25/24) % Urea Reduction 69 (05/27/24) 71 (04/22/24) 72 (03/25/24) BUN 52 (05/27/24) 54 (05/04/24) 63 (04/22/24) BUN Post Dialysis 16 (05/27/24) 18 (04/22/24) 15 (03/25/24) Creatinine 10.09 (06/10/24) 9.82 (05/06/24) 9.94 (05/04/24) Bicarbonate (CO2) 23 (06/10/24) 21 (05/06/24) 21 (05/04/24) Sodium 141 (06/10/24) 137 (05/06/24) 139 (05/04/24) ACCESS ASSESSMENT AVFistula Standard Left Upper Arm Active (In Use) - 08/30/2023 Placed - 03/06/2023 Access Flow 1553 (05/25/24) 1562 (05/08/24) 1477 (04/27/24) ANEMIA ASSESSMENT Hemoglobin 13.0 (06/10/24) 13.5 (06/03/24) 13.1 (05/27/24) Iron Saturation (TSat) 32 (06/10/24) 26 (05/06/24) 14 (04/08/24) Ferritin 121 (06/10/24) 138 (05/06/24) 216 (04/08/24) Iron 105 (06/10/24) 88 (05/06/24) 43 (04/08/24) TIBC 330 (06/10/24) 336 (05/06/24) 309 (04/08/24) Reticulocyte Hemoglobin 32.1 (05/06/24) 33.5 (02/05/24) 33.7 (11/13/23) MCV 96 (05/06/24) 94 (02/05/24) 90 (11/13/23) Platelets 92 (11/13/23) BMM ASSESSMENT Calcium 9.3 06/10/24 9.4 05/06/24 9.5 05/04/24 Corrected Calcium 9.2 06/10/24 9.1 05/06/24 8.8 04/08/24 Phosphorus 5.9 06/10/24 5.9 05/15/24 6.1 05/06/24 Calcium Phosphorus Product 55 06/10/24 57 05/06/24 45 04/08/24 PTH 528 06/10/24 614 05/06/24 516 04/08/24 Vitamin D, 25-OH, Total 57.1 05/06/24 60.2 11/13/23 85.0 09/11/23 Magnesium 2.2 05/06/24 2.1 04/08/24 1.9 03/11/24 Alkaline Phosphatase 69 06/10/24 70 05/06/24 61 04/08/24 Aluminum <5 05/06/24 NUTRITION ASSESSMENT Albumin 4.1 06/10/24 4.4 05/06/24 4.4 05/04/24 Potassium 4.8 06/10/24 4.8 05/06/24 5.1 05/04/24 eNPCR 0.84 05/27/24 1.00 04/22/24 0.88 03/25/24 Hemoglobin A1C 5.9 05/06/24 5.7 02/05/24 5.5 08/07/23 ADDITIONAL LABS WBC 7.43 (05/06/24) 7.65 (02/05/24) 7.41 (11/13/23) Hepatitis B Surface Ab 101 (05/06/24) 209 (02/17/24) 267 (11/13/23) ADDITIONAL COMMENT COMMENTS: COMMENTS: Monthly Comprehensive Note Patient is stable Medications reviewed Physical Exam Vital signs: reviewed Lungs: clear Edema: none Impression 1. Adequacy: KT/V was assessed and the dialysis prescription was adjusted as needed. 2. Access: Dialysis access function is acceptable. 3. Hypertension: Blood pressure control and volume status are at goal. 4. Anemia: Labs reviewed and adjustments to regimen made according to anemia management protocol. 5. Mineral Bone Disease: Labs reviewed. Diet and medication adjustment as per protocol. Phosphorus is high encouraged to take 2 renvelas with each meal 6. Nutrition: Labs reviewed. Dietary adjustments made in conjunction with ship's pilot. 7. Transplant: The patient is being evaluated for a kidney transplant. BP 1660/100, high at home too, start losartan 100 mg daily Signed by: CRISTINO ALVARADO MD on 06/15/2024 at 02:59:08 PM Transcribed by: CRISTINO ALVARADO MD on 06/15/2024 at 02:59:08 PM documented in this encounter Plan of Treatment Not on file documented as of this encounter Visit Diagnoses Not on filedocumented in this encounter Care Teams Broomcorn Thresher Relationship Specialty Start Date End Date Janet Magaña MD PCP - General 02/23/19 documented as of this encounter
--- OUTSIDE RECORDS SUMMARY | 2024-06-23 10:58 | XMS_ITS | Encounter Summary ---
Author Organization [facility], Address [address] [place] [address] Phone Care Team Providers Care Counter Control Operator Name Role Phone Janet Magaña MD Primary Care Provider [phone] Encounter Details Date Type Department Care Team (Late st Contact Info) Description 09/05/2023 Orders Only [facility], [address] [place] [address] Jeffry Santana MD [address] [place] [phone] Stage 5 chronic kidney disease (HCC) Social [...] (HCC) documented in this encounter Care Teams Counter Control Operator Relationship Specialty Start Date End Date Janet Magaña MD PCP - General 02/23/19 documented as of this encounter
--- OUTSIDE RECORDS SUMMARY | 2024-06-23 10:58 | XMS_ITS | Encounter Summary ---
Author Organization [facility], Address [address] [place] [address] Phone Care Team Providers Care Blast Furnace Helper Name Role Phone Janet Magaña MD Primary Care Provider [phone] Encounter Details Date Type Department Care Team (Late st Contact Info) Description 06/01/2024 Treatment [facility], [address] [place] [address] Cristino Alvarado MD [address] [place] [address] [place] [phone] Social History Tobacco Use Types Packs/Day Years [...] Dialysis Note - Cristino Alvarado MD - 06/01/2024 12:00 AM EST Patient: Joselo Santana : 1960 Note Type: Dialysis Rounds-Comp Service Date: 06/01/2024 This patient was personally seen for a complete visit as part of routine monthly dialysis care for end stage renal disease. Attending Die Finisher Forging: CRISTINO ALVARADO Dialysis Location: [facility] Schedule: Tu-Th-Sa Shift: 2 HOME MEDICATIONS Current [facility] Outpatient Medications atorvastatin 20 mg tablet Take 1 tablet by mouth once a day. doxazosin 2 mg tablet Take 1 tablet by mouth once a day. Januvia 25 mg tablet Take 1 tablet by mouth once a day. Sevelamer Carbonate Tablet 800 mg tablet Take 3 Tablet By Mouth Three times a day With Meals. Current [facility] Allergies Allergen: No Known Allergies Allergen: No Known Drug Allergies Allergen: No Known Food Allergies DIALYSIS PRESCRIPTION Treatment Data Treatment Date: 06/01/2024 started at: 11:44 AM Dialysate / Machine Temp (prescribed): 36.0*C Dialysate / Machine Temp (actual): 36.0*C BFR (prescribed): 450 BFR (average delivered): 460 DFR (prescribed): Manual 800 DFR (average delivered): 800 Prescribed Time: 04:00 Actual Time: 04:02 EDW (kg): 88.5 Dialyzer: 180NRe Optiflux Dialysate: 2.0 K, 2.50 Ca, 1.0 Mg, 100 Dextrose ([id number]) Sodium: 138 Bicarb: 36 Pre Dialysis Vitals Pre BP Sit: 185/93 Pre Wt (kg): 91.0 EDW Deviation (kg): 2.5 Temp: 98.0*F Post Dialysis Vitals Post BP Sit: 138/80 Post Wt (kg): 88.5 TREATMENT MEDICATIONS ORDERS Heparin Sodium (Porcine) 1,000 Units/mL Systemic 500 units IVP Every Treatment 05/22/2024 - 05/21/2025 Heparin Sodium (Porcine) 1,000 Units/mL Systemic 4000 units IVP Every Treatment 05/20/2024 - 05/19/2025 Vitamin D (Calcitriol) Oral 1.25 mcg ORAL Every Treatment 05/13/2024 - 05/12/2025 BP AND FLUID ASSESSMENT Post BP Sit 138/80 - 06/01/2024 146/83 - 05/29/2024 132/91 - 05/27/2024 Post Wt (kg) 88.5 - 06/01/2024 88.6 - 05/29/2024 88.6 - 05/27/2024 EDW (kg) 88.5 - 06/01/2024 88.5 - 05/29/2024 88.5 - 05/27/2024 Deviation (kg) 0.0 - 06/01/2024 0.1 - 05/29/2024 0.1 - 05/27/2024 ADEQUACY ASSESSMENT Missed Treatments 0 - Last 30 days 0 - Last 60 days spKt/V (Daugirdas II) 1.47 (04/22/24) 1.47 (03/25/24) 1.38 (02/26/24) eKdrt/V 1.29 (04/22/24) 1.30 (03/25/24) 1.22 (02/26/24) % Urea Reduction 69 (05/27/24) 71 (04/22/24) 72 (03/25/24) BUN 52 (05/27/24) 54 (05/04/24) 63 (04/22/24) BUN Post Dialysis 16 (05/27/24) 18 (04/22/24) 15 (03/25/24) Creatinine 9.82 (05/06/24) 9.94 (05/04/24) 9.76 (04/08/24) Bicarbonate (CO2) 21 (05/06/24) 21 (05/04/24) 24 (04/08/24) Sodium 137 (05/06/24) 139 (05/04/24) 138 (04/08/24) ACCESS ASSESSMENT AVFistula Standard Left Upper Arm Active (In Use) - 08/30/2023 Placed - 03/06/2023 Access Flow 1553 (05/25/24) 1562 (05/08/24) 1477 (04/27/24) ANEMIA ASSESSMENT Hemoglobin 13.1 (05/27/24) 13.0 (05/20/24) 13.3 (05/15/24) Iron Saturation (TSat) 26 (05/06/24) 14 (04/08/24) 27 (03/11/24) Ferritin 138 (05/06/24) 216 (04/08/24) 149 (03/11/24) Iron 88 (05/06/24) 43 (04/08/24) 100 (03/11/24) TIBC 336 (05/06/24) 309 (04/08/24) 364 (03/11/24) Reticulocyte Hemoglobin 32.1 (05/06/24) 33.5 (02/05/24) 33.7 (11/13/23) MCV 96 (05/06/24) 94 (02/05/24) 90 (11/13/23) Platelets 92 (11/13/23) BMM ASSESSMENT Calcium 9.4 05/06/24 9.5 05/04/24 8.9 04/08/24 Corrected Calcium 9.1 05/06/24 8.8 04/08/24 8.9 03/11/24 Phosphorus 5.9 05/15/24 6.1 05/06/24 5.5 05/04/24 Phosphorus, Serum 3.9 06/16/23 Calcium Phosphorus Product 57 05/06/24 45 04/08/24 61 03/11/24 PTH 614 05/06/24 516 04/08/24 692 03/11/24 Vitamin D, 25-OH, Total 57.1 05/06/24 60.2 11/13/23 85.0 09/11/23 Magnesium 2.2 05/06/24 2.1 04/08/24 1.9 03/11/24 Alkaline Phosphatase 70 05/06/24 61 04/08/24 59 03/11/24 Aluminum <5 05/06/24 NUTRITION ASSESSMENT Albumin 4.4 05/06/24 4.4 05/04/24 4.1 04/08/24 Potassium 4.8 05/06/24 5.1 05/04/24 4.5 04/08/24 eNPCR 1.00 04/22/24 0.88 03/25/24 0.79 02/26/24 Hemoglobin A1C 5.9 05/06/24 5.7 02/05/24 5.5 [...] reviewed. Dietary adjustments made in conjunction with decorating inspector. 7. Transplant: The patient is being evaluated for a kidney transplant. Signed by: CRISTINO ALVARADO MD on 06/02/2024 at 11:15:29 AM Transcribed by: CRISTINO ALVARADO MD on 06/02/2024 at 11:15:29 AM documented in this encounter Plan of Treatment Not on file documented as of this encounter Visit Diagnoses Not on filedocumented in this encounter Care Teams Blast Furnace Helper Relationship Specialty Start Date End Date Janet Magaña MD PCP - General 02/23/19 documented as of this encounter
--- OUTSIDE RECORDS SUMMARY | 2024-06-23 10:58 | XMS_ITS | Encounter Summary ---
Author Organization [facility], Address [address] [place] [address] Phone Care Team Providers Care Veneer Taper Name Role Phone Janet Magaña MD Primary Care Provider [phone] Encounter Details Date Type Department Care Team (Late st Contact Info) Description 08/08/2023 Orders Only [facility], [address] [place] [address] Jeffry Santana MD [address] [place] [phone] Stage 5 chronic kidney disease (HCC) Social [...] (HCC) documented in this encounter Care Teams Veneer Taper Relationship Specialty Start Date End Date Janet Magaña MD PCP - General 02/23/19 documented as of this encounter
--- OUTSIDE RECORDS SUMMARY | 2024-06-23 10:58 | XMS_ITS | Encounter Summary ---
Author Organization [facility] [place], Address [address] [place] [address] Phone Care Team Providers Care Stoneworker Name Role Phone Janet Magaña MD Primary Care Provider Encounter Details Date Type Department Care Team (Late st Contact Info) Description 06/08/2024 Treatment [facility], [address] [place] [address] Anna Stuart FNP-C [address] [place] [address] [place] [address] Social History Tobacco Use Types Packs/Day Years [...] encounter Miscellaneous Notes * Dialysis Note - Anna Stuart FNP-C - 06/08/2024 12:00 AM EST Patient: NEGRITA BRAGA, 1960, 64y, M Dialysis Location: [facility] Attending Molding Engineer: Dae Lentz Service Date: 06/08/2024 Service Provider: Anna Stuart NP I met face to face with the patient today. 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 Access patent. VS noted. RRR with S1 and S2. LS CTA Bilaterally. nocomplaints today. DIALYSIS PRESCRIPTION IHD 3x Week Start date: 05/08/24 Dialyzer: 180NRe Optiflux BFR: 450 DFR: Manual 800 Potassium: 2.0 Sodium: 138 EDW: 88.5 Duration: 4:00 Calcium: 2.50 Bicarb: 36 Rx updated on: 05/08/2024 TREATMENT ASSESSMENT BP Stand Pre 06/05/2024: 145/95 06/03/2024: 128/77 06/01/2024: 152/86 BP Sit Pre 06/05/2024: 155/91 06/03/2024: 162/89 06/01/2024: 185/93 BP Stand Post 06/05/2024: 122/86 06/03/2024: 111/86 06/01/2024: 102/65 BP Sit Post 06/05/2024: 160/92 06/03/2024: 122/76 06/01/2024: 138/80 Tx Duration 06/05/2024: 4:05 06/03/2024: 3:56 06/01/2024: 4:02 Missed Treatments 0 - last 30 days 0 - last 60 days FLUID ASSESSMENT EDW (kg) 06/05/2024: 88.5 06/03/2024: 88.5 06/01/2024: 88.5 Weight Pre (kg) 06/05/2024: 91.3 06/03/2024: 90.4 06/01/2024: 91.0 Weight Post (kg) 06/05/2024: 88.6 06/03/2024: 88.5 06/01/2024: 88.5 PWV (kg) 06/05/2024: 0.1 06/03/2024: 0.0 06/01/2024: 0.0 UF Rate (mL/kg/hr) 06/05/2024: 7.5 06/03/2024: 5.5 06/01/2024: 7 ADEQUACY ASSESSMENT spKt/V, URR 05/27/2024: 1.4, 69.0 04/22/2024: 1.47, 71.0 03/25/2024: 1.47, 72.0 ACCESS ASSESSMENT Access Type: AVFistula Access SubType: Standard Access Status: Active (In Use) - 08/30/2023 Access Location: Left Upper Arm Created: 03/06/2023 Flow 05/25/2024: 1553 05/08/2024: 1562 04/27/2024: 1477 ANEMIA ASSESSMENT HGB 06/03/2024: 13.5 05/27/2024: 13.1 05/20/2024: 13.0 Ferritin 05/06/2024: 138.0 04/08/2024: 216.0 03/11/2024: 149.0 BMM ASSESSMENT PTH, Intact 05/06/2024: 614.0 04/08/2024: 516.0 03/11/2024: 692.0 Calcium, Phosphorus 05/15/2024: -, 5.9 05/06/2024: 9.4, 6.1 04/08/2024: 8.9, 5.1 Vitamin D (Calcitriol) Oral (mcg) 06/05/2024: 1.25 06/03/2024: 1.25 06/01/2024: 1.25 NUTRITION ASSESSMENT Potassium, Albumin 05/06/2024: 4.8, 4.4 04/08/2024: 4.5, 4.1 03/11/2024: 4.5, 4.4 eNPCR 05/27/2024: 0.84 04/22/2024: 1.0 03/25/2024: 0.88 DIAGNOSIS Chief Complaint: N18.6 End stage renal disease Patient data updated 06/08/2024 at 2:08 PM Signed By: Anna Stuart NP on 06/08/2024 2:08:27 PM documented in this encounter Plan of Treatment Not on file documented as of this encounter Visit Diagnoses Not on filedocumented in this encounter Care Teams Stoneworker Relationship Specialty Start Date End Date Janet Magaña MD PCP - General 02/23/19 documented as of this encounter
--- OUTSIDE RECORDS SUMMARY | 2024-06-23 10:58 | XMS_ITS | Encounter Summary ---
Author Organization [facility] [place], Address [address] [place] [address] Phone Care Team Providers Care Utility Worker Roller Shop Name Role Phone Janet Magaña MD Primary Care Provider [phone] Encounter Details Date Type Department Care Team (Late st Contact Info) Description 05/27/2024 Orders Only [facility] [address] [place] [phone] Dae Lentz MD [address] [place] [address] [place] [id number] Social History Tobacco Use Types Packs/Day Years [...] Procedure Name Priority Date/Time Associated Diagnosis Comments HD KINETICS Routine 05/27/2024 POST CHEMISTRY Routine 05/27/2024 HEMATOLOGY Routine 05/27/2024 CHEMISTRY Routine 05/27/2024 [facility] RESULTS Routine 05/27/2024 documented in this encounter Results * [facility] Lab Results (05/27/2024) eKdrt/V 1.23 [facility] PCR 69.59 [facility] spKt/V Gotch 1.41 [facility] eKt/V ([place]) 1.22 [facility] spKt/V (Daugirdas II) 1.40 [facility] nPCR_HD 0.90 [facility] WSTDKT/V 2.3 [facility] eKt/V Gotch 1.23 [facility] eNPCR 0.84 [facility] 05/27/2024 05/27/2024 [facility] Ordering Provider LAB BLOOD ORDERABLES Final Result Performing Organization Address [facility] de Phone Number [facility] Contact Performing lab Unknown, [place] * HD KINETICS (05/27/2024) % Urea Reduction 69 65 - 80 % [facility] 05/27/2024 06/01/2024 10: 29 AM EST Narrative Resulting Agency Comment Specimen source: Plasma Dae Lentz MD LAB BLOOD ORDERABLES Final Re sult Performing Organization Address [facility] de Phone Number [facility] See order comments or contact performing lab Unknown, [place] * POST CHEMISTRY (05/27/2024) BUN Post Dialysis 16 6 - 19 mg/dL [facility] 05/27/2024 06/01/2024 10: 29 AM EST Narrative [facility] - 06/01/2024 Unless otherwise specified, test(s) performed at: [facility], [address] [place] [id number] DIRECTOR OF EVENT SALES: Joey Ornelas M.D. For any questions, please call customer service at FREQUENCY:OTHER Resulting Agency Comment Specimen source: Plasma Dae Lentz MD LAB BLOOD ORDERABLES Final Re sult Performing Organization Address [facility] Co de Phone Number [facility] See order comments or contact performing lab Unknown, [place] * (ABNORMAL) [facility] Chemistry (05/27/2024) BUN 52(H) 6 - 19 mg/dL [facility] 05/27/2024 05/29/2024 1:0 9 PM EST Narrative [facility] - 05/29/2024 Unless otherwise specified, test(s) performed at: [facility], [address] [place] [address] DIRECTOR OF EVENT SALES: Joey Ornelas M.D. For any questions, please call customer service at FREQUENCY:OTHER Resulting Agency Comment Specimen source: Serum Dae Lentz MD LAB BLOOD ORDERABLES Final Re sult Performing Organization Address [facility] Co de Phone Number [facility] See order comments or contact performing lab Unknown, [place] * (ABNORMAL) HEMATOLOGY (05/27/2024) Hemoglobin 13.1(L) 14.0 - 18.0 g/dL [facility] Hemoglobin x 3 39.3(L) 42.0 - 54.0 % [facility] 05/27/2024 05/29/2024 11: 13 AM EST Narrative [facility] - 05/29/2024 Unless otherwise specified, test(s) performed at: [facility], [address] [place] [address] DIRECTOR OF EVENT SALES: Joey Ornelas M.D. For any questions, please call customer service at FREQUENCY:OTHER Resulting Agency Comment Specimen source: Blood Dae Lentz MD LAB BLOOD ORDERABLES Final Re sult Performing Organization Address City/[facility]/ZIP Co de Phone Number [facility] See order comments or contact performing lab Unknown, [place] documented in this encounter Visit Diagnoses Not on filedocumented in this encounter Care Teams Utility Worker Roller Shop Relationship Specialty Start Date End Date Janet Magaña MD PCP - General 02/23/19 documented as of this encounter
--- OUTSIDE RECORDS SUMMARY | 2024-06-23 10:58 | XMS_ITS | Encounter Summary ---
Author Organization [facility] [place], Address [address] [place] [address] Phone Care Team Providers Care Nurse Substance Abuse Name Role Phone Janet Magaña MD Primary Care Provider [phone] Encounter Details Date Type Department Care Team (Late st Contact Info) Description 06/03/2024 Orders Only [facility] [address] [place] [address] Dae Lentz MD [address] [place] [address] [place] [phone] Social History Tobacco Use Types Packs/Day Years [...] Priority Date/Time Associated Diagnosis Comments HEMATOLOGY Routine 06/03/2024 documented in this encounter Results * (ABNORMAL) HEMATOLOGY (06/03/2024) Hemoglobin 13.5(L) 14.0 - 18.0 g/dL [facility] Hemoglobin x 3 40.5(L) 42.0 - 54.0 % [facility] 06/03/2024 06/05/2024 12: 00 PM EST Narrative EMER[facility] - 06/05/2024 Unless otherwise specified, test(s) performed at: [facility], [address] [place], [place] [id number] SUPERVISOR ORNAMENTAL IRONWORKING: Joey Ornelas M.D. For any questions, please call customer service at FREQUENCY:OTHER Resulting Agency Comment Specimen source: Blood us Dae Lentz MD LAB BLOOD ORDERABLES Final Re sult [facility] See order comments or contact performing lab Unknown, [place] documented in this encounter Visit Diagnoses Not on filedocumented in this encounter Care Teams Nurse Substance Abuse Relationship Specialty Start Date End Date Janet Magaña MD PCP - General 02/23/19 documented as of this encounter
--- OUTSIDE RECORDS SUMMARY | 2024-06-23 10:58 | XMS_ITS | Encounter Summary ---
Author Organization [facility] [place], Address [address] [place] [address] Phone Care Team Providers Care Medical Insurance Claims Specialist Name Role Phone Janet Magaña MD Primary Care Provider [phone] Encounter Details Date Type Department Care Team (Late st Contact Info) Description 05/25/2024 Treatment [facility], [address] [place] [address] Anna Kimble FNP-C [address] [place] [address] [place] [phone] Social History Tobacco Use Types Packs/Day Years [...] Miscellaneous Notes * Dialysis Note - Anna Kimble FNP-C - 05/25/2024 12:00 AM EST Patient: Joselo Santana : 1960 Note Type: Dialysis Rounds-Basic Service Date: 05/25/2024 This patient was personally seen for a basic visit as part of routine monthly dialysis care for end stage renal disease. Attending Back Pad Inspector: ABDIRASHID ALVARADO Dialysis Location: [facility] Schedule: Shift: 2 HOME [facility]S [facility] atorvastatin 20 mg tablet Take 1 tablet by mouth once a day. [.] doxazosin 2 mg tablet Take 1 tablet by mouth once a day. Januvia 25 mg tablet Take 1 tablet by mouth once a day. Sevelamer Carbonate Tablet 800 mg tablet Take 3 Tablet By Mouth Three times a day With Meals. Current [facility] Allergies Allergen: No Known Allergies Allergen: No Known Drug Allergies Allergen: No Known Food Allergies DIALYSIS PRESCRIPTION Treatment Data Treatment Date: 05/25/2024 started at: 11:51 AM Dialysate / Machine Temp (prescribed): 36.0*C Dialysate / Machine Temp (actual): 35.9*C BFR (prescribed): 450 BFR (average delivered): 450 DFR (prescribed): Manual 800 DFR (average delivered): 800 Prescribed Time: 04:00 Actual Time: 04:02 EDW (kg): 88.5 Dialyzer: 180NRe Optiflux Dialysate: 2.0 K, 2.50 Ca, 1.0 Mg, 100 Dextrose ([id number]) Sodium: 138 Bicarb: 36 Pre Dialysis Vitals Pre BP Sit: 157/101 Pre Wt (kg): 91.2 EDW Deviation (kg): 2.7 Temp: 97.4*F Post Dialysis Vitals Post BP Sit: 154/57 Post Wt (kg): 88.1 TREATMENT MEDICATIONS ORDERS Heparin Sodium (Porcine) 1,000 Units/mL Systemic 500 units IVP Every Treatment 05/22/2024 - 05/21/2025 Heparin Sodium (Porcine) 1,000 Units/mL Systemic 4000 units IVP Every Treatment 05/20/2024 - 05/19/2025 Vitamin D (Calcitriol) Oral 1.25 mcg ORAL Every Treatment 05/13/2024 - 05/12/2025 BP AND FLUID ASSESSMENT Post BP Sit 154/57 - 05/25/2024 145/98 - 05/22/2024 140/88 - 05/20/2024 Post Wt (kg) 88.1 - 05/25/2024 88.6 - 05/22/2024 88.7 - 05/20/2024 EDW (kg) 88.5 - 05/25/2024 88.5 - 05/22/2024 88.5 - 05/20/2024 Deviation (kg) -0.4 - 05/25/2024 0.1 - 05/22/2024 0.2 - 05/20/2024 ADEQUACY ASSESSMENT Missed Treatments 0 - Last 30 days 0 - Last 60 days spKt/V (Daugirdas II) 1.47 (04/22/24) 1.47 (03/25/24) 1.38 (02/26/24) eKdrt/V 1.29 (04/22/24) 1.30 (03/25/24) 1.22 (02/26/24) % Urea Reduction 71 (04/22/24) 72 (03/25/24) 69 (02/26/24) BUN 54 (05/04/24) 63 (04/22/24) 53 (03/25/24) BUN Post Dialysis 18 (04/22/24) 15 (03/25/24) 15 (02/26/24) Creatinine 9.82 (05/06/24) 9.94 (05/04/24) 9.76 (04/08/24) Bicarbonate (CO2) 21 (05/06/24) 21 (05/04/24) 24 (04/08/24) Sodium 137 (05/06/24) 139 (05/04/24) 138 (04/08/24) ACCESS ASSESSMENT AVFistula Standard Left Upper Arm Active (In Use) - 08/30/2023 Placed - 03/06/2023 Access Flow 1553 (05/25/24) 1562 (05/08/24) 1477 (04/27/24) ANEMIA ASSESSMENT Hemoglobin 13.0 (05/20/24) 13.3 (05/15/24) 13.0 (05/06/24) Iron Saturation (TSat) 26 (05/06/24) 14 (04/08/24) [...] reviewed. Dietary adjustments made in conjunction with apartment manager. 7. Transplant: The patient is being evaluated for a kidney transplant. Signed by: ANNA KIMBLE FNP-C on 05/26/2024 at 07:16:22 AM Transcribed by: ANNA KIMBLE FNP-C on 05/26/2024 at 07:16:22 AM documented in this encounter Plan of Treatment Not on file documented as of this encounter Visit Diagnoses Not on filedocumented in this encounter Care Teams Medical Insurance Claims Specialist Relationship Specialty Start Date End Date Janet Magaña MD PCP - General 02/23/19 documented as of this encounter
--- OUTSIDE RECORDS SUMMARY | 2024-06-23 10:58 | XMS_ITS | Encounter Summary ---
Author Organization [facility] [place], Address [address] [place] [address] Phone Care Team Providers Care Mattress And Foundation Sewer Name Role Phone Janet Magñaa MD Primary Care Provider [phone] Encounter Details Date Type Department Care Team (Late st Contact Info) Description 06/22/2024 Treatment [facility], [address] [place] [address] Cristino Alvarado MD [address] [place] [address] [place] [phone] End stage renal disease; Dependence on renal dialysis Social History Tobacco Use Types Packs/Day Years [...] Dialysis Note - Cristino Alvarado MD - 06/22/2024 12:00 AM EST Patient: Joselo Santana : 1960 Note Type: Dialysis Rounds-Comp Service Date: 06/22/2024 This patient was personally seen for a complete visit as part of routine monthly dialysis care for end stage renal disease. Attending Head Of Precision Targeting: CRISTINO ALVARADO MD Dialysis Location: [facility] Schedule: Shift: 2 HOME MEDICATIONS Current [facility] Outpatient Medications atorvastatin 20 mg tablet [...] Three times a day With Meals. Current [facility] Allergies Allergen: No Known Allergies Allergen: No Known Drug Allergies Allergen: No Known Food Allergies DIALYSIS PRESCRIPTION Treatment Data Treatment Date: 06/22/2024 started at: 11:09 AM Dialysate / Machine Temp (prescribed): 36.0*C Dialysate / Machine Temp (actual): 36.0*C BFR (prescribed): 450 BFR (average delivered): 430 DFR (prescribed): Manual 800 DFR (average delivered): 800 Prescribed Time: 04:00 Actual Time: 04:02 EDW (kg): 88.5 Dialyzer: 180NRe Optiflux Dialysate: 2.0 K, 2.50 Ca, 1.0 Mg, 100 Dextrose ([id number]) Sodium: 138 Bicarb: 36 Pre Dialysis Vitals Pre BP Sit: 114/77 Pre Wt (kg): 90.1 EDW Deviation (kg): 1.6 Temp: 97.0*F Post Dialysis Vitals Post BP Sit: 129/77 Post Wt (kg): 88.5 TREATMENT MEDICATIONS ORDERS Heparin Sodium (Porcine) 1,000 Units/mL Systemic 500 units IVP Every Treatment 05/22/2024 - 05/21/2025 Heparin Sodium (Porcine) 1,000 Units/mL Systemic 4000 units IVP Every Treatment 05/20/2024 - 05/19/2025 Vitamin D (Calcitriol) Oral 1.50 mcg ORAL Every Treatment 06/15/2024 - 06/14/2025 BP AND FLUID ASSESSMENT Post BP Sit 129/77 - 06/22/2024 126/73 - 06/19/2024 148/86 - 06/17/2024 Post Wt (kg) 88.5 - 06/22/2024 88.4 - 06/19/2024 88.5 - 06/17/2024 EDW (kg) 88.5 - 06/22/2024 88.5 - 06/19/2024 88.5 - 06/17/2024 Deviation (kg) 0.0 - 06/22/2024 -0.1 - 06/19/2024 0.0 - 06/17/2024 ADEQUACY ASSESSMENT Missed Treatments 0 - Last [...] - 08/30/2023 Placed - 03/06/2023 Access Flow 1540 (06/22/24) 1553 (05/25/24) 1562 (05/08/24) ANEMIA ASSESSMENT Hemoglobin 12.8 (06/17/24) 13.0 (06/10/24) 13.5 (06/03/24) Iron Saturation (TSat) 32 (06/10/24) 26 (05/06/24) [...] Monthly Comprehensive Note Patient is stable Medications reviewer Physical Exam Vital signs: reviewed Lungs: clear [...] reviewed. Dietary adjustments made in conjunction with school psychologist. 7. Transplant: The patient is being evaluated for a kidney transplant. BP 1660/100, high at home too, start losartan 100 mg daily 3/4: stable BP seems to be better, same HD Rx Signed by: CRISTINO ALVARADO MD on 06/22/2024 at 05:32:25 PM documented in this encounter Plan of Treatment Not on file documented as of this encounter Visit Diagnoses Diagnosis End stage renal disease Dependence on renal dialysis documented in this encounter Care Teams Mattress And Foundation Sewer Relationship Specialty Start Date End Date Janet Magaña MD PCP - General 02/23/19 documented as of this encounter
== END 2024-06-23 09:38 | disposition home or self-care (01) ==
LOC: HO.HHCX 09:37
PROVIDERS: Visit Provider Family Medicine
DX: M25.561 Pain in right knee (principal)
CPT/HCPCS: 73562

== ENCOUNTER → 2024-06-23 09:38 | Outpatient (BNV) | payer BC, SELFPAY | PROVIDERS: Visit Provider Radiology Diagnostic Radiology | DX: M76.891 Other specified enthesopathies of right lower limb, excluding foot (principal) | CPT/HCPCS: 73562 ==

== ENCOUNTER 2025-01-12 13:14 | Outpatient (REF) | payer BC, SELFPAY ==
--- OUTSIDE RECORDS SUMMARY | 2022-05-16 19:10 | XMS_ITS | Encounter Summary ---
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 Not on smith e 08/17/2022 Are you concerned about learning? Not on file 08/17/2022 No 08/17/2022 No 08/17/2022 Digital Access Answer Date Recorded No 09/15/2022 No 09/15/2022 Reliable internet access at home? Not on file 09/15/2022 Device with a working camera? Not on file Sex and Gender Information Value Date Recorded Sex Assigned at Not on file Legal Sex Male 5:04 PM EST Gender Identity Not on file Sexual Orientation Not on file documented as of this encounter Plan of Treatment Not on file documented as of this encounter Procedures Procedure Name Priority Date/Time Associated Diagnosis Comments XR WRIST 3 OR MORE VIEWS (RIGHT) Urgent/patient waiting 05/16/2022 6:15 PM EST Acute pain of right wrist documented in this encounter Results * XR WRIST 3 OR MORE VIEWS (RIGHT) (05/16/2022 6:15 PM EST) Anatomical Region Laterality Modality Wrist Right Computed Radiogr aphy 05/16/2022 6:25 PM EST Impressions 05/16/2022 6:27 PM EST No fracture or dislocation. Narrative 05/16/2022 6:27 PM EST XR WRIST 3 OR MORE VIEWS (RIGHT) COMPARISON: None FINDINGS: No fracture. Normal alignment. No soft tissue swelling. Procedure Note Christos Barkley MD, TINO - 05/16/2022 XR WRIST 3 OR MORE VIEWS (RIGHT) COMPARISON: None FINDINGS: No fracture. Normal alignment. No soft tissue swelling. IMPRESSION: No fracture or dislocation. 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 It is not the complete legal health record.[facility]
--- OUTSIDE RECORDS SUMMARY | 2025-01-12 15:37 | XMS_ITS | Encounter Summary ---
Author Organization [facility] [place], Address [address] [place] [address] Phone Care Team Providers Care Map Colorer Name Role Phone Janet Magaña MD Primary Care Provider [phone] Encounter Details Date Type Department Care Team (Late st Contact Info) Description 12/05/2021 Documentation Only [facility] [place], [address] [place] [address] Jeffry Santana MD [address] [place] [address] Social History Tobacco Use Types [...] on filedocumented in this encounter Care Teams Map Colorer Relationship Specialty Start Date End Date Janet Magaña MD PCP - General 02/23/19 documented as of this encounter
--- OUTSIDE RECORDS SUMMARY | 2025-01-12 15:37 | XMS_ITS | Encounter Summary ---
Author Organization [facility] [place], Address [address] [place] [address] Phone Care Team Providers Care Heating And Cooling Technician Name Role Phone Janet Magaña MD Primary Care Provider [phone] Encounter Details Date Type Department Care Team (Late st Contact Info) Description 11/08/2022 Office Communication [facility] [place], - [place] [address] [facility] [address] [place] [address] Jeffry Santana MD [address] [place] [address] [facility] [place] [phone] Social History Tobacco Use Types Packs/Day Years [...] on filedocumented in this encounter Care Teams Heating And Cooling Technician Relationship Specialty Start Date End Date Janet Magaña MD PCP - General 02/23/19 documented as of this encounter
--- OUTSIDE RECORDS SUMMARY | 2025-01-12 15:37 | XMS_ITS | Encounter Summary ---
Author Organization [facility] [place], Address [address] [place] [address] Phone Care Team Providers Care Threading Machine Tender Name Role Phone Janet Magaña MD Primary Care Provider [phone] Encounter Details Date Type Department Care Team (Late st Contact Info) Description 06/29/2021 Documentation Only [facility] [place], [address] [place] [address] Jeffry Santana MD [address] [place] [address] Social History Tobacco Use Types [...] on filedocumented in this encounter Care Teams Threading Machine Tender Relationship Specialty Start Date End Date Janet Magaña MD PCP - General 02/23/19 documented as of this encounter
--- OUTSIDE RECORDS SUMMARY | 2025-01-12 15:37 | XMS_ITS | Encounter Summary ---
Author Organization [facility] [place], Address [address] [place] [address] Phone Care Team Providers Care Land Surveyor Manager Name Role Phone Janet Magaña MD Primary Care Provider [phone] Encounter Details Date Type Department Care Team (Late st Contact Info) Description 04/18/2023 Orders Only [facility] [place], [address] [place] [address] Jeffry Santana MD [address] [facility] [place] [address] Stage 5 chronic kidney disease [...] (133-145) MMOL/L [facility] Potassium 4.9 (3.6-5.2) MMOL/L [facility] Chloride 108(H) (98-107) MMOL/L [facility] Bicarbonate (CO2) 24 (22-29) MMOL/L [facility] Anion Gap 10 (4-17) [facility] Albumin 3.4 (3.4-4.8) GM/DL [facility] Calcium 8.2(L) (8.6-10.5) MG/DL [facility] Phosphorus, Serum 4.4 (2.5-4.5) MG/DL [facility] Est GFR Non 7 ML/MIN/1.7 3 M2 [facility] Comment: Creatinine based estimated glomerular filtration (eGFR) in adults is calculated using the National Kid[employer] recommended 2020 CKD-EPI equation. Estimates GFR from serum creatinine, age and sex. Testing performed or reported by [facility], a Service of [facility], [address] [place] [address] Naun Ha MD, Network Controller [facility]# [id number] Blood specimen (specimen) Venous blood / Unknown 04/23/2023 1:01 PM EST 04/23/2023 1:02 PM EST us Jeffry Santana MD LAB BLOOD ORDERABLES Final Resul t [facility] documented in this encounter Visit Diagnoses Diagnosis Stage 5 chronic kidney disease (HCC) documented in this encounter Care Teams Land Surveyor Manager Relationship Specialty Start Date End Date Janet Magaña MD PCP - General 02/23/19 documented as of this encounter
--- OUTSIDE RECORDS SUMMARY | 2025-01-12 15:37 | XMS_ITS | Encounter Summary ---
Author Organization [facility] [place], Address [address] [place] [address] Phone Care Team Providers Care Openstack Cloud Consulting Architect Name Role Phone Janet Magaña MD Primary Care Provider Encounter Details Date Type Department Care Team (Late st Contact Info) Description 06/29/2021 Documentation Only [facility] [place], [address] [place] [address] Jeffry Santana MD [address] [place] [address] Social History Tobacco Use Types [...] on filedocumented in this encounter Care Teams Openstack Cloud Consulting Architect Relationship Specialty Start Date End Date Janet Magaña MD PCP - General 02/23/19 documented as of this encounter
--- OUTSIDE RECORDS SUMMARY | 2025-01-12 15:37 | XMS_ITS | Encounter Summary ---
Author Organization [facility] [place], Address [address] [place] [address] Phone Care Team Providers Care Solar Sales Name Role Phone Janet Magaña MD Primary Care Provider [phone] Encounter Details Date Type Department Care Team (Late st Contact Info) Description 08/05/2022 Documentation Only [facility] [place], [address] [place] [address] Jeffry Santana MD [address] [place] [address] Social History Tobacco Use Types [...] on filedocumented in this encounter Care Teams Solar Sales Relationship Specialty Start Date End Date Janet Magaña MD PCP - General 02/23/19 documented as of this encounter
--- OUTSIDE RECORDS SUMMARY | 2025-01-12 15:37 | XMS_ITS | Encounter Summary ---
Author Organization [facility] [place], Address [address] [place] [address] Phone Care Team Providers Care Fiberglass Insulation Installer Name Role Phone Janet Magaña MD Primary Care Provider [phone] Encounter Details Date Type Department Care Team (Late st Contact Info) Description 08/29/2022 Documentation Only [facility] [place], [address] [place] [address] Merrill Ariza, DO [address] [place] [address] Social History Tobacco Use Types [...] on filedocumented in this encounter Care Teams Fiberglass Insulation Installer Relationship Specialty Start Date End Date Janet Magaña MD PCP - General 02/23/19 documented as of this encounter
--- OUTSIDE RECORDS SUMMARY | 2025-01-12 15:37 | XMS_ITS | Encounter Summary ---
Author Organization [facility] [place], Address [address] [place] [address] Phone Care Team Providers Care Interface Engineer Name Role Phone Janet Magaña MD Primary Care Provider [phone] Encounter Details Date Type Department Care Team (Late st Contact Info) Description 10/31/2023 Orders Only [facility] [place], [address] [place] [address] Jeffry Santana MD [address] [place] [phone] Stage 5 chronic kidney disease (HCC) Social [...] (HCC) documented in this encounter Care Teams Interface Engineer Relationship Specialty Start Date End Date Janet Magaña MD PCP - General 02/23/19 documented as of this encounter
--- OUTSIDE RECORDS SUMMARY | 2025-01-12 15:37 | XMS_ITS | Encounter Summary ---
Author Organization [facility] [place], Address [address] [place] [address] Phone Care Team Providers Care Sheet Taker Name Role Phone Janet Magaña MD Primary Care Provider [phone] Encounter Details Date Type Department Care Team (Late st Contact Info) Description 11/21/2017 Documentation Only [facility] [place], [address] [place] [address] Jeffry Santana MD [address] [place] [address] Social History Tobacco Use Types [...] on filedocumented in this encounter Care Teams Sheet Taker Relationship Specialty Start Date End Date Janet Magaña MD PCP - General 02/23/19 documented as of this encounter
--- OUTSIDE RECORDS SUMMARY | 2025-01-12 15:37 | XMS_ITS | Encounter Summary ---
Author Organization [facility], Address [address] [place] [address] Phone Care Team Providers Care Media Liaison Officer Name Role Phone Janet Magaña MD Primary Care Provider [phone] Encounter Details Date Type Department Care Team (Late st Contact Info) Description 01/11/2025 Treatment [facility], [address] [place] [address] Anna Stuart FNP-C [address] [place] [address] [place] [phone] End stage renal disease; Dependence on renal [...] Dialysis Note - Anna Stuart FNP-C - 01/11/2025 12:00 AM EDT Patient: NEGRITA BRAGA, 1960, 64y, M Dialysis Location: [facility] Attending Chute Feeder: Dae Lentz Service Date: 01/11/2025 Service Provider: Anna Stuart NP I met face to face with the patient today. 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 Access patent. VS noted. RRR with S1 and S2. LS CTA Bilaterally. nocomplaints today. DIALYSIS PRESCRIPTION IHD 3x Week Start date: 12/04/24 Dialyzer: FX CorAL 80 BFR: 450 DFR: Manual 800 Potassium: 2.0 Sodium: 138 EDW: 87 Duration: 4:00 Calcium: 2.50 Bicarb: 37 Rx updated on: 12/03/2024 TREATMENT ASSESSMENT BP Stand Pre 01/11/2025: 201/102 01/08/2025: 128/80 01/06/2025: 155/90 BP Sit Pre 01/11/2025: 170/97 01/08/2025: 154/81 01/06/2025: 155/102 BP Stand Post 01/11/2025: 110/77 01/08/2025: 115/73 01/06/2025: 116/85 BP Sit Post 01/11/2025: 119/75 01/08/2025: 118/72 01/06/2025: 138/76 Tx Duration 01/11/2025: 4:00 01/08/2025: 4:00 01/06/2025: 3:55 Missed Treatments 0 - last 30 days 0 - last 60 days FLUID ASSESSMENT EDW (kg) 01/11/2025: 87.0 01/08/2025: 87.0 01/06/2025: 87.0 Weight Pre (kg) 01/11/2025: 90.0 01/08/2025: 89.6 01/06/2025: 89.9 Weight Post (kg) 01/11/2025: 87.0 01/08/2025: 86.9 01/06/2025: 87.3 PWV (kg) 01/11/2025: 0.0 01/08/2025: -0.1 01/06/2025: 0.3 UF Rate (mL/kg/hr) 01/11/2025: 8.6 01/08/2025: 7.8 01/06/2025: 7.6 ADEQUACY ASSESSMENT spKt/V, URR 12/30/2024: 1.5, 73.0 12/23/2024: 1.38, 69.0 11/25/2024: 1.53, 72.0 ACCESS ASSESSMENT Access Type: AVFistula Access SubType: Standard Access Status: Active (In Use) - 08/30/2023 Access Location: Left Upper Arm Created: 03/06/2023 Flow 12/21/2024: 1659 11/20/2024: 1375 10/23/2024: 1375 ANEMIA ASSESSMENT HGB, TSAT 01/06/2025: 13.6, 26.0 12/30/2024: 13.6, - 12/23/2024: 13.9, - Ferritin 01/06/2025: 55.0 12/09/2024: 23.0 11/04/2024: 84.0 BMM ASSESSMENT PTH, Intact 01/06/2025: 287.0 12/09/2024: 336.0 11/04/2024: 298.0 Calcium, Phosphorus 01/06/2025: 10.2, 8.9 12/09/2024: 9.8, 7.1 11/04/2024: 9.4, 6.3 Vitamin D (Calcitriol) Oral (mcg) 01/11/2025: 1.25 01/08/2025: 1.50 01/06/2025: 1.50 NUTRITION ASSESSMENT Potassium, Albumin 01/06/2025: 5.7, 4.2 12/09/2024: 5.3, 4.3 11/04/2024: 5.7, 4.2 eNPCR 12/30/2024: 1.0 12/23/2024: 0.96 11/25/2024: 0.92 DIAGNOSIS Chief Complaint: N18.6 End stage renal disease Patient is stable. Patient data updated 01/12/2025 at 7:22 AM Signed By: Anna Stuart NP on 01/12/2025 7:22:49 AM documented in this encounter Plan of Treatment Not on file documented as of this encounter Visit Diagnoses Diagnosis End stage renal disease Dependence on renal dialysis documented in this encounter Care Teams Media Liaison Officer Relationship Specialty Start Date End Date Janet Magaña MD PCP - General 02/23/19 documented as of this encounter
--- OUTSIDE RECORDS SUMMARY | 2025-01-12 15:37 | XMS_ITS | Encounter Summary ---
Author Organization [facility], Address [address] [place] [address] Phone Care Team Providers Care Geriatric Nursing Assistant Name Role Phone Janet Magaña MD Primary Care Provider [phone] Encounter Details Date Type Department Care Team (Late st Contact Info) Description 12/09/2022 Documentation Only [facility], [address] [place] [address] Jeffry Santana MD [address] [place] [address] Social History Tobacco Use Types [...] on filedocumented in this encounter Care Teams Geriatric Nursing Assistant Relationship Specialty Start Date End Date Janet Magaña MD PCP - General 02/23/19 documented as of this encounter
--- OUTSIDE RECORDS SUMMARY | 2025-01-12 15:37 | XMS_ITS | Encounter Summary ---
Author Organization [facility], Address [address] [place] [address] Phone Care Team Providers Care General Practitioner Name Role Phone Janet Magaña MD Primary Care Provider [phone] Encounter Details Date Type Department Care Team (Late st Contact Info) Description 02/21/2023 Documentation Only [facility], [address] [place] [address] Jenn Vivar [address] [place] [address] Social History Tobacco Use Types [...] on filedocumented in this encounter Care Teams General Practitioner Relationship Specialty Start Date End Date Janet Magaña MD PCP - General 02/23/19 documented as of this encounter
--- OUTSIDE RECORDS SUMMARY | 2025-01-12 15:37 | XMS_ITS | Clinical Summary ---
Author Organization [facility] Address [address] [address] Phone Care Team Providers Care Manager Trainee Name Role Phone Janet Magaña MD Primary Care Provider [phone] Allergies Active Allergy Reactions Criticality Noted Date Comments Aspirin Other (See Comments) 06/19/2016 Glipizide Other (See Comments) 06/19/2016 Medications aspirin 81 MG EC tablet Take 81 mg by mouth. Active JULUCA 50-25 mg tablet 05/05/2022 Active doxazosin (CARDURA) 2 MG tablet Take 2 mg by mouth daily. 04/06/2022 Active ergocalciferol (DRISDOL) 50,000 unit capsule 05/03/2022 Active losartan (COZAAR) 50 MG tablet 02/27/2022 Active pravastatin (PRAVACHOL) 10 MG tablet Take 10 mg by mouth. 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 Diabetic nephropathy associa brandie with type 2 diabetes mellitus 08/02/2019 Proteinuria 08/02/2019 Chronic kidney disease, stage 4 (severe) 019 Hypertensive disorder 04/08/2019 IgA nephropathy 04/08/2019 Social History Tobacco Use Types Packs/Day Years [...] Sign Reading Time Taken Comments Blood Pressure 126/78 05/16/2022 5:57 PM EST Pulse 93 05/16/2022 5:57 PM EST Temperature 37.1 C (98.8 F) 05/16/2022 5:57 PM EST Respiratory Rate 20 05/16/2022 5:57 PM EST Oxygen Saturation 97% 05/16/2022 5:57 PM EST Inhaled Oxygen Concentration - - Weight 102.1 kg (225 lb) 05/16/2022 5:57 PM EST Height 171.5 cm (5' 7.5 ) 05/16/2022 5:57 PM EST Body Mass Index 34.72 05/16/2022 5:57 PM EST Plan of Treatment Health Maintenance Due Date Last Done Comments CREATININE LEVEL 1960 HEMOGLOBIN A1C 1960 POTASSIUM LEVEL 1959 DEPRESSION SCREENING 1971 SMOKING Hx and SMOKELESS TOBACCO SCREENING 01/31/1972 HEPATITIS C SCREENING 1977 HIV ONE-TIME SCREENING (18-65 YEARS) 1977 LIPID PANEL 1977 COLOGUARD 01/31/2004 COLONOSCOPY 01/31/2004 COLORECTAL CANCER SCREENING 01/31/2004 FIT TEST 01/31/2004 FOBT 01/31/2004 SIGMOIDOSCOPY 01/31/2004 VIRTUAL COLONOSCOPY 01/31/2004 ZOSTER VACCINES (1 of 2) 2009 PNEUMOCOCCAL VACCINES (50+ years) (3 of 3 - PCV20 or PCV21) 01/24/2021 01/25/2016, 03/28/2014 Adult Td,Tdap Booster 05/06/2022 05/06/2012, 006 DIABETIC EYE EXAM 05/16/2022 BLOOD PRESSURE 11/13/2022 05/16/2022 INFLUENZA VACCINE (#1) 2024 , 01/12/2021, 02/27/2020, Additional history exists COVID-19 VACCINE ( - season) 2024 02/07/2022, 01/12/2021, 07/06/2020, Additional history exists RSV VACCINE (1 - 1-dose 75+ series) 2034 MENINGOCOCCAL VACCINES (ACWY) Aged Out 03/27/2017, 10/17/2016 No longer eligibl e based on patient's age to complete this topic HEPATITIS A VACCINES Aged Out No long er eligible based on patient's age to complete this topic HIB VACCINES Aged Out No longer eligi ble based on patient's age to complete this topic MENINGOCOCCAL VACCINES (B) Aged Out N o longer eligible based on patient's age to complete this topic Medical Devices Not on file Insurance [facility] PPO EPO [facility] PPO EPO [facility] [place] [address] [place] [address] [place] [address] [place] [address] PPO EPO [facility] PPO EPO Care Teams Manager Trainee Relationship Specialty Start Date End Date Janet Magaña MD [address] [place] [address] PCP - General Family Medicine 05/16/22 Additional Source Comments The information contained in this document represents components of the legal health record. It is not the complete legal health record.[facility]
--- OUTSIDE RECORDS SUMMARY | 2025-01-12 15:37 | XMS_ITS | Encounter Summary ---
Author Organization [facility], Address [address] [place] [address] Phone Care Team Providers Care Tower Air Traffic Control Specialist Name Role Phone Janet Magaña MD Primary Care Provider [phone] Encounter Details Date Type Department Care Team (Late st Contact Info) Description 08/08/2023 Orders Only [facility], [address] [place] [address] Jeffry Santana MD [address] [place] [id number] Stage 5 chronic kidney disease (HCC) Social [...] (HCC) documented in this encounter Care Teams Tower Air Traffic Control Specialist Relationship Specialty Start Date End Date Jnaet Magaña MD PCP - General 02/23/19 documented as of this encounter
--- OUTSIDE RECORDS SUMMARY | 2025-01-12 15:37 | XMS_ITS | Clinical Summary ---
Author Organization [facility], Address [address] [place] [address] Phone Care Team Providers Care Patent Chemist Name Role Phone Janet Magaña MD Primary Care Provider [phone] Allergies Active Allergy Reactions Criticality Noted Date [...] mouth every night Active ergocalciferol 1.25 MG (36040 UT) capsule TAKE 1 CAPSULE EVERY WEEK [...] Encounters Date Type Department Care Team Description 01/11/2025 Treatment [facility], [address] [place] [address] Anna Stuart FNP-C End stage renal disease; Dependence on renal dialysis 01/06/2025 Orders Only [facility] [address] [address] Dae Lentz MD 12/30/2024 Orders Only [facility] [address] [address] Dae Lentz MD 12/28/2024 Treatment [facility], [address] [place] [address] Cristino Greene MD End stage renal disease; Dependence on renal dialysis 12/23/2024 Orders Only [facility] [address] [address] Dae Lentz MD 12/21/2024 Treatment [facility], [address] [place] [address] Madamas, Anna, HARVEST SUPERVISOR-C End stage renal disease; Dependence on renal dialysis 12/16/2024 Orders Only [facility] [address] [address] Dae Lentz MD 12/11/2024 Treatment [facility], [address] [place] [address] Anna Stuart FNP-C End stage renal disease; Dependence on renal dialysis 12/09/2024 Treatment [facility] [address] [place] [address] Cristino Greene MD End stage renal disease; Dependence on renal dialysis 12/09/2024 Orders Only [facility] [address] [address] Dae Lentz MD 12/02/2024 Orders Only [facility] [address] [address] Dae Lentz MD 12/02/2024 Treatment [facility] [address] [place] [address] Cristino Greene MD End stage renal disease; Dependence on renal dialysis 11/25/2024 Orders Only [facility] [address] [address] Dae Lentz MD 11/23/2024 Treatment [facility] [address] [place] [address] Anna Stuart, HARVEST SUPERVISOR-C End stage renal disease; Dependence on renal dialysis 11/18/2024 Orders Only [facility] [address] [address] Dae Lentz MD 11/11/2024 Orders Only [facility] [address] [address] Dae Lentz MD 11/04/2024 Orders Only [facility] [address] [address] Dae Lentz MD 11/02/2024 Treatment [facility] [address] [place] [address] Anna Stuart FNP-C End stage renal disease; Dependence on renal dialysis 10/28/2024 Orders Only [facility] [address] [address] Dae Lentz MD 10/28/2024 Treatment [facility] [address] [place] [address] Cristino Greene MD End stage renal disease; Dependence on renal dialysis 10/26/2024 Treatment [facility] [address] [place] [address] Anna Stuart FNP-C End stage renal disease; Dependence on renal dialysis 10/21/2024 Orders Only [facility] [address] [address] Dae Lentz MD 10/19/2024 Treatment [facility] [address] [place] [address] Anna Stuart FNP-C End stage renal disease; Dependence on renal dialysis 10/14/2024 Orders Only [facility] [address] [address] Dae Lentz MD from Last 3 Months Immunizations Immunization Administration Dates Next Due Hepatitis B 05/09/2016, [...] 83 09/18/2023 7:58 AM EDT Temperature 36.3 C (97.3 F) 08/22/2023 9:50 AM EDT Respiratory Rate 16 05/16/2023 1:16 PM EST [...] Colorectal Cancer Screening: Sigmoidoscopy 01/31/2008 Pneumococcal Vaccine: 50+ Ye ars (3 of 3 - PCV20 or PCV21) 03/28/2019 01/25/2016, 03/28/2014 Diabetes: Ophthalmology Exam 04/08/2019 Diabetes: Pedal Pulse Checked 04/08/2019 Diabetes: Sensory Foot Exam 04/08/2019 Diabetes: Visual Foot Exam 04/08/2019 Influenza Vaccine (#1) 2024 4, 02/07/2022, 01/12/2021, Additional history exists Diabetes: Hemoglobin A1C 02/04/2025 025, 08/05/2024, 05/06/2024, Additional history exists Pneumococcal Vaccine: Peds ( 0 to 5 Years) and At-Risk Patients (6 to 49 Years) Discontinued 01/25/2016, 03/28/2014 Procedures Procedure Name Priority Date/Time Associated Diagnosis Comments IMMUNO CHEMISTRY Routine 01/06/2025 CHEMISTRY Routine 01/06/2025 HEMATOLOGY Routine 01/06/2025 CHEMISTRY Routine 01/06/2025 [facility] RESULTS Routine 12/30/2024 HD KINETICS Routine 12/30/2024 POST CHEMISTRY Routine 12/30/2024 HEMATOLOGY Routine 12/30/2024 CHEMISTRY Routine 12/30/2024 [facility] RESULTS Routine 12/23/2024 HD KINETICS Routine 12/23/2024 CHEMISTRY Routine 12/23/2024 POST CHEMISTRY Routine 12/23/2024 HEMATOLOGY Routine 12/23/2024 HEMATOLOGY Routine 12/16/2024 HEMATOLOGY Routine 12/09/2024 IMMUNO CHEMISTRY Routine 12/09/2024 CHEMISTRY Routine 12/09/2024 CHEMISTRY Routine 12/09/2024 HEMATOLOGY Routine 12/02/2024 [facility] RESULTS Routine 11/25/2024 HD KINETICS Routine 11/25/2024 POST CHEMISTRY Routine 11/25/2024 CHEMISTRY Routine 11/25/2024 HEMATOLOGY Routine 11/25/2024 HEMATOLOGY Routine 11/18/2024 HEMATOLOGY Routine 11/11/2024 SPECIAL CHEMISTRY Routine 11/04/2024 IMMUNO CHEMISTRY Routine 11/04/2024 SPECIAL CHEMISTRY Routine 11/04/2024 CHEMISTRY Routine 11/04/2024 HEMATOLOGY Routine 11/04/2024 CHEMISTRY Routine 11/04/2024 HEMATOLOGY Routine 10/28/2024 [facility] RESULTS Routine 10/21/2024 HD KINETICS Routine 10/21/2024 POST CHEMISTRY Routine 10/21/2024 CHEMISTRY Routine 10/21/2024 HEMATOLOGY Routine 10/21/2024 HEMATOLOGY Routine 10/14/2024 from Last 3 Months Results * IMMUNO CHEMISTRY (01/06/2025) Only the most recent of3 resultswithin the time period is included. Hep B Surface Ag Negative Negative [facility] 01/06/2025 01/07/2025 9:4 1 AM EDT Narrative Resulting Agency Comment Specimen source: Serum Dae Lentz MD LAB BLOOD ORDERABLES Final Re sult Performing Organization Address [facility] de Phone Number [facility] See order comments or contact performing lab Unknown, [place] * (ABNORMAL) HEMATOLOGY (01/06/2025) Only the most recent of13 resultswithin the time period is included. Hemoglobin 13.6(L) 14.0 - 18.0 g/dL [facility] Hemoglobin x 3 40.8(L) 42.0 - 54.0 % [facility] 01/06/2025 01/07/2025 9:4 7 AM EDT Narrative [facility] - 01/07/2025 Unless otherwise specified, test(s) performed at: [facility], [address] [place] [address] SUPERVISOR CRACK OFF: Joey Ornelas M.D. For any questions, please call customer service at FREQUENCY:MONTHLY Resulting Agency Comment Specimen source: Blood Dae Lentz MD LAB BLOOD ORDERABLES Final Re sult Performing Organization Address [facility] de Phone Number [facility] See order comments or contact performing lab Unknown, [place] * (ABNORMAL) [facility] Chemistry (01/06/2025) Only the most recent of10 resultswithin the time period is included. Creatinine 10.75(H) 0.60 - 1.30 mg/dL [facility] Sodium 139 136 - 145 mEq/L [facility] Potassium 5.7(H) 3.5 - 5.1 mEq/L [facility] Bicarbonate (CO2) 20(L) 22 - 29 mEq/L [facility] Calcium 10.2 8.4 - 10.2 mg/dL [facility] Comment: Custom Exception Corrected Calcium 10.0 8.4 - 10.2 mg/dL [facility] Comment: Corrected Calcium is not equivalent to measured Ionized Calcium. Phosphorus 8.9(H) 2.6 - 4.5 mg/dL [facility] Calcium Phosphorus Product 91(H) 0 - 54 [facility] Calcium Phosporus Product, Cor 89(H) 0 - 54 [facility] Alkaline Phosphatase 64 40 - 129 U/L [facility] ALT (SGPT) 14 7 - 52 U/L [facility] Albumin 4.2 3.5 - 5.2 g/dL [facility] Ferritin 55 22 - 322 ng/mL [facility] Iron 99 45 - 160 mcg/dL [facility] UIBC 275 155 - 355 mcg/dL [facility] TIBC 374 185 - 515 mcg/dL [facility] Iron Saturation (TSat) 26 20 - 55 % [facility] 01/06/2025 01/07/2025 9:4 1 AM EDT Narrative [facility] - 01/07/2025 Unless otherwise specified, test(s) performed at: [facility], [address] [place] [address] SUPERVISOR CRACK OFF: Joey Ornelas M.D. For any questions, please call customer service at FREQUENCY:MONTHLY Resulting Agency Comment Specimen source: Serum Dae Lentz MD LAB BLOOD ORDERABLES Final Re sult Performing Organization Address [facility] Co de Phone Number [facility] See order comments or contact performing lab Unknown, [place] * HD KINETICS (12/30/2024) Only the most recent of4 resultswithin the time period is included. Pathologist [facility] % Urea Reduction 73 65 - 80 % [facility] 12/30/2024 12/31/2024 8:4 7 AM EDT Narrative Resulting Agency Comment Specimen source: Plasma Dae Lentz MD LAB BLOOD ORDERABLES Final Re sult Performing Organization Address City/[facility]/ZIP Co de Phone Number [facility] See order comments or contact performing lab Unknown, [place] * POST CHEMISTRY (12/30/2024) Only the most recent of4 resultswithin the time period is included. Pathologist [facility] BUN Post Dialysis 17 6 - 19 mg/dL [facility] 12/30/2024 12/31/2024 8:4 7 AM EDT Narrative [facility] - 12/31/2024 Unless otherwise specified, test(s) performed at: [facility], [address] [place] [id number] SUPERVISOR CRACK OFF: Joey Ornelas M.D. For any questions, please call customer service at FREQUENCY:OTHER Resulting Agency Comment Specimen source: Plasma Dae Lentz MD LAB BLOOD ORDERABLES Final Re sult [facility] See order comments or contact performing lab Unknown, [place] * [facility] Results (12/30/2024) Only the most recent of4 resultswithin the time period is included. Pathologist [facility] spKt/V (Daugirdas II) 1.50 [facility] eKdrt/V 1.32 [facility] WSTDKT/V 2.4 [facility] spKt/V Gotch 1.52 [facility] PCR 79.25 [facility] eKt/V ([place]) 1.31 [facility] nPCR_HD 1.07 [facility] eNPCR 1.00 [facility] eKt/V Gotch 1.32 [facility] e Center 12/30/2024 12/30/2024 [facility] Ordering Provider LAB BLOOD ORDERABLES Final Result [facility] Contact Performing lab Unknown, [place] * SPECIAL CHEMISTRY (11/04/2024) Only the most recent of2 resultswithin the time period is included. [facility] Hemoglobin A1C 5.4 4.8 - 5.9 % [facility] 11/04/2024 11/05/2024 3:0 8 PM EDT Narrative [facility] - 11/05/2024 Unless otherwise specified, test(s) performed at: [facility], [address] [place] [address] SUPERVISOR CRACK OFF: Joey Ornelas M.D. For any questions, please call customer service at FREQUENCY:MONTHLY Resulting Agency Comment Specimen source: Blood us Dae Lentz MD LAB BLOOD BANK TEST ORDERABLE S Final Result [facility] See order comments or contact performing lab Unknown, [place] from Last [address] [place] [address] [place] [address] Care Teams Patent Chemist Relationship Specialty Start Date End Date Janet Magaña MD PCP - General 02/23/19
--- OUTSIDE RECORDS SUMMARY | 2025-01-12 15:37 | XMS_ITS | Encounter Summary ---
Author Organization [facility], Address [address] [place] [address] Phone Care Team Providers Care Triple Valve Mechanic Name Role Phone Janet Magaña MD Primary Care Provider [phone] Encounter Details Date Type Department Care Team (Late st Contact Info) Description 06/13/2023 Orders Only [facility], [address] [place] [address] Jeffry Santana MD [address] [place] [phone] Stage 5 chronic kidney disease (HCC) Social [...] (8-23) MG/DL [facility] Creatinine 7.3(H) (0.7-1.2) MG/DL [facility] Sodium 141 (133-145) MMOL/L [facility] Potassium 5.1 (3.6-5.2) MMOL/L [facility] Chloride 106 (98-107) MMOL/L [facility] Bicarbonate (CO2) 22 (22-29) MMOL/L [facility] Anion Gap 13 (4-17) [facility] Albumin 3.9 (3.4-4.8) GM/DL [facility] Calcium 9.3 (8.6-10.5) MG/DL [facility] Phosphorus, Serum 3.9 (2.5-4.5) MG/DL [facility] Est GFR Non 8 ML/MIN/1.7 3 M2 [facility] Comment: Creatinine based estimated glomerular filtration (eGFR) in adults is calculated using the National Kid[employer] recommended 2020 CKD-EPI equation. Estimates GFR from serum creatinine, age and sex. Testing performed or reported by [facility], a Service of [facility], [address] [place] [address] Naun Ha MD, Fountain Roller Assembler [facility]# [id number] Blood specimen (specimen) Venous blood / Unknown 06/16/2023 2:25 PM EST 06/16/2023 2:36 PM EST us Jeffry Santana MD LAB BLOOD ORDERABLES Final Resul t [facility] documented in this encounter Visit Diagnoses Diagnosis Stage 5 chronic kidney disease (HCC) documented in this encounter Care Teams Triple Valve Mechanic Relationship Specialty Start Date End Date Janet Magaña MD PCP - General 02/23/19 documented as of this encounter
--- OUTSIDE RECORDS SUMMARY | 2025-01-12 15:37 | XMS_ITS | Encounter Summary ---
Author Organization [facility], Address [address] [place] [address] Phone Care Team Providers Care Marketing Representative Name Role Phone Janet Magaña MD Primary Care Provider [phone] Encounter Details Date Type Department Care Team (Late st Contact Info) Description 08/05/2022 Documentation Only [facility], [address] [place] [address] Jeffry Santana MD [address] [place] [address] Social History Tobacco Use Types [...] on filedocumented in this encounter Care Teams Marketing Representative Relationship Specialty Start Date End Date Janet Magaña MD PCP - General 02/23/19 documented as of this encounter
--- OUTSIDE RECORDS SUMMARY | 2025-01-12 15:37 | XMS_ITS | Encounter Summary ---
Author Organization [facility], Address [address] [place] [address] Phone Care Team Providers Care Assembler Caterpillar Spider Name Role Phone Janet Magaña MD Primary Care Provider [phone] Encounter Details Date Type Department Care Team (Late st Contact Info) Description 01/06/2025 Orders Only [facility] [address] [place] [phone] Dae Lentz MD [address] [place] [address] [place] [id number] Social History Tobacco Use Types Packs/Day Years [...] Associated Diagnosis Comments IMMUNO CHEMISTRY Routine 01/06/2025 HEMATOLOGY Routine 01/06/2025 CHEMISTRY Routine 01/06/2025 CHEMISTRY Routine 01/06/2025 documented in this encounter Results * IMMUNO CHEMISTRY (01/06/2025) Hep B Surface Ag Negative Negative [facility] 01/06/2025 01/07/2025 9:4 1 AM EDT Narrative Resulting Agency Comment Specimen source: Serum Dae Lentz MD LAB BLOOD ORDERABLES Final Re sult [facility] See order comments or contact performing lab Unknown, [place] * (ABNORMAL) [facility] (01/06/2025) Pathologist [facility] Creatinine 10.75(H) 0.60 - 1.30 mg/dL [facility] [...] 01/07/2025 Unless otherwise specified, test(s) performed at: [facility], [address] [place], [place] [id number] CONSTRUCTION TRADES CONTRACTOR: Joey Ornelas M.D. For any questions, please call customer service at FREQUENCY:MONTHLY Resulting Agency Comment Specimen source: Serum Dae Lentz MD LAB BLOOD ORDERABLES Final Re sult Performing Organization Address [facility] Co de Phone Number [facility] See order comments or contact performing lab Unknown, [place] * (ABNORMAL) HEMATOLOGY (01/06/2025) Hemoglobin 13.6(L) 14.0 - 18.0 g/dL [facility] Hemoglobin x 3 40.8(L) 42.0 - 54.0 % [facility] 01/06/2025 01/07/2025 9:4 7 AM EDT Narrative [facility] - 01/07/2025 Unless otherwise specified, test(s) performed at: [place] [address] CONSTRUCTION TRADES CONTRACTOR: Joey Ornelas M.D. For any questions, please call customer service at FREQUENCY:MONTHLY Resulting Agency Comment Specimen source: Blood Dae Lentz MD LAB BLOOD ORDERABLES Final Re sult Performing Organization Address [facility] de Phone Number [facility] See order comments or contact performing lab Unknown, [place] * (ABNORMAL) [facility] (01/06/2025) Pathologist [facility] PTH 287(H) 16 - 80 pg/mL [facility] 01/06/2025 01/07/2025 10: 07 AM EDT Narrative [facility] - 01/07/2025 Unless otherwise specified, test(s) performed at: [facility], [address] [place] [id number] CONSTRUCTION TRADES CONTRACTOR: Joey Ornelas M.D. For any questions, please call customer service at FREQUENCY:MONTHLY Resulting Agency Comment Specimen source: Plasma Dae Lentz MD LAB BLOOD ORDERABLES Final Re sult Performing Organization Address [facility] Co de Phone Number [facility] See order comments or contact performing lab Unknown, [place] documented in this encounter Visit Diagnoses Not on filedocumented in this encounter Care Teams Assembler Caterpillar Spider Relationship Specialty Start Date End Date Janet Magaña MD PCP - General 02/23/19 documented as of this encounter
--- OUTSIDE RECORDS SUMMARY | 2025-01-12 15:37 | XMS_ITS | Encounter Summary ---
Author Organization [facility], Address [address] [place] [address] Phone Care Team Providers Care Assistant Quality Manager Name Role Phone Janet Magaña MD Primary Care Provider [phone] Encounter Details Date Type Department Care Team (Late st Contact Info) Description 10/03/2023 Orders Only [facility], [address] [place] [address] Jeffry Santana MD [address] [place] [phone] Stage 5 chronic kidney disease (HCC) Social [...] (HCC) documented in this encounter Care Teams Assistant Quality Manager Relationship Specialty Start Date End Date Janet Magaña MD PCP - General 02/23/19 documented as of this encounter
--- OUTSIDE RECORDS SUMMARY | 2025-01-12 15:37 | XMS_ITS | Encounter Summary ---
Author Organization [facility] [place], Address [address] [place] [address] Phone Care Team Providers Care Investments Manager Name Role Phone Janet Magaña MD Primary Care Provider Reason for Visit * Reason Comments Med Refill Encounter Details Date Type Department Care Team (Late st Contact Info) Description 06/17/2023 Refill [facility], [facility] [address] [facility] [address] [place] [address] Jeffry Santana MD [address] [place] [address] [facility] [place] [address] Social History Tobacco Use Types Packs/Day Years [...] on filedocumented in this encounter Care Teams Investments Manager Relationship Specialty Start Date End Date Janet Magaña MD PCP - General 02/23/19 documented as of this encounter
--- OUTSIDE RECORDS SUMMARY | 2025-01-12 15:37 | XMS_ITS | Encounter Summary ---
Author Organization [facility] [place], Address [address] [place] [address] Phone Care Team Providers Care Bulwark Carpenter Name Role Phone Janet Magaña MD Primary Care Provider [phone] Encounter Details Date Type Department Care Team (Late st Contact Info) Description 08/05/2022 Documentation Only [facility], [address] [place] [address] Jeffry Santana MD [address] [place] [address] Social History Tobacco Use Types [...] on filedocumented in this encounter Care Teams Bulwark Carpenter Relationship Specialty Start Date End Date Janet Magaña MD PCP - General 02/23/19 documented as of this encounter
--- OUTSIDE RECORDS SUMMARY | 2025-01-12 15:37 | XMS_ITS | Encounter Summary ---
Author Organization [facility] [place], Address [address] [place] [address] Phone Care Team Providers Care Packer Insulation Name Role Phone Janet Magaña MD Primary Care Provider Encounter Details Date Type Department Care Team (Late st Contact Info) Description 11/28/2023 Orders Only [facility], [address] [place] [address] Jeffry Santana MD [address] [place] [phone] Stage 5 chronic kidney disease (HCC) Social [...] (HCC) documented in this encounter Care Teams Packer Insulation Relationship Specialty Start Date End Date Janet Magaña MD PCP - General 02/23/19 documented as of this encounter
--- OUTSIDE RECORDS SUMMARY | 2025-01-12 15:37 | XMS_ITS | Encounter Summary ---
Author Organization [facility] [place], Address [address] [place] [address] Phone Care Team Providers Care Finished Cloth Examiner Name Role Phone Janet Magaña MD Primary Care Provider [phone] Encounter Details Date Type Department Care Team (Late st Contact Info) Description 12/26/2023 Orders Only [facility], [address] [place] [address] Jeffry Santana MD [address] [facility] [place] [phone] Stage 5 chronic kidney disease (HCC) Social [...] Glucose 93 70 - 99 mg/dL [facility] BUN 54(H) 8 - 27 mg/dL [facility] Creatinine 9.94(H) 0.76 - 1.27 mg/dL [facility] eGFR CKD-EPI CR 2020 5(L) >59 mL/min/1.7 3 [facility] BUN/Creatinine Ratio 5(L) 10 - 24 [facility] Sodium 139 134 - 144 mmol/L [facility] Potassium 5.1 3.5 - 5.2 mmol/L [facility] Chloride 102 96 - 106 mmol/L [facility] Bicarbonate (CO2) 21 20 - 29 mmol/L [facility] Calcium 9.5 8.6 - 10.2 mg/dL [facility] Albumin 4.4 3.9 - 4.9 g/dL [facility] Phosphorus 5.5(H) 2.8 - 4.1 mg/dL [facility] 05/04/2024 9:20 AM EST 05/04/2024 us Jeffry Santana MD LAB BLOOD ORDERABLES Final Resul [facility] [address] [place] [address] documented in this encounter Visit Diagnoses Diagnosis Stage 5 chronic kidney disease (HCC) documented in this encounter Care Teams Finished Cloth Examiner Relationship Specialty Start Date End Date Janet Magaña MD PCP - General 02/23/19 documented as of this encounter
--- OUTSIDE RECORDS SUMMARY | 2025-01-12 15:37 | XMS_ITS | Encounter Summary ---
Author Organization [facility] [place], Address [address] [place] [address] Phone Care Team Providers Care Toggle Press Folder And Feeder Name Role Phone Janet Magaña MD Primary Care Provider [phone] Encounter Details Date Type Department Care Team (Late st Contact Info) Description 09/30/2022 Documentation Only [facility], [address] [place] [address] Merle Figueredo Social History Tobacco Use Types Packs/Day Years [...] on filedocumented in this encounter Care Teams Toggle Press Folder And Feeder Relationship Specialty Start Date End Date Janet Magaña MD PCP - General 02/23/19 documented as of this encounter
--- OUTSIDE RECORDS SUMMARY | 2025-01-12 15:37 | XMS_ITS | Encounter Summary ---
Author Organization [facility] [place], Address [address] [place] [address] Phone Care Team Providers Care Recruiter Manager Name Role Phone Janet Magaña MD Primary Care Provider [phone] Encounter Details Date Type Department Care Team (Late st Contact Info) Description 03/27/2022 Documentation Only [facility], [address] [place] [address] Jeffyr Santana MD [address] [place] [address] Social History Tobacco Use Types [...] on filedocumented in this encounter Care Teams Recruiter Manager Relationship Specialty Start Date End Date Janet Magaña MD PCP - General 02/23/19 documented as of this encounter
--- OUTSIDE RECORDS SUMMARY | 2025-01-12 15:37 | XMS_ITS | Encounter Summary ---
Author Organization [facility] [place], Address [address] [place] [address] Phone Care Team Providers Care Brand Protection Manager Name Role Phone Janet Magaña MD Primary Care Provider [phone] Encounter Details Date Type Department Care Team (Late st Contact Info) Description 07/17/2022 Documentation Only [facility], [address] [place] [place] [address] Merrill Ariza, DO [address] [place] [address] Social History Tobacco Use Types [...] on filedocumented in this encounter Care Teams Brand Protection Manager Relationship Specialty Start Date End Date Janet Magaña MD PCP - General 02/23/19 documented as of this encounter
--- OUTSIDE RECORDS SUMMARY | 2025-01-12 15:37 | XMS_ITS | Encounter Summary ---
Author Organization [facility] [place], Address [address] [place] [address] Phone Care Team Providers Care Skirt Trimmer Name Role Phone Janet Magaña MD Primary Care Provider [phone] Encounter Details Date Type Department Care Team (Late st Contact Info) Description 02/21/2023 Documentation Only [facility] [place], [address] [place] [address] Jenn Vivar [address] [place] [address] Social History Tobacco Use Types [...] on filedocumented in this encounter Care Teams Skirt Trimmer Relationship Specialty Start Date End Date Janet Magaña MD PCP - General 02/23/19 documented as of this encounter
--- OUTSIDE RECORDS SUMMARY | 2025-01-12 15:37 | XMS_ITS | Encounter Summary ---
Author Organization [facility] [place], Address [address] [place] [address] Phone Care Team Providers Care Support Associate Name Role Phone Janet Magaña MD Primary Care Provider [phone] Encounter Details Date Type Department Care Team (Late st Contact Info) Description 07/11/2023 Orders Only [facility], [address] [place] [address] Jeffry Santana MD [address] [place] [phone] Stage 5 chronic kidney disease (HCC) Social [...] (HCC) documented in this encounter Care Teams Support Associate Relationship Specialty Start Date End Date Janet Magaña MD PCP - General 02/23/19 documented as of this encounter
--- OUTSIDE RECORDS SUMMARY | 2025-01-12 15:37 | XMS_ITS | Encounter Summary ---
Author Organization [facility] [place], Address [address] [place] [address] Phone Care Team Providers Care Rheostat Assembler Name Role Phone Janet Magaña MD Primary Care Provider [phone] Encounter Details Date Type Department Care Team (Late st Contact Info) Description 09/05/2023 Orders Only [facility], [address] [place] [address] Jeffry Santana MD [address] [place] [phone] Stage 5 chronic kidney disease (HCC) Social [...] (HCC) documented in this encounter Care Teams Rheostat Assembler Relationship Specialty Start Date End Date Janet Magaña MD PCP - General 02/23/19 documented as of this encounter
--- OUTSIDE RECORDS SUMMARY | 2025-01-12 15:37 | XMS_ITS | Encounter Summary ---
Author Organization [facility], Address [address] [place] [address] Phone Care Team Providers Care Lead Software Engineer Name Role Phone Janet Magaña MD Primary Care Provider [phone] Encounter Details Date Type Department Care Team (Late st Contact Info) Description 08/05/2022 Documentation Only [facility], [address] [place] [address] Jeffry Santana MD [address] [place] [address] Social History Tobacco Use Types [...] on filedocumented in this encounter Care Teams Lead Software Engineer Relationship Specialty Start Date End Date Janet Magaña MD PCP - General 02/23/19 documented as of this encounter
--- OUTSIDE RECORDS SUMMARY | 2025-01-12 15:37 | XMS_ITS | Encounter Summary ---
Author Organization [facility] [place], Address [address] [place] [address] Phone Care Team Providers Care Shotgun Shell Loading Machine Operator Name Role Phone Janet Magaña MD Primary Care Provider [phone] Encounter Details Date Type Department Care Team (Late st Contact Info) Description 09/18/2022 Documentation Only [facility], [address] [place] [address] Merle Figueredo Social History Tobacco [...] on filedocumented in this encounter Care Teams Shotgun Shell Loading Machine Operator Relationship Specialty Start Date End Date Janet Magaña MD PCP - General 02/23/19 documented as of this encounter
--- OUTSIDE RECORDS SUMMARY | 2025-01-12 15:37 | XMS_ITS | Encounter Summary ---
Author Organization [facility] [place], Address [address] [place] [address] Phone Care Team Providers Care Emergency Management Program Specialist Name Role Phone Janet Magaña MD Primary Care Provider [phone] Encounter Details Date Type Department Care Team (Late st Contact Info) Description 03/25/2022 Documentation Only [facility], [address] [place] [address] Jeffry Santana MD [address] [place] [address] Social History Tobacco Use Types [...] on filedocumented in this encounter Care Teams Emergency Management Program Specialist Relationship Specialty Start Date End Date Janet Magaña MD PCP - General 02/23/19 documented as of this encounter
--- OUTSIDE RECORDS SUMMARY | 2025-01-12 15:37 | XMS_ITS | Encounter Summary ---
Author Organization [facility] [place], Address [address] [place] [address] Phone Care Team Providers Care Checker/Stocker Name Role Phone Janet Magaña MD Primary Care Provider [phone] Encounter Details Date Type Department Care Team (Late st Contact Info) Description 08/05/2022 Documentation Only [facility], [address] [place] [address] Jeffry Santana MD [address] [place] [address] Social History Tobacco Use Types [...] on filedocumented in this encounter Care Teams Checker/Stocker Relationship Specialty Start Date End Date Janet Magaña MD PCP - General 02/23/19 documented as of this encounter
--- OUTSIDE RECORDS SUMMARY | 2025-01-12 15:37 | XMS_ITS | Encounter Summary ---
Author Organization [facility] [place], Address [address] [place] [address] Phone Care Team Providers Care Materials Technician Name Role Phone Janet Magaña MD Primary Care Provider [phone] Encounter Details Date Type Department Care Team (Late st Contact Info) Description 03/21/2023 Orders Only [facility] [place], [address] [place] [address] Jeffry Santana MD [address] [facility] [place] [address] Stage 5 chronic kidney disease [...] (133-145) MMOL/L [facility] Potassium 4.9 (3.6-5.2) MMOL/L [facility] Chloride 111(H) (98-107) MMOL/L [facility] Bicarbonate (CO2) 19(L) (22-29) MMOL/L [facility] Anion Gap 12 (4-17) [facility] Albumin 3.7 (3.4-4.8) GM/DL [facility] Calcium 8.7 (8.6-10.5) MG/DL [facility] Phosphorus, Serum 4.4 (2.5-4.5) MG/DL [facility] Est GFR Non 9 ML/MIN/1.7 3 M2 [facility] Comment: Creatinine based estimated glomerular filtration (eGFR) in adults is calculated using the [employer] recommended 2020 CKD-EPI equation. Estimates GFR from serum creatinine, age and sex. Testing performed or reported by [facility], a Service of [facility], [address] [place] [address] Naun Ha MD, Osteopathic Medicine Teacher [facility]# [id number] Blood specimen (specimen) Venous blood / Unknown 03/24/2023 12:19 PM EST 03/24/2023 12:33 PM EST us Jeffry Santana MD LAB BLOOD ORDERABLES Final Resul t [facility] documented in this encounter Visit Diagnoses Diagnosis Stage 5 chronic kidney disease (HCC) documented in this encounter Care Teams Materials Technician Relationship Specialty Start Date End Date Janet Magaña MD PCP - General 02/23/19 documented as of this encounter
[2025-01-12 16:55] LABS: Alanine Aminotransferase 26 U/L (0-40); Albumin Level 4.2 g/dL (3.5-5.0); Alkaline Phosphatase 80 U/L (39-117); Aspartate Amino Transferase 29 U/L (5-37); Cholesterol 138 mg/dL (<200); HDL Cholesterol 38 mg/dL (>40); Total Protein 7.4 g/dL (6.5-8.0); Triglycerides 163 mg/dL (<150); Uric Acid 4.8 mg/dL (3.4-7.0)
[2025-01-12 19:16] LABS: Reflex LDLD? No
== END 2025-01-12 13:15 | disposition home or self-care (01) ==
LOC: HO.HHCL 13:14
PROVIDERS: PCP Family Medicine; Visit Provider Family Medicine
DX: M1A.30X0 Chronic gout due to renal impairment, unspecified site, without tophus (tophi) (principal); E11.22 Type 2 diabetes mellitus with diabetic chronic kidney disease; N18.6 End stage renal disease; E78.5 Hyperlipidemia, unspecified; Z99.2 Dependence on renal dialysis
CPT/HCPCS: 36415; 80061; 80076; 82306; 84550